=== PATIENT | male | born 1940 | race Caucasian/White ===

== ENCOUNTER → 2019-10-28 22:23 | Outpatient (CLI) | payer MEDICARE, OTHER ==
[2018-03-10 16:06] VITALS: BMI 21.9
[~2019-10-28 22:23] MED LIST: CLEOCIN HCL300 MG PO; LIBRIUM5 MG PO; LISINOPRIL10 MG PO; ZYLOPRIM300 MG PO
[2019-10-28 22:52] LABS: BASOPHILS 0.3 % (0-2); EOSINOPHILS 2.4 % (0-7); HEMOGLOBIN 12.3 g/dL (13.5-17.5); IMMATURE GRANULOCYTES 0.2 % (0-5); LYMPHOCYTES 12.3 % (15-50); MCH 32.7 pg (26.0-34.0); MCHC 32.4 g/dL (31.0-37.0); MCV 101.1 fL (80.0-100.0); MEAN PLATELET VOLUME 9.4 fL (7.4-10.4); MONOCYTES 11.7 % (2-11); NEUTROPHILS 73.1 % (40-80); RBC 3.76 10x6/uL (4.20-6.10); RDW 13.4 % (11.5-14.5); WBC 5.8 10x3/uL (4.8-10.8)
[2019-10-28 22:53] LABS: PLATELET COUNT 320 10x3/uL (130-400)
[2019-10-28 23:18] LABS: CALC OSMOLALITY 271 mosm/kg (275-300); CALCIUM 8.3 mg/dL (8.5-10.1); CARBON DIOXIDE 27.2 mmol/L (21.0-32.0); CHLORIDE - SERUM 103 mmol/L (98-107); GLUCOSE 93 mg/dL (74-106); POTASSIUM - SERUM 3.8 mmol/L (3.5-5.1); SODIUM 136 mmol/L (136-145); UREA NITROGEN 13 mg/dL (7-18); eGFR NON AFRICAN AMERICAN 77 mL/min (90-120)
== END | disposition home or self-care (01) ==
LOC: D.LABREF 22:23
PROVIDERS: ATTEND Family Medicine
DX: I10 Essential (primary) hypertension (principal)

== ENCOUNTER 2020-05-24 10:24 | Inpatient (IN) | payer MEDICARE, OTHER ==
[~2020-05-24] VITALS: Ht 170.2 cm; Wt 59.0 kg
[2020-05-24 11:58] LABS: BASOPHILS 0.1 % (0-2); EOSINOPHILS 0.1 % (0-7); HEMATOCRIT 39.2 % (42.0-54.0); HEMOGLOBIN 13.1 g/dL (13.5-17.5); IMMATURE GRANULOCYTES 0.2 % (0-5); LYMPHOCYTE ABS# 0.55 10x3/uL (1.32-3.57); LYMPHOCYTES 3.7 % (15-50); MCHC 33.4 g/dL (31.0-37.0); MCV 95.8 fL (80.0-100.0); MEAN PLATELET VOLUME 9.1 fL (7.4-10.4); MONOCYTES 4.1 % (2-11); NEUTROPHIL ABS# 13.76 10x3/uL (1.78-5.38); NEUTROPHILS 91.8 % (40-80); RBC 4.09 10x6/uL (4.20-6.10); RDW 13.8 % (11.5-14.5)
[2020-05-24 12:02] LABS: PLATELET COUNT 240 10x3/uL (130-400)
[2020-05-24 12:05] LABS: APTT 28.5 SECONDS (22.8-39.4); INR 1.23 (0.85-1.17); PROTIME 14.4 SECONDS (11.6-15.0)
[2020-05-24 12:06] LABS: CALC OSMOLALITY 271 mosm/kg (275-300); CALCIUM 8.3 mg/dL (8.5-10.1); CARBON DIOXIDE 26.8 mmol/L (21.0-32.0); CHLORIDE - SERUM 104 mmol/L (98-107); CREATININE - SERUM 0.9 mg/dL (0.6-1.3); GLUCOSE 139 mg/dL (74-106); SODIUM 135 mmol/L (136-145); UREA NITROGEN 13 mg/dL (7-18); eGFR NON AFRICAN AMERICAN 87 mL/min (90-120)
[2020-05-24 12:21] LABS: ALBUMIN 3.4 g/dL (3.4-5.0); ALKALINE PHOSPHATASE 76 U/L (30-120); ALT (SGPT) 16 U/L (10-68); BILIRUBIN - TOTAL 0.76 mg/dL (0.2-1.3); CREATINE KINASE 56 UL (21-232); MAGNESIUM - SERUM 1.8 mg/dL (1.8-2.4); PROTEIN - SERUM 6.1 g/dL (6.4-8.2); TROPONIN-I < 0.017 ng/mL (0.000-0.060)
--- NOTE | 2020-05-24 13:18 | NUR ---
URINE COLLECTED AND SENT TO LAB. URINE TYLER AND CLEAR IN COLOR.
[2020-05-24 13:55] LABS: BILIRUBIN NEGATIVE (NEGATIVE); KETONE MODERATE mg/dL (NEGATIVE); NITRITE NEGATIVE (NEGATIVE); UROBILINOGEN NORMAL mg/dL (< 2)
[2020-05-24 13:56] LABS: BACTERIA FEW HPF (NONE SEEN); WHITE CELLS - URINE 2 HPF (0-1)
[2020-05-24 15:28] VITALS: BP 107/74
[2020-05-24 18:33] VITALS: BP 137/85; BMI 20.4
[2020-05-24 18:36] LABS: HEMATOCRIT 38.2 % (42.0-54.0); HEMOGLOBIN 12.5 g/dL (13.5-17.5)
--- NOTE | 2020-05-24 18:48 | NUR ---
IN BED, DENIES NEEDS AT THIS TIME. BED LOW POSITION, CALL LIGHT IN REACH. MAL ALARM ON, IV INFUSING PER MAR. WILL CONTINUE TO MONITOR.
--- NOTE | 2020-05-24 19:24 | NUR ---
PATIENT UNABLE TO VOID AT THIS TIME. PATIENT STATED HE HAS NOT URINATED SINCE THIS MORNING. BLADDER SCAN REVEALED 485 ML.
[2020-05-24] MEDS ORDERED: BAYER CHEWABLE81 MG PO (19:34)
--- NOTE | 2020-05-24 19:37 | NUR ---
EUSEBIO MOSES IN REGARDS TO PATIENT BEING UNABLE TO VOID.
--- NOTE | 2020-05-24 19:37 | NUR ---
SPOKE WITH PATIENT'S AND UPDATED HER ON PATIENT. ALSO GOT UPDATED MED LIST FROM PATIENT'S .
--- NOTE | 2020-05-24 19:42 | NUR ---
SPOKE WITH AURELIA AND MARLYN'D ORDER FOR HAQUE CATH PLACEMENT
[2020-05-24 20:00] VITALS: BP 140/92
--- NOTE | 2020-05-24 21:26 | NUR ---
PLACED 22G TO PATIENT'S RIGHT FA.
--- NOTE | 2020-05-24 22:24 | NUR ---
PAGETari MOSES, COMPUTER GRAPHICS ILLUSTRATOR, IN REGARDS TO PATIENT'S ELEVATED PULSE
[2020-05-24 22:55] LABS: HEMATOCRIT 37.8 % (42.0-54.0); HEMOGLOBIN 12.7 g/dL (13.5-17.5)
[2020-05-25] VITALS (12 sets, daily range): BP systolic 87–147; BP diastolic 50–85
[2020-05-25 05:24] LABS: BASOPHILS 0.2 % (0-2); EOSINOPHILS 0 % (0-7); HEMATOCRIT 36.2 % (42.0-54.0); HEMOGLOBIN 11.9 g/dL (13.5-17.5); IMMATURE GRANULOCYTES 0.2 % (0-5); LYMPHOCYTE ABS# 0.77 10x3/uL (1.32-3.57); LYMPHOCYTES 6.6 % (15-50); MCH 32.1 pg (26.0-34.0); MCHC 32.9 g/dL (31.0-37.0); MCV 97.6 fL (80.0-100.0); MEAN PLATELET VOLUME 9.5 fL (7.4-10.4); MONOCYTES 11.5 % (2-11); NEUTROPHIL ABS# 9.44 10x3/uL (1.78-5.38); NEUTROPHILS 81.5 % (40-80); PLATELET COUNT 236 10x3/uL (130-400); RBC 3.71 10x6/uL (4.20-6.10); RDW 14.1 % (11.5-14.5); WBC 11.6 10x3/uL (4.8-10.8)
[2020-05-25 06:10] LABS: ALBUMIN 2.9 g/dL (3.4-5.0); BILIRUBIN - TOTAL 1.09 mg/dL (0.2-1.3); CALCIUM 8.1 mg/dL (8.5-10.1); CARBON DIOXIDE 23.8 mmol/L (21.0-32.0); CREATININE - SERUM 1.1 mg/dL (0.6-1.3); MAGNESIUM - SERUM 2.4 mg/dL (1.8-2.4); POTASSIUM - SERUM 3.8 mmol/L (3.5-5.1)
--- NOTE | 2020-05-25 08:12 | NUR ---
SPOKE TO DEN ADAIR APN. SPOKE ABOUT PATIENT SAFETY. HE IS PULLING IV OUT, PULLING AT HAQUE CATHETER CAUSING BLEEDING, AND PULLING TELEMETRY PADS OFF. PLACED SOFT WRIST RESTRAINTS ON LEFT AND RIGHT WRISTS.
[2020-05-25 08:35] LABS: INR 1.33 (0.85-1.17); PROTIME 15.3 SECONDS (11.6-15.0)
--- NOTE | 2020-05-25 10:48 | NUR ---
PATIENT LEFT UNIT VIA BED TO SURGERY PROCEDURE AT THIS TIME.
--- NOTE | 2020-05-25 13:11 | NUR ---
PT ARRIVED TO OR IN 2 PT SOFT RESTRAINTS SECONDARY TO CONFUASION RESULTING IN ATTEMPTS TO PULL OUT IV AND HAQUE CATHETER. PT VERY CONFUSED PER POST-OP REPORT. 2 PT SOFT RESTRAINTS CONTINUED BASED UPON ASSESSMENT.
--- NOTE | 2020-05-25 13:35 | NUR ---
RECIEVED TELEPHONE REPORT FROM RECOVERY ROOM NURSE MEHNAZ BRUNO.
--- NOTE | 2020-05-25 14:09 | NUR ---
PT REMAINS IN 2 PT SOFT RESTRAINTS DUE TO CONTINUED ATTEMPTS TO PULL ON HAQUE CATHETER AND IV. REPORT GIVEN TO RECEIVING RN ON MED/SURG
--- NOTE | 2020-05-25 14:54 | NUR ---
PATIENT BACK ON UNIT FROM RECOVERY ROOM VIA BED. SOFT WRIST RESTRAINTS IN PLACE. PATIENT STILL ATTEMPTING TO PULL AT IV LINES, AND TELEMETRY PADS. VITAL SIGNS STABLE. NASAL CANNULA 4 LITERS OXYGEN AT 95%. BED LOW POSITION, CALL LIGHT IN REACH. WILL CONTINUE TO MONITOR.
[2020-05-25 17:09] LABS: HEMATOCRIT 30.4 % (42.0-54.0); HEMOGLOBIN 9.8 g/dL (13.5-17.5)
--- NOTE | 2020-05-25 18:52 | NUR ---
ADMINISTERED 250ML BOLUS PER ORDERS.
--- NOTE | 2020-05-25 21:27 | NUR ---
ADMINISTERED MEDS PER ORDERS. PATIENT MAZIN WELL. DENIES OTHER NEEDS AT THIS TIME.
[2020-05-25 23:09] LABS: HEMATOCRIT 28.7 % (42.0-54.0); HEMOGLOBIN 9.3 g/dL (13.5-17.5)
[2020-05-26 03:59] VITALS: BP 134/57
--- NOTE | 2020-05-26 05:57 | NUR ---
DID NOT REMOVE HAQUE PER ORDER. WILL ASK DAYSHIFT NURSE TO DISCUSS REMOVAL WITH ORDERING PHYSICIAN. HAQUE PLACEMENT RELATED TO URINARY RETENTION.
--- NOTE | 2020-05-26 06:28 | NUR ---
NOTIFIED JADEN SUAREZ OF 200ML OUTPUT IN HAQUE CATH.
[2020-05-26 07:14] LABS: BASOPHILS 0.1 % (0-2); EOSINOPHILS 0.5 % (0-7); HEMATOCRIT 27.1 % (42.0-54.0); HEMOGLOBIN 8.6 g/dL (13.5-17.5); IMMATURE GRANULOCYTES 0.2 % (0-5); LYMPHOCYTE ABS# 0.91 10x3/uL (1.32-3.57); LYMPHOCYTES 9.5 % (15-50); MCH 31.5 pg (26.0-34.0); MCHC 31.7 g/dL (31.0-37.0); MCV 99.3 fL (80.0-100.0); MEAN PLATELET VOLUME 9.4 fL (7.4-10.4); MONOCYTES 10.7 % (2-11); NEUTROPHIL ABS# 7.52 10x3/uL (1.78-5.38); RDW 14.1 % (11.5-14.5); WBC 9.5 10x3/uL (4.8-10.8)
[2020-05-26 07:33] LABS: ALKALINE PHOSPHATASE 40 U/L (30-120); ALT (SGPT) 11 U/L (10-68); BILIRUBIN - TOTAL 0.67 mg/dL (0.2-1.3); CALCIUM 7.4 mg/dL (8.5-10.1); CARBON DIOXIDE 23.2 mmol/L (21.0-32.0); CHLORIDE - SERUM 110 mmol/L (98-107); GLUCOSE 89 mg/dL (74-106); MAGNESIUM - SERUM 2.6 mg/dL (1.8-2.4); POTASSIUM - SERUM 3.6 mmol/L (3.5-5.1); SODIUM 140 mmol/L (136-145); eGFR NON AFRICAN AMERICAN 77 mL/min (90-120)
[2020-05-26 07:35] LABS: CALC OSMOLALITY 281 mosm/kg (275-300); PROTEIN - SERUM 4.4 g/dL (6.4-8.2); UREA NITROGEN 24 mg/dL (7-18)
[2020-05-26 07:38] LABS: RBC 2.73 10x6/uL (4.20-6.10)
[2020-05-26 07:39] LABS: PLATELET COUNT 160 10x3/uL (130-400)
[2020-05-26 09:01] VITALS: BP 96/59
--- NOTE | 2020-05-26 09:25 | NUR ---
PT SITTING UP IN BED. AWAKE ALERT TO PERSON ONLY. DOES NOT PRESENT WITH PAIN. SPEECH IS GARBLED. HE IS RESTLESS ATTEMPTING TO PULL AT TELEMETRY AND F/C TUBING. SOFT WRIST RESTRAINTS IN PLACE BILATERALLY. PULSES PALPABLE EXTREMITIES WARM TO TOUCH. ENCOURAGED PT IN EATING ASSISTING HIM, HOWEVER PT TURNS HEAD AWAY FROM STAFF. CL WITHIN REACH. CONTINUE POC
[2020-05-26 11:15] LABS: HEMATOCRIT 28.4 % (42.0-54.0)
[2020-05-26 14:04] LABS: SARS-CoV-2 ANTIGEN NEGATIVE- SARS-COV-2 (NEGATIVE)
[2020-05-26 14:28] VITALS: BP 108/54
[2020-05-26 18:33] VITALS: BP 120/54
[2020-05-26 20:35] LABS: HEMATOCRIT 26.1 % (42.0-54.0); HEMOGLOBIN 8.6 g/dL (13.5-17.5)
--- NOTE | 2020-05-26 21:00 | NUR ---
Assumed care of pt at 1900. Report rec'd. Pt is in bed and resting with patent IV running per order. Pt has been repositioned to assist with pain and this was effective. Pt does continue to shift bottom half of body over to the Rt side and attempt to masturbate with barkley cath in. Pt repositioned now 3 times to prevent same. Pt does calm with voice and does not appear to be in any distress. Pt does also try to pinch and pull at staff providing cares if soft wrist restraints off. Son Davon called this evening as well.
[2020-05-26 21:18] VITALS: BP 151/63
[2020-05-27 00:51] VITALS: BP 116/57
--- NOTE | 2020-05-27 00:52 | NUR ---
Pt does continue to shift bottom and try pinching staff. This nurse continues to reposition pt. and check/release restraints. Pt remains mumbling incoherent words, addendum from last note. Does calm with voice and reassurance.
[2020-05-27 03:13] LABS: BASOPHILS 0.2 % (0-2); EOSINOPHILS 1.9 % (0-7); HEMATOCRIT 26.1 % (42.0-54.0); HEMOGLOBIN 8.5 g/dL (13.5-17.5); IMMATURE GRANULOCYTES 0.1 % (0-5); LYMPHOCYTE ABS# 0.95 10x3/uL (1.32-3.57); LYMPHOCYTES 10.6 % (15-50); MCH 32.1 pg (26.0-34.0); MCHC 32.6 g/dL (31.0-37.0); MCV 98.5 fL (80.0-100.0); MEAN PLATELET VOLUME 9.2 fL (7.4-10.4); MONOCYTES 9.2 % (2-11); NEUTROPHIL ABS# 6.96 10x3/uL (1.78-5.38); PLATELET COUNT 185 10x3/uL (130-400); RBC 2.65 10x6/uL (4.20-6.10); RDW 13.8 % (11.5-14.5); WBC 8.9 10x3/uL (4.8-10.8)
[2020-05-27 03:21] LABS: INR 1.31 (0.85-1.17); PROTIME 15.1 SECONDS (11.6-15.0)
[2020-05-27 03:27] LABS: ALBUMIN 2.2 g/dL (3.4-5.0); ALKALINE PHOSPHATASE 49 U/L (30-120); BILIRUBIN - TOTAL 0.96 mg/dL (0.2-1.3); CALC OSMOLALITY 285 mosm/kg (275-300); CALCIUM 7.2 mg/dL (8.5-10.1); CARBON DIOXIDE 23.1 mmol/L (21.0-32.0); CHLORIDE - SERUM 110 mmol/L (98-107); GLUCOSE 79 mg/dL (74-106); MAGNESIUM - SERUM 2.2 mg/dL (1.8-2.4); POTASSIUM - SERUM 3.9 mmol/L (3.5-5.1); PROTEIN - SERUM 5.1 g/dL (6.4-8.2); SODIUM 142 mmol/L (136-145); UREA NITROGEN 24 mg/dL (7-18); eGFR NON AFRICAN AMERICAN 77 mL/min (90-120)
[2020-05-27 03:31] LABS: ALT (SGPT) 14 U/L (10-68)
--- NOTE | 2020-05-27 05:44 | NUR ---
Pt is resting in bed at this time. Pt did answer yes to last assessment of pain with PRN MS given and effective results achieved. Pt has slept well since. Pt does wake to painful stimuli and removal or blankets but, otherwise sleeping soundly. Soft wrist restraints remain as pt has removed dressing to Rt distal hip incion, broken O2 cannula and removed secure cath strip t/o the night. No s/sx of pain/discomfort at this time.
[2020-05-27 05:48] VITALS: BP 121/58
[2020-05-27 07:56] VITALS: BP 135/87
--- NOTE | 2020-05-27 09:35 | NUR ---
PT RESTING QUIETLY IN BED AFTER PROVIDING PERSONAL CARE. ATTEMPTED TO ADMINISTER AM MEDICATIONS, PT AROUSES, BUT NOT SUFFICIENTLY TO ADMINISTER ORAL MEDICATIONS HE WILL NOT SAFELY CONSUME ORAL LIQUIDS. ATTEMPTED TO ASSIST PT WITH EATING BREAKFAST, BUT PT WOULD NOT OPEN MOUTH TO EAT. BILAT SOFT WRIST RESTRAINTS REMOVED AT THIS TIME TO PROVIDE ROM, PT THEN BEGINS PULLING AT F/C AND TELEMETRY, SO BILAT SOFT WRIST RESTRAINTS PLACED BACK ON PT. CL WITHIN REACH. HOB UP 30 DEGREES. CONTINUE POC
--- NOTE | 2020-05-27 10:00 | NUR ---
CONTACTED PT SPOUSE FOR UPDATE.
[2020-05-27 10:55] VITALS: Ht 170.2 cm; Wt 59.0 kg
[2020-05-27 12:23] VITALS: BP 154/77
[2020-05-27 13:11] LABS: HEMATOCRIT 26.9 % (42.0-54.0); HEMOGLOBIN 8.5 g/dL (13.5-17.5)
--- NOTE | 2020-05-27 14:00 | NUR ---
PT REPOSITIONED FOR COMFORT. SOFT WRIST RESTRAINTS REMOVED FOR ROM. OFFERED WATER AT THIS TIME. PT WOULD TAKE STRAW IN MOUTH, BUT BLOW ON STRAW. ATTEMPTED TO ASSIST PT WITH DRINKING FROM CUP, BUT PT ONLY JERKED HEAD AWAY FROM CUP. ATTEMPTED TO SPOON FEED WATER TO PT, PT CLAMPED LIPS TOGETHER, PREVENTING STAFF FROM PROVIDING HYDRATION. WILL CONTINUE TO OFFER HYDRATION. BILAT WRIST RESTRAINTS PLACED DUE TO CONTINUED PULLING F/C, REMOVING O2 AND ATTEMPTING TO GRAB STAFF FOR ASSISTING HIM, PT STAFF. CL WITHIN REACH.
--- NOTE | 2020-05-27 17:00 | NUR ---
PT BILAT SOFT WRIST TAKEN OFF FOR ROM AND SKIN ASSESSMENT. PROVIDED AUGUSTO CARE/F/C CARE. DRESSING CHANGE COMPLETED AT THIS TIME. CLEANED 3 INCISIONS TO RIGHT HIP WITH SALINE. ADRIENNE INTACT TO 3 INCISIONS, EDGES WELL APPROXIMATED. SEROSANGUINEOUS DRAINAGE NOTED FROM ANTERIOR INCISION. LINENS CHANGED TO BED. BILAT SOFT WRIST RESTRAINTS PLACED BACK ON PT.
[2020-05-27 17:02] LABS: HEMATOCRIT 27.1 % (42.0-54.0); HEMOGLOBIN 8.7 g/dL (13.5-17.5)
[2020-05-27 17:15] VITALS: BP 160/97
--- NOTE | 2020-05-27 19:45 | NUR ---
Assumed care of pt at shift change. Pt in bed resting and does answer some questions with yes or no but, continues to make incomprehensible sounds. Pt is slightly restless. Did assist with repositioning and restraint assessment. Pt continues to throw blankets, sheet and gown off. Assisted to replace same. Pt did answer yes to pain on assessment. Will administer pain meds per PRN order. IV and barkley both patent.
[2020-05-27 20:31] VITALS: BP 154/100
[2020-05-27 23:41] LABS: HEMATOCRIT 27.2 % (42.0-54.0); HEMOGLOBIN 9.1 g/dL (13.5-17.5)
[2020-05-28 00:25] VITALS: BP 165/98
[2020-05-28 04:01] VITALS: BP 152/86
--- NOTE | 2020-05-28 06:12 | NUR ---
Pt is sleeping in bed at this time. Did continue to remain restless and kicking off blankets, trying to pull on tubing, dressing and even foly cath. Cath secure clamp pulled off by pt twice t/o the night. Pt does settle and sleep after repositioning. Pt asleep this morning and could not wake for med. Pt took meds last night in pudding and a significant amount of coaching, reminders and feeding. Only able to get 15ml of pudding and 40ml of apple juice in pt t/o the night. Will request day shift speak to hospitalist in regards to am PO Protonix possibly being changed to IV.
[2020-05-28 06:58] LABS: INR 1.44 (0.85-1.17); PROTIME 16.3 SECONDS (11.6-15.0)
[2020-05-28 07:07] LABS: ALBUMIN 2.4 g/dL (3.4-5.0); ALKALINE PHOSPHATASE 48 U/L (30-120); ALT (SGPT) 15 U/L (10-68); BILIRUBIN - TOTAL 1.15 mg/dL (0.2-1.3); CALC OSMOLALITY 278 mosm/kg (275-300); CALCIUM 7.7 mg/dL (8.5-10.1); CARBON DIOXIDE 17.3 mmol/L (21.0-32.0); CHLORIDE - SERUM 108 mmol/L (98-107); CREATININE - SERUM 0.7 mg/dL (0.6-1.3); GLUCOSE 69 mg/dL (74-106); MAGNESIUM - SERUM 2.1 mg/dL (1.8-2.4); POTASSIUM - SERUM 3.4 mmol/L (3.5-5.1); PROTEIN - SERUM 5.4 g/dL (6.4-8.2); SODIUM 141 mmol/L (136-145); UREA NITROGEN 13 mg/dL (7-18); eGFR NON AFRICAN AMERICAN > 90 mL/min (90-120)
[2020-05-28 07:35] LABS: BASOPHILS 0.1 % (0-2); EOSINOPHILS 2.1 % (0-7); HEMATOCRIT 26.1 % (42.0-54.0); HEMOGLOBIN 8.4 g/dL (13.5-17.5); IMMATURE GRANULOCYTES 0.2 % (0-5); LYMPHOCYTE ABS# 0.94 10x3/uL (1.32-3.57); LYMPHOCYTES 10.3 % (15-50); MCH 31.8 pg (26.0-34.0); MCHC 32.2 g/dL (31.0-37.0); MCV 98.9 fL (80.0-100.0); MEAN PLATELET VOLUME 9.4 fL (7.4-10.4); MONOCYTES 8.8 % (2-11); NEUTROPHIL ABS# 7.15 10x3/uL (1.78-5.38); NEUTROPHILS 78.5 % (40-80); RBC 2.64 10x6/uL (4.20-6.10); RDW 13.6 % (11.5-14.5); WBC 9.1 10x3/uL (4.8-10.8)
[2020-05-28 07:38] LABS: PLATELET COUNT 265 10x3/uL (130-400)
[2020-05-28 08:13] VITALS: BP 132/78
--- NOTE | 2020-05-28 08:47 | NUR ---
SPOKE WITH DR BARAJAS REGARDING CONSULT. STATES HE WILL BE HERE TO SEE HIM
[2020-05-28 10:53] LABS: HEMATOCRIT 24.9 % (42.0-54.0); HEMOGLOBIN 8.1 g/dL (13.5-17.5)
[2020-05-28 12:30] VITALS: BP 134/71
[2020-05-28 17:24] LABS: HEMATOCRIT 27.6 % (42.0-54.0); HEMOGLOBIN 8.9 g/dL (13.5-17.5)
[2020-05-28 18:35] VITALS: BP 162/94
[2020-05-28 23:56] LABS: HEMATOCRIT 27.9 % (42.0-54.0); HEMOGLOBIN 9.5 g/dL (13.5-17.5)
[2020-05-29 00:55] VITALS: BP 144/88
--- NOTE | 2020-05-29 01:09 | NUR ---
This nurse did scna pt medications with wrist band before admin at HS. Pt was able to eat 1/2 of apple crisp at bedside and did drink 360ml of water. Pt took meds with encouragement and between bites of apple crisp and drinks of water. Pt later became combative and resistive to cares with Staff. Pt was also picking at jenna to Rt hip incision and ripped off dressing. Pt denied pain so ativen given per PRN order. Pt has finally settled after repositioning again with a warm blanket. Pt has been turned with pressure relief to Rt side/buttock and, pt continues to turn self to that side.
[2020-05-29 05:15] VITALS: BP 123/56; BP 155/59
[2020-05-29 07:38] LABS: INR 1.46 (0.85-1.17); PROTIME 16.4 SECONDS (11.6-15.0)
[2020-05-29 07:40] LABS: BASOPHILS 0.2 % (0-2); EOSINOPHILS 4.3 % (0-7); HEMATOCRIT 26.7 % (42.0-54.0); HEMOGLOBIN 8.9 g/dL (13.5-17.5); IMMATURE GRANULOCYTES 0.1 % (0-5); LYMPHOCYTE ABS# 1.02 10x3/uL (1.32-3.57); LYMPHOCYTES 12.6 % (15-50); MCH 32.1 pg (26.0-34.0); MCHC 33.3 g/dL (31.0-37.0); MCV 96.4 fL (80.0-100.0); MEAN PLATELET VOLUME 8.9 fL (7.4-10.4); MONOCYTES 13.1 % (2-11); NEUTROPHIL ABS# 5.62 10x3/uL (1.78-5.38); NEUTROPHILS 69.7 % (40-80); PLATELET COUNT 268 10x3/uL (130-400); RBC 2.77 10x6/uL (4.20-6.10); RDW 13.1 % (11.5-14.5); WBC 8.1 10x3/uL (4.8-10.8)
[2020-05-29 07:55] LABS: ALBUMIN 2.2 g/dL (3.4-5.0); ALKALINE PHOSPHATASE 44 U/L (30-120); ALT (SGPT) 16 U/L (10-68); BILIRUBIN - TOTAL 0.98 mg/dL (0.2-1.3); CALCIUM 8.1 mg/dL (8.5-10.1); CHLORIDE - SERUM 106 mmol/L (98-107); CREATININE - SERUM 0.7 mg/dL (0.6-1.3); MAGNESIUM - SERUM 1.9 mg/dL (1.8-2.4); POTASSIUM - SERUM 3.3 mmol/L (3.5-5.1); PROTEIN - SERUM 5.4 g/dL (6.4-8.2); SODIUM 137 mmol/L (136-145); UREA NITROGEN 11 mg/dL (7-18); eGFR NON AFRICAN AMERICAN > 90 mL/min (90-120)
[2020-05-29 07:59] LABS: CALC OSMOLALITY 273 mosm/kg (275-300); CARBON DIOXIDE 22.7 mmol/L (21.0-32.0); GLUCOSE 111 mg/dL (74-106)
--- NOTE | 2020-05-29 09:39 | NUR ---
ALERT BUT NOT VERBALLY RESPONSIVE TO QUESTIONS. FOLLOWS COMMANDS. ASSESSMENT COMPLETE. BED LOW. CALL MORSE AND PERSONAL ITEMS IN REACH. WILL CONTINUE TO MONITOR.
[2020-05-29 10:26] VITALS: BP 153/87
--- NOTE | 2020-05-29 11:00 | NUR ---
Nutrition follow-up: Pt receiving a regular diet; po intake very poor at meals per nurse Labs reviewed Wt: 130# No BM charted ProcalAmine PPN has started @ 75 ml/hr; providin kcal - 21-30% of estimated kcal needs 54 gm protein - 72-90% estimted protein needs Recommendations: Pt may benefit from an appetite stimulant. RDN follow-up: 06/01/20
[2020-05-29 11:01] LABS: HEMATOCRIT 28.3 % (42.0-54.0); HEMOGLOBIN 9.4 g/dL (13.5-17.5)
--- NOTE | 2020-05-29 11:34 | NUR ---
SIGN PLACED ABOVE DOOR STATING PATIENT IS FEEDER PER NURSING MESSAGE.
--- NOTE | 2020-05-29 12:29 | NUR ---
Nutrition follow-up: Pt discussed during IDT team meeting. Per speech pathologist, diet downgraded to regular puree ProcalAmine PPN infusing @ 75 ml/hr Labs reviewed Wt: 130# Still no BM charted; on colace Recommendations: Continue procalamine PPN @ 75 ml/hr Consider appetite stimulant RDN follow-up: 06/01/20
--- NOTE | 2020-05-29 12:43 | NUR ---
PATIENT REFUSING TO EAT LUNCH AT THIS TIME. WILL ATTEMPT AGAIN LATER.
[2020-05-29 15:12] VITALS: BP 145/94
--- NOTE | 2020-05-29 16:34 | NUR ---
PATIENT KNOCKED TRAY ON FLOOR. BEDDING CHANGED. ADJUSTED IN BED. AGGITATED ABOUT BEING ADJUSTED. STATES "IM GOING TO HIT YOU." SWINGING ARMS AND PULLING AT CATHETER. PLACED BACK IN RESTRAINTS. WILL CONTINUE TO MONITOR.
[2020-05-29 17:20] LABS: HEMATOCRIT 30.1 % (42.0-54.0)
--- NOTE | 2020-05-29 18:04 | NUR ---
PATIENT REQUESTING TO SPEAK WITH OR JADEN. JADEN SUAREZ NOTIFIED AND STATES WILL CALL PATIENT'S . PHONE NUMBER PROVIDED.
[2020-05-29 19:30] VITALS: BP 161/92
--- NOTE | 2020-05-29 19:42 | NUR ---
Assumed care of pt with report. Pt is lying in bed and resting at this time. Pt is alert but remains confused. Continuing to utilizes Numeric pain scale to assess for same. Reporsitioning is effective to assist with relief. IV and barkley remain patent. SOft wrist restraints assessed per protocal and CMS remains intact to all 4 extremities. Tele remains on and functioning appropriately.
[2020-05-29 21:01] VITALS: BP 164/95
[2020-05-29 23:08] LABS: HEMOGLOBIN 9.4 g/dL (13.5-17.5)
--- NOTE | 2020-05-29 23:15 | NUR ---
Pt has been alert this shift and still intermittently answering yes or no questions. Has denied pain and repositioning does assist when numeric scale has indicated pain is present. Pt did accept pills tonight however, did spit out his colace. Did attempt to give several times and pt refused same. In bed resting currently. IV remains patent and continuing with restraint assessments.
[2020-05-30 00:24] VITALS: BP 142/50
[2020-05-30 05:55] VITALS: BP 145/80
--- NOTE | 2020-05-30 06:07 | NUR ---
Pt has been alert and awake most of the night. Repositioned many times t/o night and attempted to just leave one limb in soft wrist restraint with this nurse present. Pt continued to pull at lines, barkley, etc. Unable to educate or redirect without this nurse being grabbed at and pinched. Pt has otherwise been calm and cooperative. Dressing changed to Rt hip as pt removed when one hand was free.
[2020-05-30 06:48] LABS: BASOPHILS 0.3 % (0-2); EOSINOPHILS 2.9 % (0-7); HEMATOCRIT 28.4 % (42.0-54.0); HEMOGLOBIN 9.6 g/dL (13.5-17.5); IMMATURE GRANULOCYTES 0.2 % (0-5); LYMPHOCYTE ABS# 1.18 10x3/uL (1.32-3.57); LYMPHOCYTES 12.3 % (15-50); MCH 32.2 pg (26.0-34.0); MCHC 33.8 g/dL (31.0-37.0); MCV 95.3 fL (80.0-100.0); MEAN PLATELET VOLUME 9.3 fL (7.4-10.4); MONOCYTES 11.7 % (2-11); NEUTROPHIL ABS# 6.96 10x3/uL (1.78-5.38); NEUTROPHILS 72.6 % (40-80); PLATELET COUNT 320 10x3/uL (130-400); RBC 2.98 10x6/uL (4.20-6.10); WBC 9.6 10x3/uL (4.8-10.8)
[2020-05-30 07:06] LABS: INR 1.49 (0.85-1.17); PROTIME 16.7 SECONDS (11.6-15.0)
[2020-05-30 08:36] VITALS: BP 131/63
[2020-05-30 11:12] LABS: HEMATOCRIT 28.2 % (42.0-54.0); HEMOGLOBIN 9.3 g/dL (13.5-17.5)
--- NOTE | 2020-05-30 11:40 | NUR ---
RESTING IN BED, NO DISTRESS NOTED, WRIST RESTRAINTS IN PLACE, IV PROCAL INFUSING, O2 PER NC, HAQUE TO GRAVITY, URINE CONCENTRATED, TELE IN PLACE, CONT TO MONITOR
[2020-05-30 12:08] VITALS: BP 114/66
--- NOTE | 2020-05-30 15:59 | NUR ---
CALLED CONCERNED ABOUT PT TOE NAILS AND POOR INTAKE WITH HIM SLEEPING ALL DAY, WILL HOLD PT SUPPER TRAY TILL LATE AND SEE IF PT WAKES UP AND EATS
[2020-05-30 17:06] VITALS: BP 116/65
[2020-05-30 17:33] LABS: HEMATOCRIT 28.1 % (42.0-54.0); HEMOGLOBIN 9.3 g/dL (13.5-17.5)
--- NOTE | 2020-05-30 19:20 | NUR ---
Assumed care of pt after rounds/report. Pt lying in bed alert and oriented to self. Pt stated, "I fell". This nurse replied, "Yes you did". Pt teaching about surgery and broken hip. Pt did grab right hip and said, "Yeah. I broke this one". Pt also asked about his daughter and why she didn't stay longer. Pt aware daughter had recently been in room. Pt refused all food except 1/3 of slice of pie in room. This nurse also assisted pt to take 180ml of fluid. Pt in bed resting at this time. Landa and IV remain patent.
[2020-05-30 20:37] VITALS: BP 116/73
[2020-05-30 23:40] LABS: HEMATOCRIT 27.7 % (42.0-54.0); HEMOGLOBIN 9.2 g/dL (13.5-17.5)
[2020-05-31 01:02] VITALS: BP 123/55
[2020-05-31 04:44] VITALS: BP 112/74
--- NOTE | 2020-05-31 07:42 | NUR ---
resting in bed, no distress noted, procal infusing, barkley to gravity, wrist restraints remain in place, cont to monitor
[2020-05-31 07:45] LABS: BASOPHILS 0.2 % (0-2); EOSINOPHILS 4.2 % (0-7); HEMATOCRIT 29.7 % (42.0-54.0); HEMOGLOBIN 9.8 g/dL (13.5-17.5); IMMATURE GRANULOCYTES 0.4 % (0-5); LYMPHOCYTE ABS# 1.25 10x3/uL (1.32-3.57); LYMPHOCYTES 13.3 % (15-50); MCH 31.7 pg (26.0-34.0); MCV 96.1 fL (80.0-100.0); MEAN PLATELET VOLUME 9.3 fL (7.4-10.4); NEUTROPHIL ABS# 6.66 10x3/uL (1.78-5.38); NEUTROPHILS 70.9 % (40-80); RBC 3.09 10x6/uL (4.20-6.10); RDW 13.5 % (11.5-14.5); WBC 9.4 10x3/uL (4.8-10.8)
[2020-05-31 07:49] LABS: PLATELET COUNT 397 10x3/uL (130-400)
[2020-05-31 07:58] LABS: INR 1.48 (0.85-1.17); PROTIME 16.7 SECONDS (11.6-15.0)
[2020-05-31 08:13] LABS: ALBUMIN 2.3 g/dL (3.4-5.0); ALKALINE PHOSPHATASE 49 U/L (30-120); ALT (SGPT) 18 U/L (10-68); BILIRUBIN - TOTAL 0.95 mg/dL (0.2-1.3); CALCIUM 8.5 mg/dL (8.5-10.1); CARBON DIOXIDE 27.8 mmol/L (21.0-32.0); CHLORIDE - SERUM 103 mmol/L (98-107); CREATININE - SERUM 0.7 mg/dL (0.6-1.3); GLUCOSE 93 mg/dL (74-106); PROTEIN - SERUM 6.1 g/dL (6.4-8.2); SODIUM 137 mmol/L (136-145); eGFR NON AFRICAN AMERICAN > 90 mL/min (90-120)
[2020-05-31 08:15] LABS: CALC OSMOLALITY 274 mosm/kg (275-300); POTASSIUM - SERUM 3.8 mmol/L (3.5-5.1); UREA NITROGEN 14 mg/dL (7-18)
--- NOTE | 2020-05-31 09:35 | EC ---
PATIENT:RENE ZHANG DATE OF SERVICE: 05/24/20 SEX: M MEDICAL RECORD: [id number] DATE OF : 44 LOCATION:[facility] AGE OF PATIENT: 79 ADMISSION DATE: 05/24/20 REFERRING PHYSICIAN: INTERPRETING PHYSICIAN: JAMES NEAL MD ECHOCARDIOGRAM REPORT ECHO CHARGES 5 ECHO LIMITED Date: 05/28/20 CLINICAL DIAGNOSIS: ARRHYTHMIA, ASSESS EF ECHOCARDIOGRAPHIC MEASUREMENTS (adult normal given) AC root (d.<3.7cm) 5.0 cm LV Septum d (<1.2 cm> 1.4 cm Valve Excursion 2.2 cm LV Septum (systole) 1.6 cm Left Atria (s.<4.0cm> 3.8 cm LVPW d(<1.2cm) 1.4 cm RV (d.<2.3cm) 3.7 cm LVPW (sytole) 1.7 cm LV diastole(<5.6CM) 4.7 cm MV E-F(>70mm/sec) cm LV systole 3.4 cm LVOT Diameter 2.1 cm MV exc.(>10mm) cm Est.ejection fraction (50-75%) % DOPPLER: LVIT cm/sec A cm/sec E cm/sec LA cm/sec RVSP mmHg LVOT cm/sec AOP1/2T m/s Asc. Ao cm/sec RVOT cm/sec RA cm/sec PA cm/sec AV Gradient Peak 6.42 mmHg AV Mean 3.49 mmHg AV Area 2.2 cm MV Gradient Peak mmHg MV Mean mmHg MV Area cm COMMENTS: Lpn Rn: 2 REINALDO MCCOY Technical Photographer: 3 Dr. Murcia TAPE# PACS Pericardial Effusion N DATE OF SERVICE: Adequate 2D, color flow imaging, spectral Doppler, and M-Mode. FINDINGS: Mild LVH. LV internal dimensions are normal. Wall motion is normal. EF is greater than or equal to 55%. Aortic valve is tricuspid. No evidence of stenosis by Doppler interrogation. Left atrium is normal. Mitral valve shows no prolapse. Trace MR. Right side is grossly normal. Trace TR. TRANSINT:[id number] Voice Confirmation ID: [id number] DOCUMENT ID: [id number] ECHOCARDIOGRAM REPORT [id number] RENE ZHANG JAMES NEAL MD at 0935 CC: [id number] DICTATION DATE: 05/29/20 1151 ART MANAGER: 05/29/20 1204 ADM IN [place] [id number] [facility], [facility]
[2020-05-31 10:34] VITALS: BP 122/80
[2020-05-31 11:00] VITALS: BP 154/61
[2020-05-31 12:11] LABS: HEMATOCRIT 28.8 % (42.0-54.0); HEMOGLOBIN 9.5 g/dL (13.5-17.5)
[2020-05-31 16:00] VITALS: BP 138/95
[2020-05-31 17:58] LABS: HEMATOCRIT 29.4 % (42.0-54.0); HEMOGLOBIN 9.8 g/dL (13.5-17.5)
--- NOTE | 2020-05-31 18:16 | NUR ---
MORE ALERT TODAY, PULLING LEGS UP TO HIS CHEST TO REMOVE SCD, REMOVING DRESSING FROM SURGICAL SITE X1 TODAY, WANTING TO CALL , PHONE LINE BUSY
--- NOTE | 2020-05-31 19:31 | NUR ---
Assumed care of pt after report/rounds. Pt in bed and significantly agitated. Has legs raised and pulling off SCD's along with tugging on Landa cath with other hand. Soft wrist restraints readjusted and checked. IV remains patent and running per order. Landa is patent and draining dark isaac urine. Pt on O2 via NC without SOB/dyspnea observed. Pt knows he is in [place] but, otherwise unclear where he is. Pt turned and repositioned in bed and this helped to settle a little.
[2020-05-31 19:58] VITALS: BP 159/99
--- NOTE | 2020-05-31 23:22 | NUR ---
Pt did accept 240ml of ice tea for this nurse along with 1/2 of the portioned mashed potatoes and gravy.
[2020-06-01 00:13] LABS: HEMATOCRIT 28.4 % (42.0-54.0); HEMOGLOBIN 9.6 g/dL (13.5-17.5)
[2020-06-01 04:52] LABS: BASOPHILS 0.2 % (0-2); EOSINOPHILS 3.1 % (0-7); HEMATOCRIT 27.8 % (42.0-54.0); HEMOGLOBIN 9.1 g/dL (13.5-17.5); IMMATURE GRANULOCYTES 0.2 % (0-5); LYMPHOCYTE ABS# 1.25 10x3/uL (1.32-3.57); MCH 31.8 pg (26.0-34.0); MCHC 32.7 g/dL (31.0-37.0); MCV 97.2 fL (80.0-100.0); MONOCYTES 12.7 % (2-11); NEUTROPHIL ABS# 6.82 10x3/uL (1.78-5.38); NEUTROPHILS 70.8 % (40-80); PLATELET COUNT 407 10x3/uL (130-400); RBC 2.86 10x6/uL (4.20-6.10); RDW 13.4 % (11.5-14.5); WBC 9.6 10x3/uL (4.8-10.8)
[2020-06-01 05:06] LABS: ALBUMIN 2.1 g/dL (3.4-5.0); ALKALINE PHOSPHATASE 52 U/L (30-120); ALT (SGPT) 16 U/L (10-68); BILIRUBIN - TOTAL 0.85 mg/dL (0.2-1.3); CALC OSMOLALITY 270 mosm/kg (275-300); CALCIUM 8.1 mg/dL (8.5-10.1); CARBON DIOXIDE 27.3 mmol/L (21.0-32.0); CHLORIDE - SERUM 102 mmol/L (98-107); CREATININE - SERUM 0.8 mg/dL (0.6-1.3); GLUCOSE 102 mg/dL (74-106); PROTEIN - SERUM 5.6 g/dL (6.4-8.2); SODIUM 135 mmol/L (136-145); UREA NITROGEN 15 mg/dL (7-18); eGFR NON AFRICAN AMERICAN > 90 mL/min (90-120)
[2020-06-01 06:24] VITALS: BP 103/64
--- NOTE | 2020-06-01 08:23 | NUR ---
RESTING QUIETLY WITH EYES CLOSED. NO NEEDS NOTED. SKIN IS INTACT WITHOUT REDNESS EXCEPT 3 SMALL INSERTION SITES TO RIGHT HIP WHICH ARE CLEAN AND DRY. LARGE HEMATOMA NOTED TO RIGHT HIP. THIS IS NOT NEW. IV TO RIGHT AC AREA PATENT WITHOUT REDNESS AT INSERTION SITE. HAQUE PATENT WITH CLEAR YELLOW URINE.
[2020-06-01 09:13] VITALS: BP 97/52
--- NOTE | 2020-06-01 10:00 | NUR ---
REFUSED ANY BREAKFAST. REFUSED OFFERS OF ALTERNATIVE MEALS. TOOK AM MEDS WITHOUT DIFFICULTY. DENIES NEEDS. HAQUE PATENT WITH CLEAR YELLOW URINE.
--- NOTE | 2020-06-01 10:31 | NUR ---
Rehab Prescreening Consult recieved and the chart has been reviewed. Per notes he has acute delerium possibly DT's combative, orritable and in wrist restraints. He is not mappropriate for the ARU at this time. Karolina Kirkland RN Clinical Liaison, Rehab
--- NOTE | 2020-06-01 10:37 | MORECARE ---
CASE MANAGEMENT DISCHARGE SUMMARY PATIENT: RENE ZHANG UNIT: [id number] ADM DATE: 05/24/20 AGE: 79 : 42 SEX: M ROOM/BED: D.2202 AUTHOR: BRITTNI AMATO PHYSICIAN: REFERRING PHYSICIAN: JULIAN REIS MD DATE OF SERVICE: 06/01/20 Discharge Plan Patient Name: RENE ZHANG Facility: [facility]:[place] : 1940 Planned Disposition: Inpatient Rehab Anticipated Discharge Date: Discharge Date: Expected LOS: Initial Reviewer: [email or web address] Initial Review Date: 05/24/2020 Generated: 06/01/20 11:36 am DCPIA - Discharge Planning Initial Assessment Updated by [email or web address]: Jena Pacheco on 06/01/20 10:35 am * Is the patient Alert and Oriented? Yes * How many steps to enter\exit or inside your home? * PCP NONE * Pharmacy [facility] * Preadmission Environment Home with Family * ADLs Independent * Equipment None * List name and contact numbers for known caregivers / representatives who currently or will assist patient after discharge: RIANA ( ) [phone] * Verbal permission to speak to the caregivers and representatives has been obtained from the patient. N/A * Community resources currently utilized None * Additional services required to return to the preadmission environment? Yes * Can the patient safely return to the preadmission environment? No * Has this patient been hospitalized within the prior 30 days at any hospital? No Patient Name: RENE ZHANG Page [id number] at 1037 All edits/amendments must be made on the electronic document DICTATION DATE: 06/01/20 1036 BOTTLE WASHER MACHINE: FLOR 06/01/20 1036 RPT#: [id number] DC DATE: STATUS: ADM IN [facility] [address] [place] [address] END OF REPORT
--- NOTE | 2020-06-01 10:53 | MORECARE ---
CASE MANAGEMENT DISCHARGE SUMMARY PATIENT: RENE ZHANG UNIT: [id number] ADM DATE: 05/24/20 AGE: 79 : 42 SEX: M ROOM/BED: D.2202 AUTHOR: BRITTNI AMATO PHYSICIAN: REFERRING PHYSICIAN: JULIAN REIS MD DATE OF SERVICE: 06/01/20 Discharge Plan Patient Name: RENE ZHANG Facility: [facility]:[place] : 1940 Planned Disposition: Inpatient Rehab Anticipated Discharge Date: Discharge Date: Expected LOS: Initial Reviewer: [email or web address] Initial Review Date: 05/24/2020 Generated: 06/01/20 11:53 am Comments DCP- Discharge Planning Updated by [email or web address]: Jena Pacheco on 06/01/20 9:[address] Patient Name: RENE ZHANG Admission Status: ER Accout number: [id number] Admission Date: 05-24-2020 : 1940 Admission Diagnosis:FRACTURE OF UNSP PART OF NECK OF RIGHT FEMUR, INIT Attending: JULIAN REIS Current LOS: 8 Anticipated DC Date: Planned Disposition: Inpatient Rehab Primary Insurance: MEDICARE A & B Discharge Planning Comments: CM met with patient 's over the phone to complete initial dc planning assessment. CM educated patient on the CM role and verbal consent given by patient to complete assessment. Patient lives at home with his spouse where he was independent with his care. His stated that he has not left his home in the past 7 months. 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 He had not needed any dme at home. She stated he has an ETOH problem and has since she has been to him. He sleeps on the couch at night. She would like for him to go to [facility] inpatient rehab when he is able to. He does not have a PCP, because he does not believe in MD's. She did make the comment that the patient has mentioned the that he has wanted to just . The reports he has been saying that for the past 3 years. I have not spoken with the patient, per NN he is confused and restrained. CM will continue to follow and will assist as needed with dc plans/needs. Traveling Engineer: Jena Pacheco DCPIA - Discharge Planning Initial Assessment Updated by [email or web address]: Jena Pacheco on 06/01/20 10:35 am * Is the patient Alert and Oriented? Yes * How many steps to enter\exit or inside your home? * PCP NONE * Pharmacy [facility] * Preadmission Environment Home with Family * ADLs Independent * Equipment None * List name and contact numbers for known caregivers / representatives who currently or will assist patient after discharge: RIAAN ( ) [phone] * Verbal permission to speak to the caregivers and representatives has been obtained from the patient. N/A * Community resources currently utilized None * Additional services required to return to the preadmission environment? Yes * Can the patient safely return to the preadmission environment? No * Has this patient been hospitalized within the prior 30 days at any hospital? No Last DP export: 06/01/20 9:37 a Patient Name: RENE ZHANG Page [phone] at 1053 All edits/amendments must be made on the electronic document DICTATION DATE: 06/01/20 105 FREEZER UNLOADER: FLOR 06/01/20 1053 RPT#: [id number] DC DATE: STATUS: ADM IN [facility] [address] [place] [address] END OF REPORT
[2020-06-01 12:01] VITALS: BP 108/78
[2020-06-01 12:03] LABS: HEMATOCRIT 28.1 % (42.0-54.0); HEMOGLOBIN 9.1 g/dL (13.5-17.5)
--- NOTE | 2020-06-01 12:30 | NUR ---
ATTEMPTED TO FEED PER STAFF. REFUSED ALL BUT 4 BITES. REFUSED OFFER OF ALTERNATIVE MEAL AND OR AN ENSURE. WILL MONITOR. VERY CONFUSED AT TIMES.
--- NOTE | 2020-06-01 12:37 | NUR ---
Nutrition reassessment/follow-up: Pt receiving a regular diet with 0 po recorded for the last 6 meals Pt is confused and in restraints; 1:1 feeding is required Labs reviewed Procalamine PPN infusing @ 75 ml/hr Wt: 129# 24 hour calorie count Estimated nutrition needs remain the same as original assessment 05/27/20 Pt is now assessed with severe malnutrion of acute illness R/T hip fracture AEB the following criteria: - BMI: 20.3 - < 50% intake of estimated energy needs for > 1 week Recommendations: Pt may benefit from an appetite stimulant 24 hour calorie count ordered Follow-up: 06/02/20
--- NOTE | 2020-06-01 13:30 | NUR ---
FOUND WITH O2 OFF. SAT AT 90% O2 REPLACE AND H2O BOTTLE ADDED. UP TO 96%. CONTINUES CONFUSED TO SITUATION.
--- NOTE | 2020-06-01 15:00 | NUR ---
FOUND WITH O2 OFF AGAIN. SATS AT 90%. O2 REPLACED AND SATSUP TO 95%. WILL MONITOR.
--- NOTE | 2020-06-01 17:39 | NUR ---
OT NOTE: PT DOING BETTER TODAY. PT MORE ALERT AND VERBALLY RESPONSIVE. ABLE TO FOLLOW 75% 1 STEP COMMANDS. PT IS VERY WEAK AND DECONDITIONED. PERFORMED GROOMING TASKS WITH MIN ASSIST TODAY. MAX ASSIST WITH BED MOB AND SUPINE TO SIT. PT WAS ORIENTED X PERSON AND PLACE (HE KNEW THAT HE WAS IN THE HOSPITAL, BUT DID NOT KNOW THE NAME).. JOVITA NASH, OTR/L
--- NOTE | 2020-06-01 17:46 | NUR ---
FOUND WITH CATHETER TORN IN HALF AND OUT. LOTS OF BLOODY DRAINAGE NOTED. LINENS CHANGED AND SKIN CARE PER STAFF. HAQUE REPLACED AFTER ONE STERILE ATTEMPT WITH 18F. WILL MONITOR.
[2020-06-01 18:15] VITALS: BP 158/71
--- NOTE | 2020-06-01 18:25 | NUR ---
ATE ONLY A FEW BITES OF SUPPER. REFUSED MORE AND OFFERS OF ALTERNATIVE. NO NEEDS NOTED. NO CHANGES NOTED.
[2020-06-01 21:36] VITALS: BP 155/74
--- NOTE | 2020-06-01 22:30 | NUR ---
Assumed care of pt after report/rounds. Pt remains confused but, oriented to self and did tell staff how to pronounce last name marifer in room. Pt's barkley remains patent but, there is blood in both the barkley and around the head of the penis from prior self inflicted trauma. IV remains patent and running per order. Pt lying in bed and continues to figet with blanket and gown. Pt safe and restraints assessment completed.
[2020-06-02] VITALS: BP 94/56
--- NOTE | 2020-06-02 04:43 | NUR ---
Pt has remained in bed resting. Pt has not grabbed and pulled on cath anymore. Pt has been sleeping, aside from cares and repositioning, since 99. IV remains running per order and pt remains confused when awake, except to self.
[2020-06-02 05:39] VITALS: BP 102/45
[2020-06-02 07:17] LABS: BASOPHILS 0.4 % (0-2); EOSINOPHILS 3.8 % (0-7); HEMOGLOBIN 8.8 g/dL (13.5-17.5); IMMATURE GRANULOCYTES 0.2 % (0-5); LYMPHOCYTE ABS# 1.01 10x3/uL (1.32-3.57); LYMPHOCYTES 12.1 % (15-50); MCH 30.8 pg (26.0-34.0); MCHC 31.4 g/dL (31.0-37.0); MCV 97.9 fL (80.0-100.0); MEAN PLATELET VOLUME 8.8 fL (7.4-10.4); MONOCYTES 9.8 % (2-11); NEUTROPHIL ABS# 6.13 10x3/uL (1.78-5.38); NEUTROPHILS 73.7 % (40-80); PLATELET COUNT 482 10x3/uL (130-400); RBC 2.86 10x6/uL (4.20-6.10); RDW 13.7 % (11.5-14.5); WBC 8.3 10x3/uL (4.8-10.8)
[2020-06-02 07:32] LABS: ALBUMIN 2.2 g/dL (3.4-5.0); ALKALINE PHOSPHATASE 62 U/L (30-120); ALT (SGPT) 16 U/L (10-68); BILIRUBIN - TOTAL 0.95 mg/dL (0.2-1.3); CALC OSMOLALITY 274 mosm/kg (275-300); CALCIUM 8.6 mg/dL (8.5-10.1); CARBON DIOXIDE 26.6 mmol/L (21.0-32.0); CHLORIDE - SERUM 103 mmol/L (98-107); CREATININE - SERUM 0.9 mg/dL (0.6-1.3); GLUCOSE 97 mg/dL (74-106); POTASSIUM - SERUM 4.2 mmol/L (3.5-5.1); PROTEIN - SERUM 5.8 g/dL (6.4-8.2); SODIUM 136 mmol/L (136-145); eGFR NON AFRICAN AMERICAN 87 mL/min (90-120)
[2020-06-02 07:33] LABS: UREA NITROGEN 21 mg/dL (7-18)
[2020-06-02 08:32] VITALS: BP 102/60
--- NOTE | 2020-06-02 10:03 | NUR ---
ASSISTED PATIENT WITH BREAKFAST AND ADMINISTERING SCHEDULED MEDS. PATIENT WOULD YELL OUT " I DON'T WANT IT" THEN SPIT AT ME. GOT MOST OF MEDICATIONS DOWN PATIENT EXCEPT FOR FLORAJEN AND COLACE. HAQUE IN PLACE, SOFT WRIST RESTRAINTS ON. CONTINUE WITH PLAN OF CARE
--- NOTE | 2020-06-02 12:40 | NUR ---
Nutrition follow-up: Pt visited during breakfast. Pt did not eat anything and was spitting food out at nurse who was assiting pt meal. Pt remains confused per nursing. Labs reviewed ProcalAmine PPN continues @ 75 ml/hr Wt: 130# No BM charted; Colace ordered Cannot complete calorie count due to pt is not eating anything to record. Recommend possible PEG tube placement and TF started due to pts malnutrition with continued poor po intake. RDN follow-up: 06/04/20
[2020-06-02 13:02] VITALS: BP 124/78
--- NOTE | 2020-06-02 13:31 | NUR ---
PATIENT IV IN RT FA IS LEAKING, WHILE REMOVING IV PATIENT BECAME AGITATED AND STARTED TO KICK ME SINCE ARMS ARE RESTRAINED. WHILE RESITING IV IN RT WRIST PATIENT CONTINUED TO YANK ARM MAKING IT DIFFICULT TO RESITE. HAD TO HAVE ANOTHER NURSE ASSIST. IV IN LEFT WRIST/ FA AREA. CONTIUE WITH PLAN OF CARE
--- NOTE | 2020-06-02 14:58 | NUR ---
OT NOTE: PT ALERT BUT MORE CONFUSED AND AGITATED TODAY. REFUSED TO ATTEMPT OR ASSIST WITH ANY ADLS. PT PUSHING THERAPIST HAND AWAY DURING ATTEMPTS TO BRUSH HAIR AND WASH FACE. ATTEMPTED BED MOB BUT REQUIRED MAX ASSIST X 2 SECONDARY TO PT PUSHING BACKWARDS AND RESISTING. PT HAS BEEN DOING MUCH BETTER TODAY WAS NOT GOOD. WILL CONT TO ADDRESS BED MOB AND ADLS. CONT TO RECOMMEND IP REHAB WHEN MEDICALLY STABLE. JOVITA NASH, OTR/L [phone]
--- NOTE | 2020-06-02 15:45 | NUR ---
ASSISTED CONTRACT ANALYST WITH TOTAL BED BATH AND LINEN CHANGE, PATIENT TOLERATED WELL TURNING FROM SIDE TO SIDE. PATIENT DID ATTEMPT TO PULL AT STITCHES ON RIGHT HIP. LARGE BRUISE ON RT SIDE AND BUTOCK AREA THAT IS RAISED. PATIENT SCRATCHED AT IT AND CONTINUED TO DO SO UNTIL WE RESTRAINED HIS HAND AGAIN. PATIENT CONTINUES TO PULL AT LINES AND CATHETER. CONTINUE WITH PLAN OF CARE
[2020-06-02 18:57] VITALS: BP 118/68
--- NOTE | 2020-06-02 19:00 | NUR ---
received report on patient he was confused, in restraints, all needs met.
[2020-06-02 20:00] VITALS: BP 146/85
--- NOTE | 2020-06-02 21:00 | NUR ---
Patient complained of hip pain, prescribed pain medication given, patient did not have anymore complaints of pain.
--- NOTE | 2020-06-03 | NUR ---
Patient was anxious and combative, gave the prescribed Ativan and it appeared to calm him down.
[2020-06-03 04:00] VITALS: BP 117/64
--- NOTE | 2020-06-03 05:30 | NUR ---
Patient was again anxious and combative he was given Ativan and he seemed to calm down. He is currently resting in bed with his eyes closed.
[2020-06-03 06:58] LABS: BASOPHILS 0.3 % (0-2); EOSINOPHILS 6.7 % (0-7); HEMATOCRIT 28.3 % (42.0-54.0); IMMATURE GRANULOCYTES 0.3 % (0-5); LYMPHOCYTES 19.5 % (15-50); MCH 31.1 pg (26.0-34.0); MCHC 31.8 g/dL (31.0-37.0); MCV 97.9 fL (80.0-100.0); MEAN PLATELET VOLUME 8.7 fL (7.4-10.4); MONOCYTES 9.3 % (2-11); NEUTROPHILS 63.9 % (40-80); PLATELET COUNT 512 10x3/uL (130-400); RBC 2.89 10x6/uL (4.20-6.10); RDW 13.7 % (11.5-14.5); WBC 7.2 10x3/uL (4.8-10.8)
[2020-06-03 07:20] LABS: ALBUMIN 2.3 g/dL (3.4-5.0); ALKALINE PHOSPHATASE 67 U/L (30-120); ALT (SGPT) 17 U/L (10-68); BILIRUBIN - TOTAL 0.91 mg/dL (0.2-1.3); CALC OSMOLALITY 273 mosm/kg (275-300); CALCIUM 8.6 mg/dL (8.5-10.1); CARBON DIOXIDE 28.1 mmol/L (21.0-32.0); CHLORIDE - SERUM 104 mmol/L (98-107); CREATININE - SERUM 0.8 mg/dL (0.6-1.3); GLUCOSE 86 mg/dL (74-106); PROTEIN - SERUM 5.2 g/dL (6.4-8.2); SODIUM 136 mmol/L (136-145); UREA NITROGEN 22 mg/dL (7-18); eGFR NON AFRICAN AMERICAN > 90 mL/min (90-120)
[2020-06-03 07:21] LABS: POTASSIUM - SERUM 4.9 mmol/L (3.5-5.1)
[2020-06-03 08:44] VITALS: BP 120/87
--- NOTE | 2020-06-03 08:58 | NUR ---
ADMINISTERED SCHEDULED MEDICATIONS, EASIER TO CRUSH AND MIX WITH APPLESAUCE. PT IV PLACED IN LEFT WRIST YESTERDAY INFILTRATED DUE TO PT RESTLESSNESS IN RESTRAINTS. WILL RESITE. CONTINUE WITH PLAN OF CARE
--- NOTE | 2020-06-03 11:22 | NUR ---
CHANGED PATIENT INTO SCRUB SET SON THOUGHT IT WOUD ASSIST HIM IN NOT PULLING AT CATHETER. RESITE IV TO RT FA, PATIENT TOLERATED WELL, HAD KETTLE CHIPPER IN ROOM HOLDING PATIENT HAND TO ASSIST IN CALMING HIM. CONTINUE WITH PLAN OF CARE
[2020-06-03 12:30] VITALS: BP 95/54
--- NOTE | 2020-06-03 12:56 | NUR ---
ASSISTED PATIENT WTH LUNCH PATIENT ATE 1 SPOONFUL OF MASHED POTATOS A BITE OF ROAST BUT DID NOT WANT ANY MORE AFTERWARDS. CONTINUE WITH PLAN OF CARE
--- NOTE | 2020-06-03 13:58 | NUR ---
Nutrition follow-up: Diet order: regular puree with 1:1 feeding assistance Nurse reports pt only eats a few bites of meals and then refuses to eat any more labs reviewed Wt: 129# ProcalAmine PPN continues @ 75 ml/hr Recommendations: Pt may benefit from an appetite stimulant for short-term to see if appetite improves. If po intake continues to be poor, will need to consider PEG tube placement and nutrition support of TF started. Follow-up: 06/08/20
[2020-06-03 14:30] LABS: BILIRUBIN NEGATIVE (NEGATIVE); KETONE NEGATIVE (NEGATIVE); NITRITE NEGATIVE (NEGATIVE); UROBILINOGEN NORMAL mg/dL (< 2)
--- NOTE | 2020-06-03 15:57 | NUR ---
OT NOTE: PT REMAINS VERY CONFUSED. PT UNABLE TO PERFORM GROOMING, FEEDING, OR DRESSING WITHOUT MAX ASSIST; SUPINE TO SIT WITH MAX ASSIST; EOB SITTING WITH SBA; ATTEMPTED TO STAND 4 TIMES WITH USE OF WALKER AND MAX ASSIST X 2.. PT UNABLE TO STRAIGHTEN KNEES UPON STANDING..UNABLE TO TAKE SIDE STEPS.. DIFFICULTY FOLLOWING ALL COMMANDS. DECREASED ATTN TO TASK JOVITA NASH, OTR/L [phone]
--- NOTE | 2020-06-03 16:19 | NUR ---
OT NOTE: PT REQUIRED MAX A X2 WITH BED MOB TASKS SECONDARY TO CONFUSION. PT COMPLETED SIDE ROLLING, SUPINE TO SIT, AND SIT TO STANDS WITH MOD VERBAL CUES. PT IS CONFUSED AND EXHIBITED DECREASED SAFETY AWARENESS. PT IS NON-COMPLIANT WITH NASAL CANULA. NURSING AWARE. PT REQUIRED EXTRA TIME TO DECREASE ANXIOUSNESS. [phone] OLU BARLOW COTA
--- NOTE | 2020-06-03 16:52 | NUR ---
ATTEMPTED TO FEED PATIENT SOME APPLESAUCE HE TOOK ONE BITE AND THE STARTED TO KICK AT ME. TOLD MR RODRIGUES THAT IS NOT NICE AND HE DID NOT NEED TO KICK. HE THEN ATE TO MORE BITES AND SAID NO MORE. CONTINUE WITH PLAN OF CARE
--- NOTE | 2020-06-03 17:23 | NUR ---
PATIENT IS PULLING AT CATHETER TUBING IN HIS PANTS AND CONTINUES TO TUG. ASKED PATIENT TO STOP PULLING AT TUBING PATIENT STATED " YOU ARE A BITCH" ADMINISTERED PRN GEODON FOR AGITATION. CONTINUE WITH PLAN OF CARE
[2020-06-03 17:24] VITALS: BP 127/73
--- NOTE | 2020-06-03 17:42 | NUR ---
PATIENT TOOK 2 BITES OF TURKEY AND DRESSING 1 SIP OF ENSURE STATED I DON'T WANT THAT. CONTINUE WITH PLAN OF CARE
--- NOTE | 2020-06-03 18:58 | NUR ---
I have reviewed this patient and I concur with the Shift Assessment completed by the Licensed Practical Nurse today this shift.
[2020-06-03 20:00] VITALS: BP 140/88
[2020-06-04] VITALS: BP 117/75
[2020-06-04 04:00] VITALS: BP 118/72
--- NOTE | 2020-06-04 06:39 | NUR ---
at bedside at the beginning of the shift, the wire temperer came and trimmed his toenails. Patient pulled out his IV, multiple nurses attempted to place a new one but did not get it.
[2020-06-04 07:07] LABS: BASOPHILS 0.6 % (0-2); EOSINOPHILS 3.4 % (0-7); HEMATOCRIT 29.7 % (42.0-54.0); HEMOGLOBIN 9.6 g/dL (13.5-17.5); IMMATURE GRANULOCYTES 0.3 % (0-5); LYMPHOCYTE ABS# 0.87 10x3/uL (1.32-3.57); LYMPHOCYTES 9.8 % (15-50); MCH 31.8 pg (26.0-34.0); MCHC 32.3 g/dL (31.0-37.0); MCV 98.3 fL (80.0-100.0); MEAN PLATELET VOLUME 8.7 fL (7.4-10.4); MONOCYTES 8.2 % (2-11); NEUTROPHILS 77.7 % (40-80); PLATELET COUNT 562 10x3/uL (130-400); RBC 3.02 10x6/uL (4.20-6.10); RDW 13.9 % (11.5-14.5); WBC 8.9 10x3/uL (4.8-10.8)
[2020-06-04 07:32] LABS: ALBUMIN 2.5 g/dL (3.4-5.0); ALKALINE PHOSPHATASE 85 U/L (30-120); ALT (SGPT) 17 U/L (10-68); BILIRUBIN - TOTAL 0.91 mg/dL (0.2-1.3); CALC OSMOLALITY 279 mosm/kg (275-300); CALCIUM 8.6 mg/dL (8.5-10.1); CARBON DIOXIDE 24.7 mmol/L (21.0-32.0); CHLORIDE - SERUM 105 mmol/L (98-107); CREATININE - SERUM 0.8 mg/dL (0.6-1.3); GLUCOSE 92 mg/dL (74-106); POTASSIUM - SERUM 4.2 mmol/L (3.5-5.1); PROTEIN - SERUM 6.2 g/dL (6.4-8.2); SODIUM 140 mmol/L (136-145); UREA NITROGEN 16 mg/dL (7-18); eGFR NON AFRICAN AMERICAN > 90 mL/min (90-120)
[2020-06-04 08:31] VITALS: BP 149/86
--- NOTE | 2020-06-04 08:54 | CN ---
PATIENT NAME:RENE ZHANG MEDICAL RECORD: [id number] : 44 LOCATION:D.[facility] [id number] ADMIT DATE: 05/24/20 ACCOUNT: [id number] CONSULTING PHYSICIAN: MARIA FERNANDA BLANKENSHIP MD REFERRING PHYSICIAN: JULIAN REIS MD DATE OF CONSULTATION: 06/03/2020 IDENTIFYING DATA: The patient is 79 years old and he is admitted to the hospital secondary to hip fracture. CHIEF COMPLAINT: Confusion. HISTORY OF PRESENT ILLNESS: The patient is very disorganized and agitated. He is only oriented to person. ASSESSMENT: Delirium. PLAN: The patient will be treated with both scheduled and p.r.n. medications to assist with his agitation. The issues with his agitation may require a transfer to the behavioral unit once he is medically and surgically stabilized. TRANSINT:[id number] Voice Confirmation ID: [id number] DOCUMENT ID: [id number] MARIA FERNANDA BLANKENSHIP MD at 0854 CC: [id number] DICTATION DATE: 06/03/20 1625 RESEARCH AND DEVELOPMENT RESEARCHER: 06/04/20 0041 ADM IN [facility] [address] [id number]
--- NOTE | 2020-06-04 10:34 | NUR ---
ASSISTED PATIENT WITH BREAKFAST. UNTIED LEFT WRIST RESTRAINT FOR 30 MINUTES. PATIENT ATE 2 BITES OF SAUSAGE WITH GRAVY, EGGS AND BISCUITS, 3 BITES ( SMALL) OF APPLESAUCE WITH MEDICATIONS AND ONE SIP OF ENSURE. DRESSINGS CHANGED AND REINFORCED BY ORTHO NURSE OLIMPIA BRUNO. CONTINUE WITH PLAN OF CARE
--- NOTE | 2020-06-04 12:40 | NUR ---
OT NOTE: PT VERY LETHARGIC.. BED MOB WITH MAX ASSIST X 2; EOB SITTING IWTH MAX ASSIST; ATTEMPTED TO STAND WITH MAX ASSIST X 2, HOWEVER, PT UNABLE TO STAND BUT DISCUSSED WITH NURSING WHO REPORTS THAT HE WAS GIVEN GEODON AND THIS IS WHY HES SO LETHARGIC.. NUMEROUS ATTEMPTS TO FEED PT WITHOUT SUCCESS. D/W NURSING.. WILL ATTEMPT IN PM JOVITA NASH, OTR/L [phone]
[2020-06-04] MEDS ORDERED: ELIQUIS2.5 MG PO (13:53)
[2020-06-04] MEDS ORDERED: TESSALON PERLE100 MG PO (13:53)
[2020-06-04] MEDS ORDERED: MUCINEX600 MG PO (13:54)
--- NOTE | 2020-06-04 14:26 | NUR ---
UNABLE TO GET PATIENT TO EAT LUNCH PATIENT CONTIUED TO SAY NO AND SHAKE HIS HEAD AND STATED " I DON'T WANT IT." PATIENT WOULD NOT DRINK EITHER. REPORT GIVEN TO CHAYO IN [facility], PENDING COVID FOR TRANSFER TO THAT UNIT. CONTINUE WITH PLAN OF CARE
--- NOTE | 2020-06-04 14:41 | NUR ---
SPOKE TO CHAYO AND WAS TOLD TO KEEP PATIENT CATHETER WELL IV IN WHEN TAKING PATIENT TO RESIDENTIAL. PATIENT RIANA MORALES
--- NOTE | 2020-06-04 15:06 | NUR ---
CM RECEIVED CALL FROM PATIENT SPOUSE WHO STATED HE WILL NOT GO TO CORRECTION BUT WILL STAY UP HERE UNTIL HE GETS BETTER. CONTINUE WITH PLAN OF CARE
[2020-06-04 16:05] VITALS: BP 102/64
--- NOTE | 2020-06-04 16:38 | NUR ---
OT NOTE: PT VERY CONFUSED AND EXHIBITEDSELF LIMITING BEHAVIORS . PT REQUIRED MAX A FOR FACE HYGIENE. PT REQUIRED MAX A FOR HAND/NAIL HYGIENE. PT WOULD NOT EAT BUT DID TAKE A FEW SIPS OF ENSURE. PT STATED HE DOES NOT WANT TO EAT. [phone] THANK YOU,ALLYSON POTTER
--- NOTE | 2020-06-04 17:02 | MORECARE ---
CASE MANAGEMENT DISCHARGE SUMMARY PATIENT: RENE ZHANG UNIT: [id number] ADM DATE: 05/24/20 AGE: 79 : 42 SEX: M ROOM/BED: D.2202 AUTHOR: LMDOC PHYSICIAN: REFERRING PHYSICIAN: JULIAN REIS MD DATE OF SERVICE: 06/04/20 Discharge Plan Patient Name: RENE ZHANG Facility: [facility]:[place] : 1940 Planned Disposition: Inpatient Rehab Anticipated Discharge Date: Discharge Date: Expected LOS: Initial Reviewer: [email or web address] Initial Review Date: 05/24/2020 Generated: 06/04/20 6:02 pm Comments DCP- Discharge Planning Updated by [email or web address]: Jena Pacheco on 06/04/20 4:[address] PATIENTS CALLED AND STATED THAT HE WILL NOT GO TO THE PSYCH UNIT DCP- Discharge Planning Updated by [email or web address]: Jena Pacheco on 06/01/20 9:[address] Patient Name: RENE ZHANG Admission Status: ER Accout number: [id number] Admission Date: 05-24-2020 : 1940 Admission Diagnosis:FRACTURE OF UNSP PART OF NECK OF RIGHT FEMUR, INIT Attending: JULIAN REIS Current LOS: 8 Anticipated DC Date: Planned Disposition: Inpatient Rehab Primary Insurance: MEDICARE A & B Discharge Planning Comments: CM met with patient 's over the phone to complete initial dc planning assessment. CM educated patient on the CM role and verbal consent given by patient to complete assessment. Patient lives at home with his spouse where he was independent with his care. His stated that he has not left his home in the past 7 months. 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 He had not needed any dme at home. She stated he has an ETOH problem and has since she has been to him. He sleeps on the couch at night. She would like for him to go to [facility] inpatient rehab when he is able to. He does not have a PCP, because he does not believe in MD's. She did make the comment that the patient has mentioned the that he has wanted to just . The reports he has been saying that for the past 3 years. I have not spoken with the patient, per NN he is confused and restrained. CM will continue to follow and will assist as needed with dc plans/needs. Fern Gatherer: Jena Pacheco DCPIA - Discharge Planning Initial Assessment Updated by [email or web address]: Jena Pacheco on 06/01/20 10:35 am * Is the patient Alert and Oriented? Yes * How many steps to enter\exit or inside your home? * PCP NONE * Pharmacy [facility] * Preadmission Environment Home with Family * ADLs Independent * Equipment None * List name and contact numbers for known caregivers / representatives who currently or will assist patient after discharge: RIANA ( ) [phone] * Verbal permission to speak to the caregivers and representatives has been obtained from the patient. N/A * Community resources currently utilized None * Additional services required to return to the preadmission environment? Yes * Can the patient safely return to the preadmission environment? No * Has this patient been hospitalized within the prior 30 days at any hospital? No Coverage Notice Reviewer: [email or web address] - Jena Pacheco Notice Issued Date-Time: 06/01/2020 10:30 Notice Type: Patient Choice Letter Notice Delivered To: Family Member Relationship to Patient: Spouse Carpenter/Labor Name: riana Delivery Method: PHONE - Phone Days: Prior Verbal Notification: Yes Recipient Understood Notice: Recipient Signature: Ricardo Rec Note Co-signed by Attending: Coverage Notice Comment: rey for inpatient rehab at [facility] per at [facility] Last DP export: 06/01/20 9:53 a Patient Name: RENE ZHANG Page [phone] at 1702 All edits/amendments must be made on the electronic document DICTATION DATE: 06/04/201701 SENIOR PRODUCTION MANAGER: FLOR 06/04/201701 RPT#: [id number] DC DATE: STATUS: ADM IN [facility] [address] [place] [address] END OF REPORT
--- NOTE | 2020-06-04 18:07 | NUR ---
PATIENT DAUGHTER AT BEDSIE, PATIENT IS MORE AWAKE THIS EVENING AND RECOGNIZES DAUGHTER AND TALKING WITH HER. PATIENT ATE 3 SPOONFULS OF ROAST AND MASHED POTATOES AND DRANK 2 SIPS OF STRAWBERRY ENSURE. NO NEEDS AT THIS TIME FROM PATIENT. CNTINUE WITH PLAN OF CARE
--- NOTE | 2020-06-04 19:10 | NUR ---
LYING IN BED AWAKE, ALERT, CONFUSED. SOFT WRIST RESTRAINTS IN PLACE. UNABLE TO REORIENT THIS PT. RESP EVEN AND UNLABORED / @4L/NC IN PROGRESS. NO DISTRESS NOTED.
[2020-06-04 20:00] VITALS: BP 125/78
[2020-06-05 04:00] VITALS: BP 179/111
--- NOTE | 2020-06-05 05:14 | NUR ---
LYING IN BED HOLLERING OUT--SOFT WRIST RESTRAINTS IN PLACE--GEODON ADIMINISTERED/ORDER, APRESOLINE GIVEN FOR B/P 179/111. PT TOLERATED ALL WELL. MONITORING CONTINUES.
--- NOTE | 2020-06-05 07:27 | NUR ---
PATIENT RECEIVING FULL BED BATH THIS MORNING AND SCRUBS CHANGED. RESPONDED WHEN I SPOKE TO HIM. TOLD PATIENT I WILL BE BACK TO FEED HIM PATIENT STATED "OK". CONTINUE WITH PLAN OF CARE
--- NOTE | 2020-06-05 08:08 | OP ---
PATIENT NAME: RENE ZHANG MEDICAL RECORD: [id number] :44 LOCATION:D[id number] ADMISSION DATE:05/24/20 SURGEON: JIE RENEE MD DATE OF OPERATION: 05/25/2020 PREOPERATIVE DIAGNOSIS: Right intertrochanteric hip fracture. POSTOPERATIVE DIAGNOSIS: Right intertrochanteric hip fracture. PROCEDURE PERFORMED: Cephalomedullary nailing, right hip. INDICATION FOR THE PROCEDURE: Mr. Zhang is a 79-year-old male who fell this past weekend and injured his right hip. He was seen in the Emergency Department and found to have an intertrochanteric hip fracture. The patient was admitted. Preoperative workup was completed. Arrangements made for him to come to the operating room today for operative repair. Risks, benefits and alternatives of surgery were discussed with the patient and his family and consent was obtained. DESCRIPTION OF THE PROCEDURE: The patient was met in the holding area where his identity and confirmation of procedure was performed. The right lower extremity was marked. He was taken to the operating room where he was placed supine on the operating table and anesthesia was administered. He was then positioned on the [place] table. Extremities were positioned and padded appropriately. The right lower extremity was prepped and draped in a sterile fashion. The patient received preoperative antibiotics and a timeout was performed prior to initiating the case. On initiation of the case, provisional reduction of the hip was performed. We then made an incision in the proximal hip and inserted our guide pin to the starting point at the tip of the greater trochanter. We confirmed its position in both AP and lateral. We then advanced the guide pin. This was overdrilled with our opening reamer. A short gamma nail was then placed and advanced to the appropriate level of the femoral neck. We then made a separate incision for our cephalomedullary screw guide, inserted the guide and advanced our pin center-center in the femoral head. This was measured to a size 95. The guide pin was overdrilled and then our cephalomedullary screw was placed. The proximal locking screw was then placed and backed off a quarter turn. We then placed a distal locking screw through the outrigger device and this completed our fixation. Final images were obtained that showed good alignment and fixation of the intertrochanteric hip fracture. Wounds were irrigated thoroughly with saline. The deep tissues were closed with Vicryl and the skin was closed with jenna. Sterile dressing was placed. The patient was turned back over to anesthesia where he was awakened, extubated, and taken to recovery room in stable condition. POSTOPERATIVE PLAN: The patient is going to be admitted for routine postoperative care. He received 24 hours postoperative antibiotics, be started on DVT prophylaxis tomorrow. Physical therapy will be consulted to assist with mobility. Weightbearing as tolerated, right lower extremity. We will also place rehab placement upon discharge. COMPLICATIONS: None. ESTIMATED BLOOD LOSS: 150 mL. ANESTHESIA: General. OPERATIVE REPORT [id number] RENE ZHANG TRANSINT:[id number] Voice Confirmation ID: [id number] DOCUMENT ID: [id number] JIE RENEE MD at 0808 CC: [id number] DICTATION DATE: 05/25/[address] CREW MEMBER: 05/25/20 [address] [facility] [address] [place] [address]
[2020-06-05 08:33] VITALS: BP 101/61
--- NOTE | 2020-06-05 09:11 | NUR ---
PATIENT MORE AWAKE TODAY, ATE 3 BIG BITES OF SAUSAGE AND GRAZY WELL ONE BITE OF BISCUIT. HE DRANK 2 SIPS OF MILK AND THEN A SIP OF ORANGE JUICE. PATIENT THEN STATED HE WAS DONE. PATIENT ALSO TOOK MEDICATIONS WITH APPLESAUCE. CONTINUE WITH PLAN OF CARE
--- NOTE | 2020-06-05 09:59 | NUR ---
PATIENT SPOUSE CALLED, UPDATED HER ON PATIENT IMPROVEMENT WITH EATING AND RESPONDING TO COMMANDS. SPOUSE WOULD LIKE NURSE PRACTITIONER OR DOCTOR TO CALL. LEFT NUMBER AT DOCTORS DESK
--- NOTE | 2020-06-05 13:11 | NUR ---
Nutrition follow-up: Pt receiving a regular puree diet; requires 1:1 feeding assistance PO intake improved a little today labs reviewed Wt: 129# Will continue to provide food choices and honor food peferences within diet modification restrictions. RDN will order Magic cup with meals Follow-up: 06/09/20
[2020-06-05 14:00] VITALS: BP 92/49
--- NOTE | 2020-06-05 14:20 | NUR ---
OT NOTE: IN AM, PT MORE ALERT TODAY. NURSING FEEDING PT AND ACUTALLY GOT HIM TO EAT SOME BREAKFAST. PT REMAINS CONFUSED BUT NOT AGITATED IN AM. ABLE TO WASH FACE WITH MIN ASSIST; MOD ASSIST TO BRUSH HAIR; ORIENTATION EDUCATION. IN PM, PT PERFORMED MUCH BETTER. BED MOB WITH MAX ASSIST, HOWEVER, ONCE PT WAS POSIITONED AT EOB, HE WAS ABLE TO MAINTAIN STATIC SITTING WITH ONLY OCCASSIONAL ASSIST; SIT TO STAND WITH MAX ASSIST X 2 WITH USE OF WALKER;;PT TOLERATED STANDING X APPROX 1 MIN EACH TIME.. ABLE TO TAKE A FEW SMALL SIDE STEPS WITH MAX X 2 AND MAX ASSIST WITH WALKER MGMT. PT ALSO ABLE TO PERFORM SIT TO SUPINE WITH ONLY MIN ASSIST TODAY. MUCH BETTER PROGRESS TODAY. WAS ABLE TO GET PT TO TAKE APPROX 4 BITES AND SEVERAL SIPS OF WATER WITH EXTENSIVE ENCOURAGEMENT. JOVITA NASH, OTR/L [phone]; [phone]
--- NOTE | 2020-06-05 15:43 | NUR ---
Rehab Note- Continue to follow at this time as he remains in restraints at this time. Thank you for this referral! Karina Decker RN Clinical Liaison, [facility] Rehab
[2020-06-05 17:07] VITALS: BP 105/66
--- NOTE | 2020-06-05 17:49 | NUR ---
PT PULLED PUT RIGHT AC PIV WITH CATHETER TIP INTACT. IV SITE WITHOUT BLEEDING AT THIS TIME. PT REFUSES PIV RESITE AND REFUSES TO ALLOW NURSE TO REMOVE PIV ADHEVSIVE TAPES. PT IS PLEASANT AND STATES HE "JUST DOESN'T WANT THAT RIGHT NOW". FALL PRECUATIONS IN PLACE. BED IS IN THE LOWEST POSITION. CALL LIGHT AND BEDSIDE TABLE ARE WITHIN REACH. SIDE RAILS X 2. WILL CONT TO MONITOR.
--- NOTE | 2020-06-05 20:15 | NUR ---
PATIENT CONFUSED PULLING CATH AND TELEMENTRY. IV WAS PULLED OUT ON PREVIOUS SHIFT.INCONTINENT OF BOWEL. AUGUSTO CARE AND LINEN CHANGE GIVEN. PATIENT FIGHTING AGAINST STAFF WHEN ATTEMPTING TO CLEAN AND REPLACE TELEMENTRY. GEODON 10MG GIVEN IM TO LLG. STAT LOCK REPLACED.HAQUE PATENT AND DRAINING.FALL PRECAUTIONS IN PLACE.
[2020-06-05 20:21] VITALS: BP 143/71
--- NOTE | 2020-06-05 21:00 | NUR ---
PATIENT LYING QUEITLY WITH EYES CLOSED. RESP EVEN AND UNLABORED. NO DISTRESS NOTED. CL IN REACH
[2020-06-06 00:22] VITALS: BP 118/70
--- NOTE | 2020-06-06 03:00 | NUR ---
I have reviewed this patient and I concur with the Shift Assessment completed by the Licensed Practical Nurse today this shift.
--- NOTE | 2020-06-06 03:04 | NUR ---
IV RESTITED TO RIGHT WRIST PER ANDERSON ABEBE. TOLERATED WELL.
[2020-06-06 05:26] VITALS: BP 102/60
[2020-06-06 05:53] LABS: BASOPHILS 0.5 % (0-2); EOSINOPHILS 4.2 % (0-7); HEMOGLOBIN 9.5 g/dL (13.5-17.5); IMMATURE GRANULOCYTES 0.3 % (0-5); LYMPHOCYTE ABS# 1.16 10x3/uL (1.32-3.57); LYMPHOCYTES 12.1 % (15-50); MCHC 31.7 g/dL (31.0-37.0); MONOCYTES 8.7 % (2-11); NEUTROPHIL ABS# 7.13 10x3/uL (1.78-5.38); NEUTROPHILS 74.2 % (40-80); PLATELET COUNT 593 10x3/uL (130-400); RBC 3.06 10x6/uL (4.20-6.10); RDW 14.1 % (11.5-14.5); WBC 9.6 10x3/uL (4.8-10.8)
[2020-06-06 06:45] LABS: ALBUMIN 2.5 g/dL (3.4-5.0); ALKALINE PHOSPHATASE 109 U/L (30-120); BILIRUBIN - TOTAL 0.85 mg/dL (0.2-1.3); CALC OSMOLALITY 277 mosm/kg (275-300); CALCIUM 8.8 mg/dL (8.5-10.1); CARBON DIOXIDE 23.2 mmol/L (21.0-32.0); CHLORIDE - SERUM 106 mmol/L (98-107); CREATININE - SERUM 0.8 mg/dL (0.6-1.3); GLUCOSE 96 mg/dL (74-106); POTASSIUM - SERUM 4.3 mmol/L (3.5-5.1); PROTEIN - SERUM 6.1 g/dL (6.4-8.2); SODIUM 138 mmol/L (136-145); UREA NITROGEN 17 mg/dL (7-18); eGFR NON AFRICAN AMERICAN > 90 mL/min (90-120)
[2020-06-06 06:48] LABS: ALT (SGPT) 28 U/L (10-68)
[2020-06-06 08:10] VITALS: BP 105/64
--- NOTE | 2020-06-06 09:47 | NUR ---
PT ALERT AND CONFUSED, ATE 5% OF BREAKFAST WITH NO INTEREST IN CONTINUEING TO EAT. WAS ABLE TO TAKE TWO BITES OF APPLESAUCE WITH PILLS BEFORE REFUSING. PICKED WHOLE PILLS OUT OF MOUTH AND AND PUT THEM IN THE BED. WOULD RECCOMEND CRUSHING FROM THIS POINT ON. CHANGED LINNENS AND CLEANED SMALL BM. CL IN REACH, SRX2, BED ALARM ON AND ACTIVE, IV AND HAQUE CATHETER INTACT AT THIS TIME.
--- NOTE | 2020-06-06 10:39 | NUR ---
PT AWAKE AND CONFUSED, PULLED OT RIGHT WRIST I/V. CLEANED, TIP INTACT.
[2020-06-06 11:59] VITALS: BP 128/56
--- NOTE | 2020-06-06 12:09 | NUR ---
PT PULLED HAQUE CATHETER PARTIALLY OUT. REMOVED HAQUE PER STERILE NURSING PROTOCOL. PER DR. VIVAR PT DOES NOT NEED ANOTHER I/V PLACEMENT AT THIS TIME D/T REPEATEDLY PULLING THE I/VS OUT. CL IN REACH, SRX2.
--- NOTE | 2020-06-06 13:54 | NUR ---
I have reviewed this patient and I concur with the Shift Assessment completed by the Licensed Practical Nurse today this shift.
[2020-06-06 17:21] VITALS: BP 139/75
--- NOTE | 2020-06-06 17:25 | NUR ---
PT HAS HAD TWO EPISODES OF HAVING A B.M AND THEN PROCEDING TO PLAY IN IT.
--- NOTE | 2020-06-06 18:00 | NUR ---
SON AT BEDSIDE.
--- NOTE | 2020-06-06 20:00 | NUR ---
AWAKE,ALERT.REMAINS CONFUSED. RESP UNLABORED. NO DISTRESS NOTED. INCONTINENT OF BM. AUGUSTO CARE GIVEN AND BED PADS CHANGED. FALL PRECAUTIONS IN PLACE. CL IN REACH
[2020-06-06 21:51] VITALS: BP 145/68
[2020-06-07 01:18] VITALS: BP 123/86
--- NOTE | 2020-06-07 04:10 | NUR ---
I have reviewed this patient and I concur with the Shift Assessment completed by the Licensed Practical Nurse today this shift.
[2020-06-07 04:27] LABS: BASOPHILS 0.2 % (0-2); EOSINOPHILS 1.3 % (0-7); HEMATOCRIT 33.4 % (42.0-54.0); IMMATURE GRANULOCYTES 0.2 % (0-5); LYMPHOCYTES 7.9 % (15-50); MCH 31.7 pg (26.0-34.0); MCHC 32.9 g/dL (31.0-37.0); MCV 96.3 fL (80.0-100.0); MEAN PLATELET VOLUME 8.7 fL (7.4-10.4); MONOCYTES 9.5 % (2-11); NEUTROPHIL ABS# 10.28 10x3/uL (1.78-5.38); NEUTROPHILS 80.9 % (40-80); PLATELET COUNT 688 10x3/uL (130-400); RBC 3.47 10x6/uL (4.20-6.10); RDW 13.8 % (11.5-14.5)
[2020-06-07 04:36] LABS: WBC 12.7 10x3/uL (4.8-10.8)
[2020-06-07 04:50] LABS: ALKALINE PHOSPHATASE 128 U/L (30-120); ALT (SGPT) 31 U/L (10-68); BILIRUBIN - TOTAL 1.22 mg/dL (0.2-1.3); CALC OSMOLALITY 273 mosm/kg (275-300); CALCIUM 9.1 mg/dL (8.5-10.1); CARBON DIOXIDE 22.4 mmol/L (21.0-32.0); CHLORIDE - SERUM 103 mmol/L (98-107); CREATININE - SERUM 0.9 mg/dL (0.6-1.3); GLUCOSE 98 mg/dL (74-106); POTASSIUM - SERUM 4.2 mmol/L (3.5-5.1); PROTEIN - SERUM 6.8 g/dL (6.4-8.2); SODIUM 136 mmol/L (136-145); UREA NITROGEN 19 mg/dL (7-18); eGFR NON AFRICAN AMERICAN 87 mL/min (90-120)
[2020-06-07 05:56] VITALS: BP 148/87
--- NOTE | 2020-06-07 07:21 | NUR ---
RESTING IN BED WITH EYES OPEN, EYES OPEN, CLOTHES OFF ROLLING AROUND. ALERT, BUT CONFUSED. NO IV ACCESS. DENIES NEEDS AT THIS TIME, WILL CONT TO MONITOR.
--- NOTE | 2020-06-07 08:00 | NUR ---
TOOK 3 BITES OF HIS BREAKFAST AND REFUSED TO EAT ANYMORE.
[2020-06-07 08:39] VITALS: BP 105/74
--- NOTE | 2020-06-07 12:33 | NUR ---
TOOK ONE BITE OF HIS LUNCH AND REFUSES ANYTHING ELSE.
[2020-06-07 13:31] VITALS: BP 118/61
--- NOTE | 2020-06-07 16:00 | NUR ---
EKG DONE, SCANNED AND PUT IN THE CHART. TELEMETRY ON. WILL CONT TO MONITOR.
[2020-06-07 17:06] VITALS: BP 130/76
--- NOTE | 2020-06-07 20:00 | NUR ---
LYING QUEITLY WITH NO DISTRESS NOTED. CONTINUES TO HAVE CONFUSION NOTED.TURNED AND POSITIONED FOR COMFORT. CL IN REACH
[2020-06-07 20:51] VITALS: BP 101/60
--- NOTE | 2020-06-08 05:49 | NUR ---
I have reviewed this patient and I concur with the Shift Assessment completed by the Licensed Practical Nurse today this shift.
[2020-06-08 06:33] LABS: BASOPHILS 0.7 % (0-2); EOSINOPHILS 3.7 % (0-7); HEMATOCRIT 34.3 % (42.0-54.0); HEMOGLOBIN 11.1 g/dL (13.5-17.5); IMMATURE GRANULOCYTES 0.4 % (0-5); LYMPHOCYTE ABS# 0.91 10x3/uL (1.32-3.57); LYMPHOCYTES 10.9 % (15-50); MCH 31.9 pg (26.0-34.0); MCHC 32.4 g/dL (31.0-37.0); NEUTROPHIL ABS# 6.03 10x3/uL (1.78-5.38); NEUTROPHILS 72.3 % (40-80); PLATELET COUNT 647 10x3/uL (130-400); RBC 3.48 10x6/uL (4.20-6.10); RDW 14.1 % (11.5-14.5)
[2020-06-08 06:36] VITALS: BP 109/70
[2020-06-08 06:40] LABS: MCV 98.6 fL (80.0-100.0); WBC 8.3 10x3/uL (4.8-10.8)
[2020-06-08 06:50] LABS: ALBUMIN 2.9 g/dL (3.4-5.0); ALKALINE PHOSPHATASE 124 U/L (30-120); ALT (SGPT) 29 U/L (10-68); BILIRUBIN - TOTAL 1.12 mg/dL (0.2-1.3); CALC OSMOLALITY 279 mosm/kg (275-300); CARBON DIOXIDE 23.1 mmol/L (21.0-32.0); CHLORIDE - SERUM 105 mmol/L (98-107); GLUCOSE 94 mg/dL (74-106); POTASSIUM - SERUM 4.1 mmol/L (3.5-5.1); PROTEIN - SERUM 6.7 g/dL (6.4-8.2); SODIUM 138 mmol/L (136-145); eGFR NON AFRICAN AMERICAN 77 mL/min (90-120)
[2020-06-08 06:52] LABS: UREA NITROGEN 24 mg/dL (7-18)
--- NOTE | 2020-06-08 07:49 | NUR ---
PT LAYING ON RIGHT SIDE. GARBLED SPEECH. TELE AT [address] CL IN REACH. BED ALARM ON. [facility]
[2020-06-08 08:34] VITALS: BP 107/64
[2020-06-08 11:49] VITALS: BP 95/54
--- NOTE | 2020-06-08 15:08 | NUR ---
Nutrition follow-up: Diet order: Regular puree with 1:1 feeding assistance required PO intake continues to be poor with pt refusing meals and/or etaing just one or two small bites and then refusing more. Labs reviewed Wt: 129# +BM RDN still recommends PEG tube placement for nutrition support. RDN follow-up: 06/12/20
--- NOTE | 2020-06-08 15:20 | NUR ---
OT NOTE: PT COMPLETED ELECTRIC SHAVE WITH MAX A. PT COMPLETED ORAL HYGIENE WITH MAX A. PT COMPLETED UB/LB BATHING TASKS WITH MAX A. PT REQUIRED MAX A FOR BED MOBILITY AND POSITIONING. [phone] THANK YOU,ALLYSON POTTER
[2020-06-08 15:55] VITALS: BP 107/82
[2020-06-08 19:22] VITALS: BP 102/60
[2020-06-09 04:00] VITALS: BP 116/75
[2020-06-09 06:38] LABS: ANION GAP 12.5 mmol/L (8-16); BILIRUBIN - TOTAL 0.95 mg/dL (0.2-1.3); CALCIUM 8.9 mg/dL (8.5-10.1); CARBON DIOXIDE 24.6 mmol/L (21.0-32.0); POTASSIUM - SERUM 4.1 mmol/L (3.5-5.1); PROTEIN - SERUM 6.8 g/dL (6.4-8.2)
[2020-06-09 06:42] LABS: CREATININE - SERUM 1.3 mg/dL (0.6-1.3)
[2020-06-09 06:45] LABS: BASOPHILS 0.4 % (0-2); EOSINOPHILS 1.4 % (0-7); HEMATOCRIT 34.4 % (42.0-54.0); IMMATURE GRANULOCYTES 0.3 % (0-5); LYMPHOCYTE ABS# 1.04 10x3/uL (1.32-3.57); LYMPHOCYTES 9.9 % (15-50); MCH 31.7 pg (26.0-34.0); MCV 99.1 fL (80.0-100.0); MEAN PLATELET VOLUME 8.9 fL (7.4-10.4); MONOCYTES 8.9 % (2-11); NEUTROPHIL ABS# 8.34 10x3/uL (1.78-5.38); NEUTROPHILS 79.1 % (40-80); PLATELET COUNT 650 10x3/uL (130-400); RBC 3.47 10x6/uL (4.20-6.10); RDW 14.1 % (11.5-14.5)
[2020-06-09 06:48] LABS: WBC 10.5 10x3/uL (4.8-10.8)
--- NOTE | 2020-06-09 07:07 | NUR ---
PT SLEEPING AT THSI TIME. BED ALARM ON. PM SHIFT REPORTED PT HAD A BM. CL IN REACH. BED ALARM ON. WCTM
[2020-06-09 08:01] LABS: BACTERIA FEW HPF (NONE SEEN); BILIRUBIN NEGATIVE (NEGATIVE); KETONE SMALL mg/dL (NEGATIVE); NITRITE NEGATIVE (NEGATIVE); SQUAMOUS EPITHELIAL RARE HPF (0-4); WHITE CELLS - URINE OCC HPF (0-1)
[2020-06-09 10:39] VITALS: BP 100/64
[2020-06-09 14:14] VITALS: BP 99/62
--- NOTE | 2020-06-09 15:24 | NUR ---
OT NOTE (AM): PT PERFORMED VERY WELL THIS AM. ABLE TO PERFORM BED MOB INCLUDING SUPINE TO SIT WITH MIN/MOD ASSIST; SIT TO STAND WITH WALKER AND MIN/MOD ASSIST X 2; ABLE TO TAKE SEVERAL STEPS WITH USE OF WALKER; PT WITH INCREASED VERBALIZATION TODAY. LESS CONFUSION; IMPROVED COOPERATION..PT ABLE TO DRINK ENTIRE CONTAINER OF ENSURE WITH ONLY VERBAL CUES; ABLE TO FEED SELF 3 BITES OF FOOD. ABLE TO WASH FACE, HANDS, AND CHEST WITH VERBAL CUES AND MIN ASSIST. PT WAS ABLE TO CLEAN AND PUT IN DENTURES TODAY ASLO...[phone] (PM): PT SEEN IN PM; PT INFORMED NURSING THAT HE HAD TO HAVE A BM.. LOCATED BS COMMODE; PT DID NOT DO WELL IN PM. REQUIRED MAX ASSIST X 2 FOR STANDING AND TRANSFER TO BS COMMODE; PT WAS UNABLE TO HAVE A BM OR URINATE; MAX ASSIST FOR PERINEAL CARE AND CLEANING HANDS; MAX ASSIST TO TRANSFER BACK TO BED AND REPOSITION IN BED. JOVITA NASH, OTR/L
--- NOTE | 2020-06-09 16:46 | NUR ---
OT NOTE: PT REQUIRED MOD A FOR BED TO [facility] TSF. PT COMPLETED TOILETING TASKS WITH SBA. PT REQUIRED MAX A FOR HYGIENE. PT IS CONFUSED AND REQUIRED EXTENSIVE CUES. [phone] THANK YOU,ALLYSON POTTER
[2020-06-09 18:28] VITALS: BP 111/53
[2020-06-09 20:00] VITALS: BP 115/62
--- NOTE | 2020-06-09 20:51 | NUR ---
REC'D IN BED BED ARMED SON AT BEDSIDE PATIENT REMAINS CONFUSED AND DISORIENTED TO PLACE TIME SITUATION.PULLED MONITOR OFF AGAIN NEW ELECTRODES APPLIED AND CARBON PAPER COATING MACHINE SETTER CALLED FOR PT, CURRENT HEART READING AND RATE.
[2020-06-10] VITALS: BP 126/79
[2020-06-10 04:00] VITALS: BP 122/73
--- NOTE | 2020-06-10 05:51 | NUR ---
I have reviewed this patient and I concur with the Shift Assessment completed by the Licensed Practical Nurse today this shift.
[2020-06-10 06:19] LABS: BASOPHILS 0.5 % (0-2); EOSINOPHILS 2.3 % (0-7); HEMATOCRIT 34.6 % (42.0-54.0); HEMOGLOBIN 11.5 g/dL (13.5-17.5); IMMATURE GRANULOCYTES 0.1 % (0-5); LYMPHOCYTE ABS# 1.15 10x3/uL (1.32-3.57); LYMPHOCYTES 15.4 % (15-50); MCH 32.2 pg (26.0-34.0); MCHC 33.2 g/dL (31.0-37.0); MEAN PLATELET VOLUME 9.1 fL (7.4-10.4); MONOCYTES 11.1 % (2-11); NEUTROPHIL ABS# 5.28 10x3/uL (1.78-5.38); NEUTROPHILS 70.6 % (40-80); PLATELET COUNT 627 10x3/uL (130-400); RBC 3.57 10x6/uL (4.20-6.10); RDW 13.9 % (11.5-14.5)
[2020-06-10 06:21] LABS: MCV 96.9 fL (80.0-100.0); WBC 7.5 10x3/uL (4.8-10.8)
[2020-06-10 06:31] LABS: ALBUMIN 3.2 g/dL (3.4-5.0); ALKALINE PHOSPHATASE 127 U/L (30-120); ALT (SGPT) 27 U/L (10-68); BILIRUBIN - TOTAL 1.01 mg/dL (0.2-1.3); CALC OSMOLALITY 288 mosm/kg (275-300); CALCIUM 8.8 mg/dL (8.5-10.1); CARBON DIOXIDE 24.3 mmol/L (21.0-32.0); CHLORIDE - SERUM 107 mmol/L (98-107); POTASSIUM - SERUM 4.2 mmol/L (3.5-5.1); PROTEIN - SERUM 6.4 g/dL (6.4-8.2); SODIUM 142 mmol/L (136-145); UREA NITROGEN 32 mg/dL (7-18); eGFR NON AFRICAN AMERICAN 77 mL/min (90-120)
[2020-06-10 06:35] LABS: GLUCOSE 87 mg/dL (74-106)
[2020-06-10 09:28] VITALS: BP 117/71
[2020-06-10 12:31] VITALS: BP 100/63
--- NOTE | 2020-06-10 15:32 | NUR ---
OT NOTE: PT REQUIRED TOTAL A FOR NAIL HYGIENE. PT REQUIRED TOTAL A FOR SELF FEEDING TASKS FOR INCREASED SAFETY. PT COMPLETED UB HYGIENE WITH MAX A. PT COMPLETED BED MOB TASKS WITH MAX A. PT REQUIRED EXTENSIVE VERBAL CUES. PT IS EASILY FUSTRATED. PT EXHIBITED POOR SAFETY AWARENESS. [phone] OLU BARLOW COTA
[2020-06-10 16:56] VITALS: BP 107/64
[2020-06-10 20:00] VITALS: BP 133/74
[2020-06-11] VITALS: BP 114/74
[2020-06-11 04:00] VITALS: BP 128/79
[2020-06-11 06:20] LABS: BASOPHILS 0.6 % (0-2); EOSINOPHILS 1.8 % (0-7); HEMATOCRIT 38.4 % (42.0-54.0); IMMATURE GRANULOCYTES 0.4 % (0-5); LYMPHOCYTE ABS# 1.19 10x3/uL (1.32-3.57); LYMPHOCYTES 14.9 % (15-50); MCHC 31.3 g/dL (31.0-37.0); MEAN PLATELET VOLUME 9.9 fL (7.4-10.4); MONOCYTES 8.5 % (2-11); NEUTROPHIL ABS# 5.87 10x3/uL (1.78-5.38); NEUTROPHILS 73.8 % (40-80); RBC 3.75 10x6/uL (4.20-6.10); RDW 14.4 % (11.5-14.5)
[2020-06-11 06:25] LABS: MCV 102.4 fL (80.0-100.0); PLATELET COUNT 492 10x3/uL (130-400)
[2020-06-11 07:51] VITALS: BP 154/72
[2020-06-11 08:25] LABS: ALBUMIN 3.2 g/dL (3.4-5.0); ALKALINE PHOSPHATASE 127 U/L (30-120); ALT (SGPT) 31 U/L (10-68); BILIRUBIN - TOTAL 0.94 mg/dL (0.2-1.3); CALC OSMOLALITY 289 mosm/kg (275-300); CALCIUM 9.1 mg/dL (8.5-10.1); CARBON DIOXIDE 26.2 mmol/L (21.0-32.0); CHLORIDE - SERUM 108 mmol/L (98-107); GLUCOSE 104 mg/dL (74-106); PROTEIN - SERUM 6.3 g/dL (6.4-8.2); SODIUM 142 mmol/L (136-145); UREA NITROGEN 31 mg/dL (7-18); eGFR NON AFRICAN AMERICAN 77 mL/min (90-120)
--- NOTE | 2020-06-11 09:00 | NUR ---
ALERT WITH CONFUSION NOTED.TELEMETRY INTACT WITH FALL PRECAUTIONS IN PLACE. INCONT OF BLADDER AT TIMES. PERICARE DONE WITH EACH INCONT. EPISODE. ENCOURAGED TO USE CALL LIGHT FOR ASSSIT.
[2020-06-11 11:05] VITALS: BP 100/69
--- NOTE | 2020-06-11 13:03 | MORECARE ---
CASE MANAGEMENT DISCHARGE SUMMARY PATIENT: RENE ZHANG UNIT: [id number] ADM DATE: 05/24/20 AGE: 79 : 42 SEX: M ROOM/BED: D.2202 AUTHOR: BRITTNI AMATO PHYSICIAN: REFERRING PHYSICIAN: JULIAN REIS MD DATE OF SERVICE: 06/11/20 Discharge Plan Patient Name: RENE ZHANG Facility: [facility]:[place] : 1940 Planned Disposition: Inpatient Rehab Anticipated Discharge Date: Discharge Date: Expected LOS: Initial Reviewer: [email or web address] Initial Review Date: 05/24/2020 Generated: 06/11/20 2:02 pm Comments DCP- Discharge Planning Updated by [email or web address]: Jena Pacheco on 06/11/20 12:[address] attempted to call patient's about her [facility] to see if this would be ok to send the referral [facility] is not going to accept him at this time. CM will tray again later at this time. DCP- Discharge Planning Updated by [email or web address]: Jena Pacheco on 06/04/20 4:[address] PATIENTS CALLED AND STATED THAT HE WILL NOT GO TO THE PSYCH UNIT DCP- Discharge Planning Updated by [email or web address]: Jena Pacheco on 06/01/20 9:[address] Patient Name: RENE ZHANG Admission Status: ER Accout number: [id number] Admission Date: 05-24-2020 : 1940 Admission Diagnosis:FRACTURE OF UNSP PART OF NECK OF RIGHT FEMUR, INIT Attending: JULIAN REIS Current LOS: 8 Anticipated DC Date: Planned Disposition: Inpatient Rehab Primary Insurance: MEDICARE A & B Discharge Planning Comments: CM met with patient 's over the phone to complete initial dc planning assessment. CM educated patient on the CM role and verbal consent given by patient to complete assessment. Patient lives at home with his spouse where he was independent with his care. His stated that he has not left his home in the past 7 months. 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 He had not needed any dme at home. She stated he has an ETOH problem and has since she has been to him. He sleeps on the couch at night. She would like for him to go to [facility] inpatient rehab when he is able to. He does not have a PCP, because he does not believe in MD's. She did make the comment that the patient has mentioned the that he has wanted to just . The reports he has been saying that for the past 3 years. I have not spoken with the patient, per NN he is confused and restrained. CM will continue to follow and will assist as needed with dc plans/needs. Bankruptcy Law Specialist: Jena Pacheco DCPIA - Discharge Planning Initial Assessment Updated by [email or web address]: Jena Pacheco on 06/01/20 10:35 am * Is the patient Alert and Oriented? Yes * How many steps to enter\exit or inside your home? * PCP NONE * Pharmacy [facility] * Preadmission Environment Home with Family * ADLs Independent * Equipment None * List name and contact numbers for known caregivers / representatives who currently or will assist patient after discharge: RIANA ( ) [phone] * Verbal permission to speak to the caregivers and representatives has been obtained from the patient. N/A * Community resources currently utilized None * Additional services required to return to the preadmission environment? Yes * Can the patient safely return to the preadmission environment? No * Has this patient been hospitalized within the prior 30 days at any hospital? No Coverage Notice Reviewer: [email or web address] - Jena Pacheco Notice Issued Date-Time: 06/01/2020 10:30 Notice Type: Patient Choice Letter Notice Delivered To: Family Member Relationship to Patient: Spouse Elementary Principal Name: riana Delivery Method: PHONE - Phone Days: Prior Verbal Notification: Yes Recipient Understood Notice: Recipient Signature: Med Rec Note Co-signed by Attending: Coverage Notice Comment: rey for inpatient rehab at [facility] per at [facility] Last DP export: 06/04/20 4:02 p Patient Name: RENE ZHANG Page 28534 at 1303 All edits/amendments must be made on the electronic document DICTATION DATE: 06/11/20 1302 ETHNIC ORIGINS TEACHER: FLOR 06/11/20 1302 RPT#: [id number] DC DATE: STATUS: ADM IN [facility] [address] [facility] [place] [address] END OF REPORT
--- NOTE | 2020-06-11 15:55 | NUR ---
OT NOTE: PT REQUIRED EXTENSIVE VERBAL CUES SECONDARY TO CONFUSION. PT IS EASILY ANGERED WITH SIMPLE TASKS. PT REQUIRED MOD A FOR ORAL HYGIENE WITH TOOTHETTE. PT REQUIRED MIN A FOR FACE HYGIENE. PT REQUIRED EXTRA TIME WITH ALL TASKS. PT REQUIRED MAX A FOR POSITIONING AND BED MOB. [phone] THANK YOU,ALLYSON POTTER
[2020-06-11 16:48] VITALS: BP 95/51
[2020-06-11 20:00] VITALS: BP 101/59
[2020-06-12] VITALS: BP 91/47
--- NOTE | 2020-06-12 01:10 | NUR ---
ASSESSED AT THE BEGINNING OF THE SHIFT. PT IS ALERT AND SOME WHAT CONFUSED. HE IS ABLE TO REQUEST HIS NEEDS BUT IS NOTED A FEEDER. HE WAS ASSITED UP TO BEDSIDE COMMODE TO HAVE A BM AND VOID. HE HAD VERY LITTLE LOOSE BM AND VOIDED. THERE ARE STERI STRIPS IN PLACE TO HIS INCISION AND NO DRAINAGE NOTED. TELEMETRY SHOWED SR 90"S. FAMILY HAD BROUGHT HIM CANDY AND IT WAS OPENED UP WHERE HE COULD SEE WHAT HE HAD. HE DID NOT WANT ANY OF IT SO IT WAS LEFT SEALED IN THE INDIVIDUAL WRAPPERS. WATER WAS OFFERED WHEN IN ROOM.
[2020-06-12 07:42] LABS: ALBUMIN 3.2 g/dL (3.4-5.0); ALKALINE PHOSPHATASE 122 U/L (30-120); ALT (SGPT) 28 U/L (10-68); BILIRUBIN - TOTAL 0.84 mg/dL (0.2-1.3); CALC OSMOLALITY 289 mosm/kg (275-300); CALCIUM 9.3 mg/dL (8.5-10.1); CARBON DIOXIDE 24.7 mmol/L (21.0-32.0); CHLORIDE - SERUM 107 mmol/L (98-107); CREATININE - SERUM 0.9 mg/dL (0.6-1.3); GLUCOSE 101 mg/dL (74-106); POTASSIUM - SERUM 4.4 mmol/L (3.5-5.1); PROTEIN - SERUM 6.4 g/dL (6.4-8.2); SODIUM 141 mmol/L (136-145); eGFR NON AFRICAN AMERICAN 87 mL/min (90-120)
[2020-06-12 07:43] LABS: UREA NITROGEN 39 mg/dL (7-18)
[2020-06-12 07:44] VITALS: BP 93/55
[2020-06-12 07:49] LABS: BASOPHILS 0.4 % (0-2); EOSINOPHILS 3.5 % (0-7); HEMATOCRIT 35.3 % (42.0-54.0); HEMOGLOBIN 11.3 g/dL (13.5-17.5); IMMATURE GRANULOCYTES 0.1 % (0-5); LYMPHOCYTE ABS# 1.33 10x3/uL (1.32-3.57); LYMPHOCYTES 19.6 % (15-50); MCH 31.7 pg (26.0-34.0); MEAN PLATELET VOLUME 9.2 fL (7.4-10.4); MONOCYTES 9.5 % (2-11); NEUTROPHIL ABS# 4.52 10x3/uL (1.78-5.38); NEUTROPHILS 66.9 % (40-80); RBC 3.57 10x6/uL (4.20-6.10); RDW 14.1 % (11.5-14.5); WBC 6.8 10x3/uL (4.8-10.8)
[2020-06-12 07:50] LABS: MCV 98.9 fL (80.0-100.0); PLATELET COUNT 637 10x3/uL (130-400)
[2020-06-12 11:29] VITALS: BP 83/44; BP 92/60
--- NOTE | 2020-06-12 12:18 | MORECARE ---
CASE MANAGEMENT DISCHARGE SUMMARY PATIENT: RENE ZHANG UNIT: [id number] ADM DATE: 05/24/20 AGE: 79 : 42 SEX: M ROOM/BED: D.2202 AUTHOR: LMDOC PHYSICIAN: REFERRING PHYSICIAN: JULIAN REIS MD DATE OF SERVICE: 06/12/20 Discharge Plan Patient Name: RENE ZHANG Facility: [facility]:[place] : 1940 Planned Disposition: Inpatient Rehab Anticipated Discharge Date: Discharge Date: Expected LOS: Initial Reviewer: [email or web address] Initial Review Date: 05/24/2020 Generated: 06/12/20 1:17 pm Comments DCP- Discharge Planning Updated by [email or web address]: Jena Pacheco on 06/12/20 11:[address] SPOKE TO PATIENTS ABOUT [facility]FERR[facility] AND SHE IS AGREEABLE TO THAT, I ALSO EXPLAINED TO HER THAT IF THEY DID NOT ACCPET HIM THAT SHE WOULD NEED TO GET WITH HER KIDS AND PICK A SKILLED FACILITY FOR A REFERRAL TO BE SENT TO . CM WILL SEND A REFERRAL TO [facility] IN[facility]IENT [facility] DCP- Discharge Planning Updated by [email or web address]: Jena Pacheco on 06/11/20 12:[address] attempted to call patient's about her [facility] to see if this would be ok to send the referral [facility] is not going to accept him at this time. CM will tray again later at this time. DCP- Discharge Planning Updated by [email or web address]: Jena Pacheco on 06/04/20 4:[address] PATIENTS CALLED AND STATED THAT HE WILL NOT GO TO THE PSYCH UNIT DCP- Discharge Planning Updated by [email or web address]: Jena Pacheco on 06/01/20 9:[address] Patient Name: RENE ZHANG Admission Status: ER Accout number: [id number] Admission Date: 05-24-2020 : 1940 Admission Diagnosis:FRACTURE OF UNSP PART OF NECK OF RIGHT FEMUR, INIT Attending: JULIAN REIS Current LOS: 8 Anticipated DC Date: Planned Disposition: Inpatient Rehab Primary Insurance: MEDICARE A & B Discharge Planning Comments: CM met with patient 's over the phone to complete initial dc planning assessment. CM educated patient on the CM role and verbal consent given by patient to complete assessment. Patient lives at home with his spouse where he was independent with his care. His stated that he has not left his home in the past 7 months. 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 He had not needed any dme at home. She stated he has an ETOH problem and has since she has been to him. He sleeps on the couch at night. She would like for him to go to [facility] inpatient rehab when he is able to. He does not have a PCP, because he does not believe in MD's. She did make the comment that the patient has mentioned the that he has wanted to just . The reports he has been saying that for the past 3 years. I have not spoken with the patient, per NN he is confused and restrained. CM will continue to follow and will assist as needed with dc plans/needs. Makeup Sales Advisor: Jena Pacheco DCPIA - Discharge Planning Initial Assessment Updated by [email or web address]: Jena Pacheco on 06/01/20 10:35 am * Is the patient Alert and Oriented? Yes * How many steps to enter\exit or inside your home? * PCP NONE * Pharmacy [facility] * Preadmission Environment Home with Family * ADLs Independent * Equipment None * List name and contact numbers for known caregivers / representatives who currently or will assist patient after discharge: RIANA ( ) [phone] * Verbal permission to speak to the caregivers and representatives has been obtained from the patient. N/A * Community resources currently utilized None * Additional services required to return to the preadmission environment? Yes * Can the patient safely return to the preadmission environment? No * Has this patient been hospitalized within the prior 30 days at any hospital? No Coverage Notice Reviewer: [id number] - Jena Pacheco Notice Issued Date-Time: 06/01/2020 10:30 Notice Type: Patient Choice Letter Notice Delivered To: Family Member Relationship to Patient: Spouse Clinical Pharmacy Technician Name: riana Delivery Method: PHONE - Phone Days: Prior Verbal Notification: Yes Recipient Understood Notice: Recipient Signature: Med Rec Note Co-signed by Attending: Coverage Notice Comment: rey for inpatient rehab at [facility] per at [facility] Last DP export: 06/11/20 12:03 pm Patient Name: RENE ZHANG Page 09591 at 1218 All edits/amendments must be made on the electronic document DICTATION DATE: 06/12/201217 RN CASE MANAGER HOSPICE: FLOR 06/12/201217 RPT#: [id number] DC DATE: STATUS: ADM IN [facility] [address] [place] [address] END OF REPORT
--- NOTE | 2020-06-12 12:32 | MORECARE ---
CASE MANAGEMENT DISCHARGE SUMMARY PATIENT: RENE ZHANG UNIT: [id number] ADM DATE: 05/24/20 AGE: 79 : 42 SEX: M ROOM/BED: D.2202 AUTHOR: BRITTNI AMATO PHYSICIAN: REFERRING PHYSICIAN: JULIAN REIS MD DATE OF SERVICE: 06/12/20 Discharge Plan Patient Name: RENE ZHANG Facility: [facility]:[place] : 1940 Planned Disposition: Inpatient Rehab Anticipated Discharge Date: Discharge Date: Expected LOS: Initial Reviewer: [email or web address] Initial Review Date: 05/24/2020 Generated: 06/12/20 1:32 pm Comments DCP- Discharge Planning Updated by [email or web address]: Jena Pacheco on 06/12/20 11:[address] SPOKE TO PATIENTS ABOUT REFERRAL TO [facility] AND SHE IS AGREEABLE TO THAT, I ALSO EXPLAINED TO HER THAT IF THEY DID NOT ACCPET HIM THAT SHE WOULD NEED TO GET WITH HER KIDS AND PICK A SKILLED FACILITY FOR A REFERRAL TO BE SENT TO . CM WILL SEND A REFERRAL TO [facility] IN[facility]IENT [facility] DCP- Discharge Planning Updated by [email or web address]: Jena Pacheco on 06/11/20 12:[address] attempted to call patient's about her [facility] to see if this would be ok to send the referral [facility] is not going to accept him at this time. CM will tray again later at this time. DCP- Discharge Planning Updated by [email or web address]: Jena Pacheco on 06/04/20 4:[address] PATIENTS CALLED AND STATED THAT HE WILL NOT GO TO THE PSYCH UNIT DCP- Discharge Planning Updated by [email or web address]: Jena Pacheco on 06/01/20 9:[address] Patient Name: RENE ZHANG Admission Status: ER Accout number: [id number] Admission Date: 05-24-2020 : 1940 Admission Diagnosis:FRACTURE OF UNSP PART OF NECK OF RIGHT FEMUR, INIT Attending: JULIAN REIS Current LOS: 8 Anticipated DC Date: Planned Disposition: Inpatient Rehab Primary Insurance: MEDICARE A & B Discharge Planning Comments: CM met with patient 's over the phone to complete initial dc planning assessment. CM educated patient on the CM role and verbal consent given by patient to complete assessment. Patient lives at home with his spouse where he was independent with his care. His stated that he has not left his home in the past 7 months. 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 He had not needed any dme at home. She stated he has an ETOH problem and has since she has been to him. He sleeps on the couch at night. She would like for him to go to [facility] inpatient rehab when he is able to. He does not have a PCP, because he does not believe in MD's. She did make the comment that the patient has mentioned the that he has wanted to just . The reports he has been saying that for the past 3 years. I have not spoken with the patient, per NN he is confused and restrained. CM will continue to follow and will assist as needed with dc plans/needs. Town Clerk: Jena Pacheco DCPIA - Discharge Planning Initial Assessment Updated by [email or web address]: Jena Pacheco on 06/01/20 10:35 am * Is the patient Alert and Oriented? Yes * How many steps to enter\exit or inside your home? * PCP NONE * Pharmacy [facility] * Preadmission Environment Home with Family * ADLs Independent * Equipment None * List name and contact numbers for known caregivers / representatives who currently or will assist patient after discharge: RIANA ( ) [phone] * Verbal permission to speak to the caregivers and representatives has been obtained from the patient. N/A * Community resources currently utilized None * Additional services required to return to the preadmission environment? Yes * Can the patient safely return to the preadmission environment? No * Has this patient been hospitalized within the prior 30 days at any hospital? No External Providers External Provider: [facility] Next Contact Date: Service Request Date: Service Type: Resolution: Reviewer: Comments: Coverage Notice Reviewer: [id number] - Jena Pacheco Notice Issued Date-Time: 06/01/2020 10:30 Notice Type: Patient Choice Letter Notice Delivered To: Family Member Relationship to Patient: Spouse Dairy Helper Name: riana Delivery Method: PHONE - Phone Days: Prior Verbal Notification: Yes Recipient Understood Notice: Recipient Signature: Med Rec Note Co-signed by Attending: Coverage Notice Comment: rey for inpatient rehab at [facility] per at [facility] Last DP export: 06/12/20 11:18 am Patient Name: RENE ZHANG Page 63086 at 1232 All edits/amendments must be made on the electronic document DICTATION DATE: 06/12/20 1232 FINAL INSPECTOR PAPER: FLOR 06/12/20 1232 RPT#: [id number] DC DATE: STATUS: ADM IN [facility] [address] [place] [address] END OF REPORT
--- NOTE | 2020-06-12 13:12 | NUR ---
Nutrition Re-Assessment Diet: Regular Puree with 1:1 feeding assistance + Ensure TID PO intake: ~15% average x last 4 meals recorded. Patient was asleep at time of RD visit. Lunch tray had not been touched. PPN: ProcalAmine @ 75mL/hr = 441kcal, 52gms protein Last BM: 06/11/20 Wt: 130# (05/27/20), no new weight Meds reviewed Labs noted: BUN 39(H), alb 3.2(L) Estimated nutrition needs and nutrition diagnosis remain unchanged at this time. Not progressing towards nutrition goals at this time. Recommendations/Interventions: -Needs new weight. -Recommend continue current diet (or per TWITCHELL OPERATOR recommendations). -Continue 1:1 feedings as needed, encourage PO intake at meal times. -Continue oral nutrition supplement TID. -Recommend MD to consider adding appetite stimulant as medically feasible. -MD may consider PEG placement to help meet nutrition needs longer-term. -RD will follow-up 06/15/20.
--- NOTE | 2020-06-12 15:25 | NUR ---
OT NOTE: PT EXHIBITED INCREASED COOPERATION AND ACTIVELY PARTICIPATED WITH THERAPY. PT REQUIRED LESS CUES FOR ACTIVE PARTICIPATION. PT REQUIRED LESS PHYSICAL A WITH SUPINE TO SIT AND BASIC BED MOBILITY. PT COMPLETED FACE AND HAND HYGIENE WITH MIN A. PT DID WELL. [id number] THANK YOU,ALLYSON POTTER
[2020-06-12 16:10] VITALS: BP 104/61
--- NOTE | 2020-06-12 19:59 | NUR ---
Assumed care of pt after rounds/report. Pt lying in bed with spouse at bedside. Remains Alert and oriented to self only. Denies pain/discomfort and Faces pain scale correlates with same. Pt does take fluids well and offered same. Rt hip incision is well approximated with steri-strips.
[2020-06-12 21:08] VITALS: BP 104/60
[2020-06-13 01:26] VITALS: BP 112/61
[2020-06-13 05:38] LABS: BASOPHILS 0.4 % (0-2); EOSINOPHILS 3.7 % (0-7); HEMATOCRIT 34.1 % (42.0-54.0); HEMOGLOBIN 10.8 g/dL (13.5-17.5); IMMATURE GRANULOCYTES 0.3 % (0-5); LYMPHOCYTES 20.8 % (15-50); MCH 31.1 pg (26.0-34.0); MCHC 31.7 g/dL (31.0-37.0); MCV 98.3 fL (80.0-100.0); MEAN PLATELET VOLUME 9.2 fL (7.4-10.4); MONOCYTES 7.2 % (2-11); NEUTROPHIL ABS# 4.88 10x3/uL (1.78-5.38); NEUTROPHILS 67.6 % (40-80); PLATELET COUNT 605 10x3/uL (130-400); RBC 3.47 10x6/uL (4.20-6.10); WBC 7.2 10x3/uL (4.8-10.8)
[2020-06-13 06:13] LABS: ALKALINE PHOSPHATASE 114 U/L (30-120); ALT (SGPT) 25 U/L (10-68); BILIRUBIN - TOTAL 0.85 mg/dL (0.2-1.3); CALC OSMOLALITY 281 mosm/kg (275-300); CALCIUM 8.7 mg/dL (8.5-10.1); CARBON DIOXIDE 26.4 mmol/L (21.0-32.0); CHLORIDE - SERUM 104 mmol/L (98-107); GLUCOSE 89 mg/dL (74-106); PROTEIN - SERUM 6.4 g/dL (6.4-8.2); SODIUM 138 mmol/L (136-145); UREA NITROGEN 33 mg/dL (7-18); eGFR NON AFRICAN AMERICAN 77 mL/min (90-120)
[2020-06-13 06:14] LABS: POTASSIUM - SERUM 3.7 mmol/L (3.5-5.1)
[2020-06-13 06:26] VITALS: BP 113/74
[2020-06-13 08:25] VITALS: BP 124/65
--- NOTE | 2020-06-13 09:00 | NUR ---
ALERT AND ORIENTED TO SELF ONLY. REFUSES MEALS BUT WITLL DRINK ENSURE 100%. TELEMETRY INTACT. STERISTRIPS INTACT TO RT. HIP WITH FALL PRECAUTIONS IN PLACE. PERICARE DONE WITH EACH INCONT. EPISODE AND REPOSITIONED
--- NOTE | 2020-06-13 11:23 | MORECARE ---
CASE MANAGEMENT DISCHARGE SUMMARY PATIENT: RENE DUARTE UNIT: [id number] ADM DATE: 05/24/20 AGE: 79 : 42 SEX: M ROOM/BED: D.2202 AUTHOR: BRITTNI AMATO PHYSICIAN: REFERRING PHYSICIAN: JULIAN REIS MD DATE OF SERVICE: 06/13/20 Discharge Plan Patient Name: RENE DUARTE Facility: [facility]:[place] : 1940 Planned Disposition: Inpatient Rehab Anticipated Discharge Date: Discharge Date: Expected LOS: Initial Reviewer: [email or web address] Initial Review Date: 05/24/2020 Generated: 06/13/20 12:22 pm Comments DCP- Discharge Planning Updated by [email or web address]: Enrique Hennessy on 06/13/20 10:[address] Received phone call from spouse of patient, Katina Duarte ([phone]) on 13 June 2020 at 0950. Mrs. Duarte stated that she is worried about bringing her home and would like for him to go to inpatient rehab before coming home. Mrs. Duarte stated that she takes care of grandchildren and cannot at 74 years old lift her . Mrs. Duarte expressed concern about her 's inappropriate behavior at times with undressing and "playing" with feces. Mrs. Duarte stated that he cannot be around the grandchildren if he continues that type of behavior. Mrs. Duarte further expressed concern about her 's lack of eating and the "bland" food at [facility]. CM informed Mrs. Duarte that a psych eval may be needed as well as placement in a SNF. Mrs. Duarte stated that she would like for her to go to Inpatient rehab "downstairs" and if he could not go there, then "...[facility]". REY telephonically signed and placed in chart. Mrs. Duarte stated that she would like to speak to the physician or DIE INSPECTOR regarding her . CM informed Mrs. Duarte that her concerns will be discussed at IDT and the need to discuss SNF placement. Mrs. Duarte is not opposed to psych evaluation for her . DC IMM telephonically explained, signed, and placed on chart per current Isolation protocols. DC IMM will be delivered via certified mail. CM will continue to follow and will assist as needed with dc plans/needs. DCP- Discharge Planning Updated by [email or web address]: Jena Pacheco on 06/12/20 11:[address] SPOKE TO PATIENTS ABOUT REFERRAL TO [facility] AND SHE IS AGREEABLE TO THAT, I ALSO EXPLAINED TO HER THAT IF THEY DID NOT ACCPET HIM THAT SHE WOULD NEED TO GET WITH HER KIDS AND PICK A SKILLED FACILITY FOR A REFERRAL TO BE SENT TO . CM WILL SEND A REFERRAL TO [facility] INPATIENT [facility] DCP- Discharge Planning Updated by [email or web address]: Jena Pacheco on 06/11/20 12:[address] attempted to call patient's about her [facility] to see if this would be ok to send the referral [facility] is not going to accept him at this time. CM will tray again later at this time. DCP- Discharge Planning Updated by [email or web address]: Jena Pacheco on 06/04/20 4:[address] PATIENTS CALLED AND STATED THAT HE WILL NOT GO TO THE PSYCH UNIT DCP- Discharge Planning Updated by [email or web address]: Jena Pacheco on 06/01/20 9:[address] Patient Name: RENE DUARTE Admission Status: ER Accout number: [id number] Admission Date: 05-24-2020 : 1940 Admission Diagnosis:FRACTURE OF UNSP PART OF NECK OF RIGHT FEMUR, INIT Attending: JULIAN REIS Current LOS: 8 Anticipated DC Date: Planned Disposition: Inpatient Rehab Primary Insurance: MEDICARE A & B Discharge Planning Comments: CM met with patient 's over the phone to complete initial dc planning assessment. CM educated patient on the CM role and verbal consent given by patient to complete assessment. Patient lives at home with his spouse where he was independent with his care. His stated that he has not left his home in the past 7 months. 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 He had not needed any dme at home. She stated he has an ETOH problem and has since she has been to him. He sleeps on the couch at night. She would like for him to go to [facility] inpatient rehab when he is able to. He does not have a PCP, because he does not believe in MD's. She did make the comment that the patient has mentioned the that he has wanted to just . The reports he has been saying that for the past 3 years. I have not spoken with the patient, per NN he is confused and restrained. CM will continue to follow and will assist as needed with dc plans/needs. Liquor Rectifier: Jena Pacheco DCPIA - Discharge Planning Initial Assessment Updated by [email or web address]: Jena Pacheco on 06/01/20 10:35 am * Is the patient Alert and Oriented? Yes * How many steps to enter\\exit or inside your home? * PCP NONE * Pharmacy [facility] * Preadmission Environment Home with Family * ADLs Independent * Equipment None * List name and contact numbers for known caregivers / representatives who currently or will assist patient after discharge: KATINA ( ) [phone] * Verbal permission to speak to the caregivers and representatives has been obtained from the patient. N/A * Community resources currently utilized None * Additional services required to return to the preadmission environment? Yes * Can the patient safely return to the preadmission environment? No * Has this patient been hospitalized within the prior 30 days at any hospital? No Coverage Notice Reviewer: [id number] - Jnea Pacheco Notice Issued Date-Time: 06/01/2020 10:30 Notice Type: Patient Choice Letter Notice Delivered To: Family Member Relationship to Patient: Spouse Publisher Assistant Name: katina Delivery Method: PHONE - Phone Days: Prior Verbal Notification: Yes Recipient Understood Notice: Recipient Signature: Med Rec Note Co-signed by Attending: Coverage Notice Comment: rey for inpatient rehab at [facility] per at [facility] Reviewer: [id number] - Enrique Hennessy Notice Issued Date-Time: 06/13/2020 9:50 Notice Type: Patient Choice Letter Notice Delivered To: Family Member Relationship to Patient: Spouse Publisher Assistant Name: KATINA Delivery Method: PHONE - Phone Days: Prior Verbal Notification: Recipient Understood Notice: Yes Recipient Signature: Yes Med Rec Note Co-signed by Attending: Coverage Notice Comment: [facility] Last DP export: 06/12/20 11:32 am Patient Name: RENE DUARTE Page 88145 at 1123 All edits/amendments must be made on the electronic document DICTATION DATE: 06/13/201122 TANK FARM GAUGER: FLOR 06/13/201122 RPT#: [id number] DC DATE: STATUS: ADM IN [facility] [address] [place] [address] END OF REPORT
[2020-06-13 13:25] VITALS: BP 102/68
[2020-06-13 17:11] VITALS: BP 117/64
--- NOTE | 2020-06-13 17:34 | NUR ---
PATINET OFFERED WATER OFTEN THSI SHIFT AND REFUSES BUT DRINK ENSURE 100%. FALL PRECAUTIONS REMAIN IN PLACE.
[2020-06-13 19:59] VITALS: BP 123/79
--- NOTE | 2020-06-13 19:59 | NUR ---
Assumed care of pt after rounds/report. Pt lying in bed fidgeting with gown and blankets. Alert and oriented to self only. No s/sx of pain and pt denies when asked. Did offer fluids and pt refused. Assisted with repositioning and covering then pt settled.
[2020-06-14] VITALS (7 sets, daily range): BP systolic 90–109; BP diastolic 50–69
[2020-06-14 06:52] LABS: ALBUMIN 3.1 g/dL (3.4-5.0); ALKALINE PHOSPHATASE 123 U/L (30-120); ALT (SGPT) 27 U/L (10-68); CALC OSMOLALITY 275 mosm/kg (275-300); CALCIUM 9.1 mg/dL (8.5-10.1); CARBON DIOXIDE 24.9 mmol/L (21.0-32.0); CHLORIDE - SERUM 102 mmol/L (98-107); GLUCOSE 86 mg/dL (74-106); POTASSIUM - SERUM 3.8 mmol/L (3.5-5.1); PROTEIN - SERUM 6.7 g/dL (6.4-8.2); SODIUM 136 mmol/L (136-145); UREA NITROGEN 27 mg/dL (7-18); eGFR NON AFRICAN AMERICAN 77 mL/min (90-120)
[2020-06-14 06:56] LABS: BASOPHILS 0.4 % (0-2); EOSINOPHILS 2.2 % (0-7); HEMATOCRIT 35.9 % (42.0-54.0); HEMOGLOBIN 11.5 g/dL (13.5-17.5); IMMATURE GRANULOCYTES 0.1 % (0-5); LYMPHOCYTE ABS# 1.09 10x3/uL (1.32-3.57); LYMPHOCYTES 15.2 % (15-50); MCH 31.6 pg (26.0-34.0); MCV 98.6 fL (80.0-100.0); MEAN PLATELET VOLUME 9.3 fL (7.4-10.4); NEUTROPHILS 74.1 % (40-80); PLATELET COUNT 611 10x3/uL (130-400); RBC 3.64 10x6/uL (4.20-6.10); RDW 13.9 % (11.5-14.5); WBC 7.2 10x3/uL (4.8-10.8)
--- NOTE | 2020-06-14 09:00 | NUR ---
ALERT AND ORIENTED TO SELF ONLY. PERICARE DONE WITH BATHING AND EACH INCONT. EPISODE. STERISTRIPS INTACT TO RIGHT HIP WITH PEDAL PULSES NOTED. PATINET FREQUENTLY OFFERED FLUIDS BUT REFUSES. CONSUMES 50-100 % SUPPLEMENTS AT MEALTIME ONLY. FALL PRECAUTIONS IN PLACE. ENCOURAGED TO USE CALL LIGHT FOR ASSIST
--- NOTE | 2020-06-14 16:47 | MORECARE ---
CASE MANAGEMENT DISCHARGE SUMMARY PATIENT: RENE DUARTE UNIT: [id number] ADM DATE: 05/24/20 AGE: 79 : 42 SEX: M ROOM/BED: D.2202 AUTHOR: BRITTNI AMATO PHYSICIAN: REFERRING PHYSICIAN: JULIAN REIS MD DATE OF SERVICE: 06/14/20 Discharge Plan Patient Name: RENE DUARTE Facility: [facility]:[place] : 1940 Planned Disposition: Inpatient Rehab Anticipated Discharge Date: Discharge Date: Expected LOS: Initial Reviewer: [id number] Initial Review Date: 05/24/2020 Generated: 06/14/20 5:47 pm Comments DCP- Discharge Planning Updated by [email or web address]: Enrique Hennessy on 06/13/20 10:[address] Received phone call from spouse of patient, Katina Duarte ([phone]) on 13 June 2020 at 0950. Mrs. Duarte stated that she is worried about bringing her home and would like for him to go to inpatient rehab before coming home. Mrs. Duarte stated that she takes care of grandchildren and cannot at 74 years old lift her . Mrs. Duarte expressed concern about her 's inappropriate behavior at times with undressing and "playing" with feces. Mrs. Duarte stated that he cannot be around the grandchildren if he continues that type of behavior. Mrs. Duarte further expressed concern about her 's lack of eating and the "bland" food at [facility]. CM informed Mrs. Duarte that a psych eval may be needed as well as placement in a SNF. Mrs. Duarte stated that she would like for her to go to Inpatient rehab "downstairs" and if he could not go there, then "...across [facility] on [facility]". REY telephonically signed and placed in chart. Mrs. Duarte stated that she would like to speak to the physician or STATIONARY BOILER FIREMAN regarding her . CM informed Mrs. Duarte that her concerns will be discussed at IDT and the need to discuss SNF placement. Mrs. Duarte is not opposed to psych evaluation for her . DC IMM telephonically explained, signed, and placed on chart per current Isolation protocols. DC IMM will be delivered via certified mail. CM will continue to follow and will assist as needed with dc plans/needs. DCP- Discharge Planning Updated by [email or web address]: Jena Pacheco on 06/12/20 11:[address] SPOKE TO PATIENTS ABOUT REFERRAL TO [facility] RE[facility] AND SHE IS AGREEABLE TO THAT, I ALSO EXPLAINED TO HER THAT IF THEY DID NOT ACCPET HIM THAT SHE WOULD NEED TO GET WITH HER KIDS AND PICK A SKILLED FACILITY FOR A REFERRAL TO BE SENT TO . CM WILL SEND A REFERRAL TO [facility] DCP- Discharge Planning Updated by [id number]: Jena Pacheco on 06/11/20 12:[address] attempted to call patient's about her [facility] to see if this would be ok to send the referral [facility] is not going to accept him at this time. CM will tray again later at this time. DCP- Discharge Planning Updated by [email or web address]: Jena Pacheco on 06/04/20 4:[address] PATIENTS CALLED AND STATED THAT HE WILL NOT GO TO THE PSYCH UNIT DCP- Discharge Planning Updated by [email or web address]: Jena Pacheco on 06/01/20 9:[address] Patient Name: RENE DUARTE Admission Status: ER Accout number: [id number] Admission Date: 05-24-2020 : 1940 Admission Diagnosis:FRACTURE OF UNSP PART OF NECK OF RIGHT FEMUR, INIT Attending: JULIAN REIS Current LOS: 8 Anticipated DC Date: Planned Disposition: Inpatient Rehab Primary Insurance: MEDICARE A & B Discharge Planning Comments: CM met with patient 's over the phone to complete initial dc planning assessment. CM educated patient on the CM role and verbal consent given by patient to complete assessment. Patient lives at home with his spouse where he was independent with his care. His stated that he has not left his home in the past 7 months. 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 He had not needed any dme at home. She stated he has an ETOH problem and has since she has been to him. He sleeps on the couch at night. She would like for him to go to [facility] inpatient rehab when he is able to. He does not have a PCP, because he does not believe in MD's. She did make the comment that the patient has mentioned the that he has wanted to just . The reports he has been saying that for the past 3 years. I have not spoken with the patient, per NN he is confused and restrained. CM will continue to follow and will assist as needed with dc plans/needs. Unit Secy: Jena Pacheco DCPIA - Discharge Planning Initial Assessment Updated by [email or web address]: Jena Pacheco on 06/01/20 10:35 am * Is the patient Alert and Oriented? Yes * How many steps to enter\\exit or inside your home? * PCP NONE * Pharmacy [facility] * Preadmission Environment Home with Family * ADLs Independent * Equipment None * List name and contact numbers for known caregivers / representatives who currently or will assist patient after discharge: KATINA ( ) [phone] * Verbal permission to speak to the caregivers and representatives has been obtained from the patient. N/A * Community resources currently utilized None * Additional services required to return to the preadmission environment? Yes * Can the patient safely return to the preadmission environment? No * Has this patient been hospitalized within the prior 30 days at any hospital? No External Providers External Provider: [facility] and [facility] Next Contact Date: Service Request Date: Service Type: Resolution: Reviewer: Comments: Coverage Notice Reviewer: [id number] - Jena Pacheco Notice Issued Date-Time: 06/01/2020 10:30 Notice Type: Patient Choice Letter Notice Delivered To: Family Member Relationship to Patient: Spouse Board Certified Music Therapist Name: katina Delivery Method: PHONE - Phone Days: Prior Verbal Notification: Yes Recipient Understood Notice: Recipient Signature: Med Rec Note Co-signed by Attending: Coverage Notice Comment: rey for inpatient rehab at [facility] per at [facility] Reviewer: [id number] - Enrique Hennessy Notice Issued Date-Time: 06/13/2020 9:50 Notice Type: Patient Choice Letter Notice Delivered To: Family Member Relationship to Patient: Spouse Board Certified Music Therapist Name: KATINA Delivery Method: PHONE - Phone Days: Prior Verbal Notification: Recipient Understood Notice: Yes Recipient Signature: Yes Med Rec Note Co-signed by Attending: Coverage Notice Comment: [facility] Reviewer: [id number] Wyatt Hennessy Notice Issued Date-Time: 06/13/2020 9:50 Notice Type: IM Discharge Notice Notice Delivered To: Family Member Relationship to Patient: Spouse Board Certified Music Therapist Name: KATINA Delivery Method: PHONE - Phone Days: Prior Verbal Notification: Recipient Understood Notice: Yes Recipient Signature: Yes Med Rec Note Co-signed by Attending: Coverage Notice Comment: DC IMM telephonically explained, signed, and placed on chart per current Isolation protocols. Last DP export: 06/13/20 10:23 am Patient Name: RENE DUARTE Page 12684 at 1647 All edits/amendments must be made on the electronic document DICTATION DATE: 06/14/201646 CORN GRINDER: FLOR 06/14/201646 RPT#: [id number] DC DATE: STATUS: ADM IN [facility] [address] [place] [address] END OF REPORT
--- NOTE | 2020-06-14 17:01 | MORECARE ---
CASE MANAGEMENT DISCHARGE SUMMARY PATIENT: RENE DUARTE UNIT: [id number] ADM DATE: 05/24/20 AGE: 79 : 42 SEX: M ROOM/BED: D.2202 AUTHOR: LM,DOC PHYSICIAN: REFERRING PHYSICIAN: JULIAN REIS MD DATE OF SERVICE: 06/14/20 Discharge Plan Patient Name: RENE DUARTE Facility: [facility]:[place] : 1940 Planned Disposition: Inpatient Rehab Anticipated Discharge Date: Discharge Date: Expected LOS: Initial Reviewer: [id number] Initial Review Date: 05/24/2020 Generated: 06/14/20 6:01 pm Comments DCP- Discharge Planning Updated by [email or web address]: Enrique Hennessy on 06/14/20 4:[address] CM team notified by [facility] that patient is not appropriate for admit. CM notified Katina Duarte ( of patient) that patient will not be able to admit to [facility]. CM discussed SNF for rehabilitation. Mrs. Duarte consents to [facility] for rehabilitation. REY telephonically signed and placed in chart. Clinicals faxed to [facility]. CM will continue to follow and will assist as needed with dc plans/needs. DCP- Discharge Planning Updated by [id number]: Enrique Hennessy on 06/13/20 10:[address] Received phone call from spouse of patient, Katina Duarte ([phone]) on 13 June 2020 at 0950. Mrs. Duarte stated that she is worried about bringing her home and would like for him to go to inpatient rehab before coming home. Mrs. Duarte stated that she takes care of grandchildren and cannot at 74 years old lift her . Mrs. Duarte expressed concern about her 's inappropriate behavior at times with undressing and "playing" with feces. Mrs. Duarte stated that he cannot be around the grandchildren if he continues that type of behavior. Mrs. Duarte further expressed concern about her 's lack of eating and the "bland" food at [facility]. CM informed Mrs. Duarte that a psych eval may be needed as well as placement in a SNF. Mrs. Duarte stated that she would like for her to go to Inpatient rehab "downstairs" and if he could not go there, then "...across [facility] on [facility] REY telephonically signed and placed in chart. Mrs. Duarte stated that she would like to speak to the physician or CHEMICALS FERMENTATION OPERATOR regarding her . CM informed Mrs. Duarte that her concerns will be discussed at IDT and the need to discuss SNF placement. Mrs. Duarte is not opposed to psych evaluation for her . DC IMM telephonically explained, signed, and placed on chart per current Isolation protocols. DC IMM will be delivered via certified mail. CM will continue to follow and will assist as needed with dc plans/needs. DCP- Discharge Planning Updated by [id number]: Jena Pacheco on 06/12/20 11:[address] SPOKE TO PATIENTS ABOUT REFERRAL TO [facility] REH[facility] AND SHE IS AGREEABLE TO THAT, I ALSO EXPLAINED TO HER THAT IF THEY DID NOT ACCPET HIM THAT SHE WOULD NEED TO GET WITH HER KIDS AND PICK A SKILLED FACILITY FOR A REFERRAL TO BE SENT TO . CM WILL SEND A REFERRAL TO [facility] INPATIENT REHAB DCP- Discharge Planning Updated by [email or web address]: Jena Pacheco on 06/11/20 12:[address] attempted to call patient's about her [facility] to see if this would be ok to send the referral [facility] is not going to accept him at this time. CM will tray again later at this time. DCP- Discharge Planning Updated by [id number]: Jena Pacheco on 06/04/20 4:[address] PATIENTS CALLED AND STATED THAT HE WILL NOT GO TO THE PSYCH UNIT DCP- Discharge Planning Updated by [id number]: Jena Pacheco on 06/01/20 9:[address] Patient Name: RENE DUARTE Admission Status: ER Accout number: [id number] Admission Date: 05-24-2020 : 1940 Admission Diagnosis:FRACTURE OF UNSP PART OF NECK OF RIGHT FEMUR, INIT Attending: JULIAN REIS Current LOS: 8 Anticipated DC Date: Planned Disposition: Inpatient Rehab Primary Insurance: MEDICARE A & B Discharge Planning Comments: CM met with patient 's over the phone to complete initial dc planning assessment. CM educated patient on the CM role and verbal consent given by patient to complete assessment. Patient lives at home with his spouse where he was independent with his care. His stated that he has not left his home in the past 7 months. 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 He had not needed any dme at home. She stated he has an ETOH problem and has since she has been to him. He sleeps on the couch at night. She would like for him to go to [facility] inpatient rehab when he is able to. He does not have a PCP, because he does not believe in MD's. She did make the comment that the patient has mentioned the that he has wanted to just . The reports he has been saying that for the past 3 years. I have not spoken with the patient, per NN he is confused and restrained. CM will continue to follow and will assist as needed with dc plans/needs. Oliver Filter Operator: Jena Pacheco DCPIA - Discharge Planning Initial Assessment Updated by [id number]: Jena Pacheco on 06/01/20 10:35 am * Is the patient Alert and Oriented? Yes * How many steps to enter\\exit or inside your home? * PCP NONE * Pharmacy [facility] * Preadmission Environment Home with Family * ADLs Independent * Equipment None * List name and contact numbers for known caregivers / representatives who currently or will assist patient after discharge: KATINA ( ) [phone] * Verbal permission to speak to the caregivers and representatives has been obtained from the patient. N/A * Community resources currently utilized None * Additional services required to return to the preadmission environment? Yes * Can the patient safely return to the preadmission environment? No * Has this patient been hospitalized within the prior 30 days at any hospital? No Coverage Notice Reviewer: [id number] - Jena Pacheco Notice Issued Date-Time: 06/01/2020 10:30 Notice Type: Patient Choice Letter Notice Delivered To: Family Member Relationship to Patient: Spouse Machinist Name: katina Delivery Method: PHONE - Phone Days: Prior Verbal Notification: Yes Recipient Understood Notice: Recipient Signature: Med Rec Note Co-signed by Attending: Coverage Notice Comment: rey for inpatient rehab at [facility] per at [facility] Reviewer: [id number] Wyatt Hennessy Notice Issued Date-Time: 06/13/2020 9:50 Notice Type: Patient Choice Letter Notice Delivered To: Family Member Relationship to Patient: Spouse Machinist Name: KATINA Delivery Method: PHONE - Phone Days: Prior Verbal Notification: Recipient Understood Notice: Yes Recipient Signature: Yes Med Rec Note Co-signed by Attending: Coverage Notice Comment: [facility] Reviewer: [id number] Wyatt Hennessy Notice Issued Date-Time: 06/13/2020 9:50 Notice Type: IM Discharge Notice Notice Delivered To: Family Member Relationship to Patient: Spouse Machinist Name: KATINA Delivery Method: PHONE - Phone Days: Prior Verbal Notification: Recipient Understood Notice: Yes Recipient Signature: Yes Med Rec Note Co-signed by Attending: Coverage Notice Comment: DC IMM telephonically explained, signed, and placed on chart per current Isolation protocols. Last DP export: 06/14/20 3:48 pm Patient Name: RENE DUARTE Page 42697 at 1701 All edits/amendments must be made on the electronic document DICTATION DATE: 06/14/20 170 FINANCIAL AID: FLOR 06/14/201700 RPT#: [id number] DC DATE: STATUS: ADM IN [facility] [address] [place] [address] END OF REPORT
--- NOTE | 2020-06-14 20:17 | NUR ---
Assumed care of pt after report/rounds. Pt is lying in bed resting and remains oriented to self only. Did review some safety measures and ADL info with pt but, further reiteration will need to be done. No s/sx of pain/discomfort. Pleasant and cooperative with cares and assessment. Spouse was in to visit this evening.
[2020-06-15 06:48] LABS: ALBUMIN 3.3 g/dL (3.4-5.0); BILIRUBIN - TOTAL 1.08 mg/dL (0.2-1.3); CALCIUM 9.3 mg/dL (8.5-10.1); CARBON DIOXIDE 25.8 mmol/L (21.0-32.0); CREATININE - SERUM 1.1 mg/dL (0.6-1.3); PROTEIN - SERUM 6.3 g/dL (6.4-8.2)
[2020-06-15 06:49] LABS: POTASSIUM - SERUM 4.8 mmol/L (3.5-5.1)
[2020-06-15 07:15] LABS: BASOPHILS 0.8 % (0-2); EOSINOPHILS 3.5 % (0-7); HEMATOCRIT 36.7 % (42.0-54.0); HEMOGLOBIN 11.7 g/dL (13.5-17.5); IMMATURE GRANULOCYTES 0.2 % (0-5); LYMPHOCYTE ABS# 0.96 10x3/uL (1.32-3.57); LYMPHOCYTES 15.3 % (15-50); MCH 31.6 pg (26.0-34.0); MCHC 31.9 g/dL (31.0-37.0); MCV 99.2 fL (80.0-100.0); MEAN PLATELET VOLUME 9.5 fL (7.4-10.4); MONOCYTES 10.2 % (2-11); NEUTROPHIL ABS# 4.41 10x3/uL (1.78-5.38); PLATELET COUNT 549 10x3/uL (130-400); RDW 14.1 % (11.5-14.5); WBC 6.3 10x3/uL (4.8-10.8)
--- NOTE | 2020-06-15 07:31 | NUR ---
RECIEVED BEDSIDE REPORT. PATIENT IN BED, RESTING. AROUSES TO VOICE. FREE FROM SIGNS OF DISTRESS. BED LOW POSITION, CALL LIGHT IN REACH. WILL CONTINUE TO MONITOR.
[2020-06-15 09:04] VITALS: BP 129/63
--- NOTE | 2020-06-15 11:51 | MORECARE ---
CASE MANAGEMENT DISCHARGE SUMMARY PATIENT: RENE DUARTE UNIT: [id number] ADM DATE: 05/24/20 AGE: 79 : 42 SEX: M ROOM/BED: D.2202 AUTHOR: LM,DOC PHYSICIAN: REFERRING PHYSICIAN: JULIAN REIS MD DATE OF SERVICE: 06/15/20 Discharge Plan Patient Name: RENE DUARTE Facility: [facility]:[place] : 1940 Planned Disposition: Inpatient Rehab Anticipated Discharge Date: Discharge Date: Expected LOS: Initial Reviewer: [id number] Initial Review Date: 05/24/2020 Generated: 06/15/20 12:51 pm Comments DCP- Discharge Planning Updated by [id number]: Jena Pacheco on 06/15/20 10:[address] Spoke with Nicole at [facility], she will speak to about exterminator helper termite goals and then will come see the patient to assess id they can accept him. CM to follow and assist as needed DCP- Discharge Planning Updated by [id number]: Enrique Hennessy on 06/14/20 4:[address] CM team notified by [facility] that patient is not appropriate for admit. CM notified Katina Duarte ( of patient) that patient will not be able to admit to [facility]. CM discussed SNF for rehabilitation. Mrs. Duarte consents to [facility] for rehabilitation. REY telephonically signed and placed in chart. Clinicals faxed to [facility]. CM will continue to follow and will assist as needed with dc plans/needs. DCP- Discharge Planning Updated by [id number]: Enrique Hennessy on 06/13/20 10:[address] Received phone call from spouse of patient, Katina Duarte ([phone]) on 13 June 2020 at 0950. Mrs. Duarte stated that she is worried about bringing her home and would like for him to go to inpatient rehab before coming home. Mrs. Duarte stated that she takes care of grandchildren and cannot at 74 years old lift her . Mrs. Duarte expressed concern about her 's inappropriate behavior at times with undressing and "playing" with feces. Mrs. Duarte stated that he cannot be around the grandchildren if he continues that type of behavior. Mrs. Duarte further expressed concern about her 's lack of eating and the "bland" food at [facility]. CM informed Mrs. Duarte that a psych eval may be needed as well as placement in a SNF. Mrs. Duarte stated that she would like for her to go to Inpatient rehab "downstairs" and if he could not go there, then "...across [facility] on [facility]". REY telephonically signed and placed in chart. Mrs. Duarte stated that she would like to speak to the physician or PHONOGRAPH MECHANIC regarding her . CM informed Mrs. Duarte that her concerns will be discussed at IDT and the need to discuss SNF placement. Mrs. Duarte is not opposed to psych evaluation for her . DC IMM telephonically explained, signed, and placed on chart per current Isolation protocols. DC IMM will be delivered via certified mail. CM will continue to follow and will assist as needed with dc plans/needs. DCP- Discharge Planning Updated by [id number]: Jena Pacheco on 06/12/20 11:[address] SPOKE TO PATIENTS ABOUT REFERRAL TO [facility] REH[facility] AND SHE IS AGREEABLE TO THAT, I ALSO EXPLAINED TO HER THAT IF THEY DID NOT ACCPET HIM THAT SHE WOULD NEED TO GET WITH HER KIDS AND PICK A SKILLED FACILITY FOR A REFERRAL TO BE SENT TO . CM WILL SEND A REFERRAL TO [facility] INPATIENT REHAB DCP- Discharge Planning Updated by [id number]: Jena Pacheco on 06/11/20 12:[address] attempted to call patient's about her [facility] to see if this would be ok to send the referral [facility] is not going to accept him at this time. CM will tray again later at this time. DCP- Discharge Planning Updated by [id number]: Jena Pacheco on 06/04/20 4:[address] PATIENTS CALLED AND STATED THAT HE WILL NOT GO TO THE PSYCH UNIT DCP- Discharge Planning Updated by [id number]: Jena Pacheco on 06/01/20 9:[address] Patient Name: RENE DUARTE Admission Status: ER Accout number: [id number] Admission Date: 05-24-2020 : 1940 Admission Diagnosis:FRACTURE OF UNSP PART OF NECK OF RIGHT FEMUR, INIT Attending: JULIAN REIS Current LOS: 8 Anticipated DC Date: Planned Disposition: Inpatient Rehab Primary Insurance: MEDICARE A & B Discharge Planning Comments: CM met with patient 's over the phone to complete initial dc planning assessment. CM educated patient on the CM role and verbal consent given by patient to complete assessment. Patient lives at home with his spouse where he was independent with his care. His stated that he has not left his home in the past 7 months. 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 He had not needed any dme at home. She stated he has an ETOH problem and has since she has been to him. He sleeps on the couch at night. She would like for him to go to [facility] inpatient rehab when he is able to. He does not have a PCP, because he does not believe in MD's. She did make the comment that the patient has mentioned the that he has wanted to just . The reports he has been saying that for the past 3 years. I have not spoken with the patient, per NN he is confused and restrained. CM will continue to follow and will assist as needed with dc plans/needs. Sales Project Manager: Jena Pacheco DCPIA - Discharge Planning Initial Assessment Updated by [id number]: Jena Pacheco on 06/01/20 10:35 am * Is the patient Alert and Oriented? Yes * How many steps to enter\\exit or inside your home? * PCP NONE * Pharmacy [facility] * Preadmission Environment Home with Family * ADLs Independent * Equipment None * List name and contact numbers for known caregivers / representatives who currently or will assist patient after discharge: KATINA ( ) [phone] * Verbal permission to speak to the caregivers and representatives has been obtained from the patient. N/A * Community resources currently utilized None * Additional services required to return to the preadmission environment? Yes * Can the patient safely return to the preadmission environment? No * Has this patient been hospitalized within the prior 30 days at any hospital? No Coverage Notice Reviewer: [id number] - Jena Pacheco Notice Issued Date-Time: 06/01/2020 10:30 Notice Type: Patient Choice Letter Notice Delivered To: Family Member Relationship to Patient: Spouse Radiology Orderly Name: katina Delivery Method: PHONE - Phone Days: Prior Verbal Notification: Yes Recipient Understood Notice: Recipient Signature: Med Rec Note Co-signed by Attending: Coverage Notice Comment: rey for inpatient rehab at [facility] per at [facility] Reviewer: [id number] Hennessy Notice Issued Date-Time: 06/13/2020 9:50 Notice Type: Patient Choice Letter Notice Delivered To: Family Member Relationship to Patient: Spouse Radiology Orderly Name: KATINA Delivery Method: PHONE - Phone Days: Prior Verbal Notification: Recipient Understood Notice: Yes Recipient Signature: Yes Med Rec Note Co-signed by Attending: Coverage Notice Comment: [facility] Reviewer: [id number] Hennessy Notice Issued Date-Time: 06/13/2020 9:50 Notice Type: IM Discharge Notice Notice Delivered To: Family Member Relationship to Patient: Spouse Radiology Orderly Name: KATINA Delivery Method: PHONE - Phone Days: Prior Verbal Notification: Recipient Understood Notice: Yes Recipient Signature: Yes Med Rec Note Co-signed by Attending: Coverage Notice Comment: DC IMM telephonically explained, signed, and placed on chart per current Isolation protocols. Last DP export: 06/14/20 4:01 pm Patient Name: RENE DURATE Page 94793 at 1151 All edits/amendments must be made on the electronic document DICTATION DATE: 06/15/20 1151 DIRECTOR RADIO: FLOR 06/15/20 1151 RPT#: [id number] DC DATE: STATUS: ADM IN [facility] [address] [place] [address] END OF REPORT
[2020-06-15 12:21] VITALS: BP 114/55
--- NOTE | 2020-06-15 13:00 | NUR ---
PATIENT REFUSING TO EAT LUNCH. DRANK PART OF AN ENSURE, BUT REFUSING FOOD. TRIED X3 TIMES.
--- NOTE | 2020-06-15 13:38 | NUR ---
IN BED AWAKE AND CONFUSED. DENIES NEEDS. BED LOW POSITION, CALL LIGHT IN REACH. WILL CONTINUE TO MONITOR.
--- NOTE | 2020-06-15 15:24 | NUR ---
OT NOTE: PT LIEING IN BED WITH KNEES PULLED UP TO CHEST. ASKED PT IF HE WOULD LIKE TO GET UP TO GO TO BATHROOM AND HE STATED YES. RETURNED TO ROOM WITH SOCKS, AND PT WAS ABLE TO NIKKI L SOCK WHILE SUPINE IN BED. REQUIRED ASSIST WITH R SOCK. BED MOB WITH MOD/MAX ASSIST. ATTEMPTED TO STAND BUT PT YELLED OUT WITH PAIN TO R LE. REQUESTED ASSIST FROM TECH.. MAX ASSIST X 2 FOR SIT TO STAND AND TRANSFER TO COMMODE. PT HAD SMALL BM; TOTAL ASSIST WITH HYGIENE; MAX X 2 TO RETURN TO BED. MOD ASSIST WITH SIT TO SUPINE. JOVITA NASH, OTR/L [phone]
[2020-06-15 16:13] VITALS: BP 85/52
[2020-06-15 19:51] VITALS: BP 86/49
[2020-06-16 04:44] VITALS: BP 94/56
[2020-06-16 05:15] LABS: BASOPHILS 0.4 % (0-2); EOSINOPHILS 3.8 % (0-7); HEMATOCRIT 35.2 % (42.0-54.0); HEMOGLOBIN 11.3 g/dL (13.5-17.5); IMMATURE GRANULOCYTES 0.1 % (0-5); LYMPHOCYTE ABS# 1.25 10x3/uL (1.32-3.57); LYMPHOCYTES 15.7 % (15-50); MCH 31.5 pg (26.0-34.0); MCHC 32.1 g/dL (31.0-37.0); MCV 98.1 fL (80.0-100.0); MEAN PLATELET VOLUME 9.6 fL (7.4-10.4); MONOCYTES 11.2 % (2-11); NEUTROPHIL ABS# 5.46 10x3/uL (1.78-5.38); NEUTROPHILS 68.8 % (40-80); PLATELET COUNT 527 10x3/uL (130-400); RBC 3.59 10x6/uL (4.20-6.10); RDW 13.7 % (11.5-14.5)
[2020-06-16 05:18] LABS: ANION GAP 14.6 mmol/L (8-16); CALCIUM 9.3 mg/dL (8.5-10.1); CARBON DIOXIDE 24.8 mmol/L (21.0-32.0); CREATININE - SERUM 1.2 mg/dL (0.6-1.3); POTASSIUM - SERUM 4.4 mmol/L (3.5-5.1)
[2020-06-16 05:23] LABS: WBC 7.9 10x3/uL (4.8-10.8)
--- NOTE | 2020-06-16 06:32 | NUR ---
pT HAD SON IN WITH HIM AT AND CHATTING. rEMAINS ALERT AND ORIENTED TO SELF AND PLEASANT AND COOPERATIVE WITH CARES. Has continued to deny pain/discomfort for the shift. No s/sx of same displayed. Pt continues to refuse use of SCD's but, does remain on Eliquis. Pt also refuses IS and tries but, can't follow directions well enough for same.
--- NOTE | 2020-06-16 07:27 | NUR ---
RECIEVED BEDSIDE REPORT. PATIENT IN BED RESTING. CONFUSED TO PLACE, TIME, AND SITUATION. BED LOW POSITION, CALL LIGHT IN REACH. WILL CONTINUE TO MONITOR.
--- NOTE | 2020-06-16 07:45 | MORECARE ---
CASE MANAGEMENT DISCHARGE SUMMARY PATIENT: RENE DUARTE UNIT: [id number] ADM DATE: 05/24/20 AGE: 79 : 42 SEX: M ROOM/BED: D.2202 AUTHOR: LM,DOC PHYSICIAN: REFERRING PHYSICIAN: JULIAN REIS MD DATE OF SERVICE: 06/16/20 Discharge Plan Patient Name: RENE DUARTE Facility: [facility]:[place] : 1940 Planned Disposition: Inpatient Rehab Anticipated Discharge Date: Discharge Date: Expected LOS: Initial Reviewer: [email or web address] Initial Review Date: 05/24/2020 Generated: 06/16/20 8:44 am Comments DCP- Discharge Planning Updated by [email or web address]: Jena Pacheco on 06/16/20 6:[address] Received a message from my partner Ema stating that the family called and they now want the patient to go to either [facility] or [facility] I will reach out to the today to see what her 1st choice is now DCP- Discharge Planning Updated by [email or web address]: Jena Pacheco on 06/15/20 10:[address] Spoke with Nicole at [facility], she will speak to about ferry terminal supervisor goals and then will come see the patient to assess id they can accept him. CM to follow and assist as needed DCP- Discharge Planning Updated by [id number]: Enrique Hennessy on 06/14/20 4:[address] CM team notified by [facility] that patient is not appropriate for admit. CM notified Katina Duarte ( of patient) that patient will not be able to admit to [facility]. CM discussed SNF for rehabilitation. Mrs. Duarte consents to [facility] for rehabilitation. REY telephonically signed and placed in chart. Clinicals faxed to [facility]. CM will continue to follow and will assist as needed with dc plans/needs. DCP- Discharge Planning Updated by [id number]: Enrique Hennessy on 06/13/20 10:[address] Received phone call from spouse of patient, Katina Duarte ([phone]) on 13 June 2020 at 0950. Mrs. Duarte stated that she is worried about bringing her home and would like for him to go to inpatient rehab before coming home. Mrs. Duarte stated that she takes care of grandchildren and cannot at 74 years old lift her . Mrs. Duarte expressed concern about her 's inappropriate behavior at times with undressing and "playing" with feces. Mrs. Duarte stated that he cannot be around the grandchildren if he continues that type of behavior. Mrs. Duarte further expressed concern about her 's lack of eating and the "bland" food at [facility]. CM informed Mrs. Duarte that a psych eval may be needed as well as placement in a SNF. Mrs. Duarte stated that she would like for her to go to Inpatient rehab "downstairs" and if he could not go there, then "...[facility]". REY telephonically signed and placed in chart. Mrs. Duarte stated that she would like to speak to the physician or FUR TINTER regarding her . CM informed Mrs. Duarte that her concerns will be discussed at IDT and the need to discuss SNF placement. Mrs. Duarte is not opposed to psych evaluation for her . DC IMM telephonically explained, signed, and placed on chart per current Isolation protocols. DC IMM will be delivered via certified mail. CM will continue to follow and will assist as needed with dc plans/needs. DCP- Discharge Planning Updated by [id number]: Jena Pacheco on 06/12/20 11:[address] SPOKE TO PATIENTS ABOUT REFERRAL TO [facility] AND SHE IS AGREEABLE TO THAT, I ALSO EXPLAINED TO HER THAT IF THEY DID NOT ACCPET HIM THAT SHE WOULD NEED TO GET WITH HER KIDS AND PICK A SKILLED FACILITY FOR A REFERRAL TO BE SENT TO . CM WILL SEND A REFERRAL TO [facility] DCP- Discharge Planning Updated by [id number]: Jena Pacheco on 06/11/20 12:[address] attempted to call patient's about her [facility] to see if this would be ok to send the referral [facility] is not going to accept him at this time. CM will tray again later at this time. DCP- Discharge Planning Updated by [id number]: Jena Pacheco on 06/04/20 4:[address] PATIENTS CALLED AND STATED THAT HE WILL NOT GO TO THE PSYCH UNIT DCP- Discharge Planning Updated by [id number]: Jena Pacheco on 06/01/20 9:[address] Patient Name: RENE DUARTE Admission Status: ER Accout number: [id number] Admission Date: 05-24-2020 : 1940 Admission Diagnosis:FRACTURE OF UNSP PART OF NECK OF RIGHT FEMUR, INIT Attending: JULIAN REIS Current LOS: 8 Anticipated DC Date: Planned Disposition: Inpatient Rehab Primary Insurance: MEDICARE A & B Discharge Planning Comments: CM met with patient 's over the phone to complete initial dc planning assessment. CM educated patient on the CM role and verbal consent given by patient to complete assessment. Patient lives at home with his spouse where he was independent with his care. His stated that he has not left his home in the past 7 months. 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 He had not needed any dme at home. She stated he has an ETOH problem and has since she has been to him. He sleeps on the couch at night. She would like for him to go to [facility] inpatient rehab when he is able to. He does not have a PCP, because he does not believe in MD's. She did make the comment that the patient has mentioned the that he has wanted to just . The reports he has been saying that for the past 3 years. I have not spoken with the patient, per NN he is confused and restrained. CM will continue to follow and will assist as needed with dc plans/needs. Tool And Die Supervisor: Jena Pacheco DCPIA - Discharge Planning Initial Assessment Updated by [email or web address]: Jena Pacheco on 06/01/20 10:35 am * Is the patient Alert and Oriented? Yes * How many steps to enter\\exit or inside your home? * PCP NONE * Pharmacy [facility] * Preadmission Environment Home with Family * ADLs Independent * Equipment None * List name and contact numbers for known caregivers / representatives who currently or will assist patient after discharge: KATINA ( ) [phone] * Verbal permission to speak to the caregivers and representatives has been obtained from the patient. N/A * Community resources currently utilized None * Additional services required to return to the preadmission environment? Yes * Can the patient safely return to the preadmission environment? No * Has this patient been hospitalized within the prior 30 days at any hospital? No Coverage Notice Reviewer: [id number] Wyatt Pacheco Notice Issued Date-Time: 06/01/2020 10:30 Notice Type: Patient Choice Letter Notice Delivered To: Family Member Relationship to Patient: Spouse Warehouse Shipping Clerk Name: katina Delivery Method: PHONE - Phone Days: Prior Verbal Notification: Yes Recipient Understood Notice: Recipient Signature: Med Rec Note Co-signed by Attending: Coverage Notice Comment: rey for inpatient rehab at [facility] per at [facility] Reviewer: [id number] Wyatt Hennessy Notice Issued Date-Time: 06/13/2020 9:50 Notice Type: Patient Choice Letter Notice Delivered To: Family Member Relationship to Patient: Spouse Warehouse Shipping Clerk Name: KATINA Delivery Method: PHONE - Phone Days: Prior Verbal Notification: Recipient Understood Notice: Yes Recipient Signature: Yes Med Rec Note Co-signed by Attending: Coverage Notice Comment: [facility] Reviewer: [id number] Wyatt Hennessy Notice Issued Date-Time: 06/13/2020 9:50 Notice Type: IM Discharge Notice Notice Delivered To: Family Member Relationship to Patient: Spouse Warehouse Shipping Clerk Name: KATINA Delivery Method: PHONE - Phone Days: Prior Verbal Notification: Recipient Understood Notice: Yes Recipient Signature: Yes Med Rec Note Co-signed by Attending: Coverage Notice Comment: DC IMM telephonically explained, signed, and placed on chart per current Isolation protocols. Last DP export: 06/15/20 10:51 am Patient Name: RENE DUARTE Page 37350 at 0745 All edits/amendments must be made on the electronic document DICTATION DATE: 06/16/20744 HORTICULTURE PROFESSOR: FLOR 06/16/20744 RPT#: [id number] DC DATE: STATUS: ADM IN [facility] [address] [place] [address] END OF REPORT
[2020-06-16 09:07] VITALS: BP 115/50
[2020-06-16 12:59] VITALS: BP 105/67
--- NOTE | 2020-06-16 15:12 | NUR ---
OT NOTE: SPOKE WITH PTS ON SEVERAL OCCASSIONS THIS AM. SHE HAS MANY QUESTIONS REGARDING PT STATUS; TESTS PERFORMED, AND DC PLANS. WANTS TO SPEAK WITH PHYSICIAN. ASKED AROUND AND HAS NOT MADE ROUNDS YET. INSTRUCTED PT TO REMAIN IN ROOM PHYSICIAN HAS NOT ROUNDED YET. PT SEEN IN PM; MAX ASSIST FOR SUPINE TO SIT; MAX ASSIST TO STAND; ABLE TO NIKKI L SOCK WITH SET UP; MOD ASSIST WITH R SOCK; MOD ASSIST WITH GOWN; SET UP FOR GROOMING AND COMBING HAIR. ATTEMPTED TO STAND AND AMBULATE WITH WALKER, HOWEVER, PT CRIES OUT WITH PAIN AND IMMEDIATELY SITS BACK DOWN. ATTEMPTS TO EXPLAIN SITUATION ARE UNSUCCESSFUL SECONDARY TO PTS DECREASED STM. JOVITA NASH, OTR/L [phone]
[2020-06-16 17:18] VITALS: BP 119/58
[2020-06-16 20:06] VITALS: BP 88/52
[2020-06-17 00:27] VITALS: BP 90/52
[2020-06-17 06:15] LABS: BASOPHILS 0.4 % (0-2); EOSINOPHILS 2.9 % (0-7); HEMATOCRIT 37.5 % (42.0-54.0); HEMOGLOBIN 12.2 g/dL (13.5-17.5); IMMATURE GRANULOCYTES 0.1 % (0-5); LYMPHOCYTE ABS# 1.57 10x3/uL (1.32-3.57); LYMPHOCYTES 23.1 % (15-50); MCH 31.7 pg (26.0-34.0); MCHC 32.5 g/dL (31.0-37.0); MCV 97.4 fL (80.0-100.0); MEAN PLATELET VOLUME 9.6 fL (7.4-10.4); MONOCYTES 8.7 % (2-11); NEUTROPHIL ABS# 4.39 10x3/uL (1.78-5.38); NEUTROPHILS 64.8 % (40-80); PLATELET COUNT 514 10x3/uL (130-400); RBC 3.85 10x6/uL (4.20-6.10); RDW 13.9 % (11.5-14.5); WBC 6.8 10x3/uL (4.8-10.8)
[2020-06-17 06:24] LABS: ANION GAP 12.6 mmol/L (8-16); CALCIUM 9.6 mg/dL (8.5-10.1); CARBON DIOXIDE 25.9 mmol/L (21.0-32.0); CREATININE - SERUM 1.1 mg/dL (0.6-1.3); POTASSIUM - SERUM 4.5 mmol/L (3.5-5.1)
--- NOTE | 2020-06-17 08:08 | NUR ---
REFERRAL SENT TO [facility]
[2020-06-17 08:12] VITALS: BP 90/53
--- NOTE | 2020-06-17 09:15 | MORECARE ---
CASE MANAGEMENT DISCHARGE SUMMARY PATIENT: RENE DUARTE UNIT: [id number] ADM DATE: 05/24/20 AGE: 79 : 42 SEX: M ROOM/BED: D.2202 AUTHOR: LM,DOC PHYSICIAN: REFERRING PHYSICIAN: JULIAN REIS MD DATE OF SERVICE: 06/17/20 Discharge Plan Patient Name: RENE DUARTE Facility: [facility]:[place] : 1940 Planned Disposition: Inpatient Rehab Anticipated Discharge Date: Discharge Date: Expected LOS: Initial Reviewer: [id number] Initial Review Date: 05/24/2020 Generated: 06/17/20 10:14 am Comments DCP- Discharge Planning Updated by [id number]: Jena Pacheco on 06/17/20 7:[address] REFERRAL SENT TO [facility] DCP- Discharge Planning Updated by [id number]: Jena Pacheco on 06/16/20 6:[address] Received a message from my partner Ema stating that the family called and they now want the patient to go to either [place] or [place], not [facility] I will reach out to the today to see what her 1st choice is now DCP- Discharge Planning Updated by [id number]: Jena Pacheco on 06/15/20 10:[address] Spoke with Nicole at [facility], she will speak to about rn long term care goals and then will come see the patient to assess id they can accept him. CM to follow and assist as needed DCP- Discharge Planning Updated by [id number]: Enrique Hennessy on 06/14/20 4:[address] CM team notified by [facility] that patient is not appropriate for admit. CM notified Katina Duarte ( of patient) that patient will not be able to admit to [facility]. CM discussed SNF for rehabilitation. Mrs. Duarte consents to [facility] for rehabilitation. REY telephonically signed and placed in chart. Clinicals faxed to [facility]. CM will continue to follow and will assist as needed with dc plans/needs. DCP- Discharge Planning Updated by [id number]: Enrique Hennessy on 06/13/20 10:[address] Received phone call from spouse of patient, Katina Duarte ([phone]) on 13 June 2020 at 0950. Mrs. Duarte stated that she is worried about bringing her home and would like for him to go to inpatient rehab before coming home. Mrs. Duarte stated that she takes care of grandchildren and cannot at 74 years old lift her . Mrs. Duarte expressed concern about her 's inappropriate behavior at times with undressing and "playing" with feces. Mrs. Duarte stated that he cannot be around the grandchildren if he continues that type of behavior. Mrs. Duarte further expressed concern about her 's lack of eating and the "bland" food at [facility]. CM informed Mrs. Duarte that a psych eval may be needed as well as placement in a SNF. Mrs. Duarte stated that she would like for her to go to Inpatient rehab "downstairs" and if he could not go there, then "...[facility] [address] [facility]". REY telephonically signed and placed in chart. Mrs. Duarte stated that she would like to speak to the physician or PRICE ECONOMIST regarding her . CM informed Mrs. Duarte that her concerns will be discussed at IDT and the need to discuss SNF placement. Mrs. Duarte is not opposed to psych evaluation for her . DC IMM telephonically explained, signed, and placed on chart per current Isolation protocols. DC IMM will be delivered via certified mail. CM will continue to follow and will assist as needed with dc plans/needs. DCP- Discharge Planning Updated by [id number]: Jena Pacheco on 06/12/20 11:[address] SPOKE TO PATIENTS ABOUT REFERRAL TO [facility] AND SHE IS AGREEABLE TO THAT, I ALSO EXPLAINED TO HER THAT IF THEY DID NOT ACCPET HIM THAT SHE WOULD NEED TO GET WITH HER KIDS AND PICK A SKILLED FACILITY FOR A REFERRAL TO BE SENT TO . CM WILL SEND A REFERRAL TO [facility] DCP- Discharge Planning Updated by [id number]: Jena Pacheco on 06/11/20 12:[address] attempted to call patient's about her [facility] to see if this would be ok to send the referral [facility] is not going to accept him at this time. CM will tray again later at this time. DCP- Discharge Planning Updated by [id number]: Jena Pacheco on 06/04/20 4:[address] PATIENTS CALLED AND STATED THAT HE WILL NOT GO TO THE PSYCH UNIT DCP- Discharge Planning Updated by [email or web address]: Jena Pacheco on 06/01/20 9:[address] Patient Name: RENE DUARTE Admission Status: ER Accout number: [id number] Admission Date: 05-24-2020 : 1940 Admission Diagnosis:FRACTURE OF UNSP PART OF NECK OF RIGHT FEMUR, INIT Attending: JULIAN REIS Current LOS: 8 Anticipated DC Date: Planned Disposition: Inpatient Rehab Primary Insurance: MEDICARE A & B Discharge Planning Comments: CM met with patient 's over the phone to complete initial dc planning assessment. CM educated patient on the CM role and verbal consent given by patient to complete assessment. Patient lives at home with his spouse where he was independent with his care. His stated that he has not left his home in the past 7 months. 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 He had not needed any dme at home. She stated he has an ETOH problem and has since she has been to him. He sleeps on the couch at night. She would like for him to go to [facility] inpatient rehab when he is able to. He does not have a PCP, because he does not believe in MD's. She did make the comment that the patient has mentioned the that he has wanted to just . The reports he has been saying that for the past 3 years. I have not spoken with the patient, per NN he is confused and restrained. CM will continue to follow and will assist as needed with dc plans/needs. Wood Block Artist: Jena Pacheco DCPIA - Discharge Planning Initial Assessment Updated by [id number]: Jena Pacheco on 06/01/20 10:35 am * Is the patient Alert and Oriented? Yes * How many steps to enter\\exit or inside your home? * PCP NONE * Pharmacy [facility] * Preadmission Environment Home with Family * ADLs Independent * Equipment None * List name and contact numbers for known caregivers / representatives who currently or will assist patient after discharge: KATINA ( ) [phone] * Verbal permission to speak to the caregivers and representatives has been obtained from the patient. N/A * Community resources currently utilized None * Additional services required to return to the preadmission environment? Yes * Can the patient safely return to the preadmission environment? No * Has this patient been hospitalized within the prior 30 days at any hospital? No External Providers External Provider: [facility] Next Contact Date: Service Request Date: Service Type: Resolution: Reviewer: Comments: Coverage Notice Reviewer: [id number] Wyatt Pacheco Notice Issued Date-Time: 06/01/2020 10:30 Notice Type: Patient Choice Letter Notice Delivered To: Family Member Relationship to Patient: Spouse Computer Systems Administrator Name: katina Delivery Method: PHONE - Phone Days: Prior Verbal Notification: Yes Recipient Understood Notice: Recipient Signature: Med Rec Note Co-signed by Attending: Coverage Notice Comment: rey for inpatient rehab at [facility] per at [facility] Reviewer: [id number] Wyatt Hennessy Notice Issued Date-Time: 06/13/2020 9:50 Notice Type: Patient Choice Letter Notice Delivered To: Family Member Relationship to Patient: Spouse Computer Systems Administrator Name: KATINA Delivery Method: PHONE - Phone Days: Prior Verbal Notification: Recipient Understood Notice: Yes Recipient Signature: Yes Med Rec Note Co-signed by Attending: Coverage Notice Comment: [facility] Reviewer: [id number] Wyatt Hennessy Notice Issued Date-Time: 06/13/2020 9:50 Notice Type: IM Discharge Notice Notice Delivered To: Family Member Relationship to Patient: Spouse Computer Systems Administrator Name: KATINA Delivery Method: PHONE - Phone Days: Prior Verbal Notification: Recipient Understood Notice: Yes Recipient Signature: Yes Med Rec Note Co-signed by Attending: Coverage Notice Comment: DC IMM telephonically explained, signed, and placed on chart per current Isolation protocols. Last DP export: 06/16/20 6:45 am Patient Name: RENE DUARTE Page 98525 at 0915 All edits/amendments must be made on the electronic document DICTATION DATE: 06/17/20913 CHANNEL BUSINESS MANAGER: FLOR 06/17/20913 RPT#: [id number] DC DATE: STATUS: ADM IN [facility] [address] [place] [address] END OF REPORT
--- NOTE | 2020-06-17 09:37 | NUR ---
REACHED OUT TO KHADIJAH AND LEFT MESSAGE FOR ARMINDA ABOUT THE REFERRAL
--- NOTE | 2020-06-17 09:43 | MORECARE ---
CASE MANAGEMENT DISCHARGE SUMMARY PATIENT: RENE DUARTE UNIT: [id number] ADM DATE: 05/24/20 AGE: 79 : 44 SEX: M ROOM/BED: D.2202 AUTHOR: LM,DOC PHYSICIAN: REFERRING PHYSICIAN: JULIAN REIS MD DATE OF SERVICE: 06/17/20 Discharge Plan Patient Name: RENE DUARTE Facility: [facility]:[place] : 1940 Planned Disposition: Inpatient Rehab Anticipated Discharge Date: Discharge Date: Expected LOS: Initial Reviewer: [email or web address] Initial Review Date: 05/24/2020 Generated: 06/17/20 10:42 am Comments DCP- Discharge Planning Updated by [id number]: Jena Pacheco on 06/17/20 8:[address] REACHED OUT TO [facility] AND LEFT MESSAGE FOR ARMINDA ABOUT THE REFERRAL DCP- Discharge Planning Updated by [id number]: Jena Pacheco on 06/17/20 7:[address] REFERRAL SENT TO [facility] DCP- Discharge Planning Updated by [id number]: Jena Pacheco on 06/16/20 6:[address] Received a message from my partner Ema stating that the family called and they now want the patient to go to either [place] or [place], not [facility] I will reach out to the today to see what her 1st choice is now DCP- Discharge Planning Updated by [id number]: Jena Pacheco on 06/15/20 10:[address] Spoke with Nicole at [facility], she will speak to about chcf goals and then will come see the patient to assess id they can accept him. CM to follow and assist as needed DCP- Discharge Planning Updated by [id number]: Enrique Hennessy on 06/14/20 4:[address] CM team notified by Joy that patient is not appropriate for admit. CM notified Katina Duarte ( of patient) that patient will not be able to admit to [facility]. CM discussed SNF for rehabilitation. Mrs. Duarte consents to [facility] for rehabilitation. JOSE RAUL telephonically signed and placed in chart. Clinicals faxed to [facility]. CM will continue to follow and will assist as needed with dc plans/needs. DCP- Discharge Planning Updated by [id number]: Enrique Hennessy on 06/13/20 10:[address] Received phone call from spouse of patient, Katina Duarte ([phone]) on 13 June 2020 at 0950. Mrs. Duarte stated that she is worried about bringing her home and would like for him to go to inpatient rehab before coming home. Mrs. Duarte stated that she takes care of grandchildren and cannot at 74 years old lift her . Mrs. Duarte expressed concern about her 's inappropriate behavior at times with undressing and "playing" with feces. Mrs. Duarte stated that he cannot be around the grandchildren if he continues that type of behavior. Mrs. Duarte further expressed concern about her 's lack of eating and the "bland" food at [facility]. CM informed Mrs. Duarte that a psych eval may be needed as well as placement in a SNF. Mrs. Duarte stated that she would like for her to go to Inpatient rehab "downstairs" and if he could not go there, then "...across [facility] on [facility]". JOSE RAUL telephonically signed and placed in chart. Mrs. Duarte stated that she would like to speak to the physician or PRETZEL PACKER regarding her . CM informed Mrs. Duarte that her concerns will be discussed at IDT and the need to discuss SNF placement. Mrs. Duarte is not opposed to psych evaluation for her . DC IMM telephonically explained, signed, and placed on chart per current Isolation protocols. DC IMM will be delivered via certified mail. CM will continue to follow and will assist as needed with dc plans/needs. DCP- Discharge Planning Updated by [email or web address]: Jena Pacheco on 06/12/20 11:[address] SPOKE TO PATIENTS ABOUT REFERRAL TO [facility] REHAB AND SHE IS AGREEABLE TO THAT, I ALSO EXPLAINED TO HER THAT IF THEY DID NOT ACCPET HIM THAT SHE WOULD NEED TO GET WITH HER KIDS AND PICK A SKILLED FACILITY FOR A REFERRAL TO BE SENT TO . CM WILL SEND A REFERRAL TO [facility] DCP- Discharge Planning Updated by [email or web address]: Jena Pacheco on 06/11/20 12:[address] attempted to call patient's about her [facility] to see if this would be ok to send the referral [facility] is not going to accept him at this time. CM will tray again later at this time. DCP- Discharge Planning Updated by [id number]: Jena Pacheco on 06/04/20 4:[address] PATIENTS CALLED AND STATED THAT HE WILL NOT GO TO THE PSYCH UNIT DCP- Discharge Planning Updated by [email or web address]: Jena Pacheco on 06/01/20 9:[address] Patient Name: RENE DUARTE Admission Status: ER Accout number: [id number] Admission Date: 05-24-2020 : 1940 Admission Diagnosis:FRACTURE OF UNSP PART OF NECK OF RIGHT FEMUR, INIT Attending: JULIAN REIS Current LOS: 8 Anticipated DC Date: Planned Disposition: Inpatient Rehab Primary Insurance: MEDICARE A & B Discharge Planning Comments: CM met with patient 's over the phone to complete initial dc planning assessment. CM educated patient on the CM role and verbal consent given by patient to complete assessment. Patient lives at home with his spouse where he was independent with his care. His stated that he has not left his home in the past 7 months. 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 He had not needed any dme at home. She stated he has an ETOH problem and has since she has been to him. He sleeps on the couch at night. She would like for him to go to [facility] inpatient rehab when he is able to. He does not have a PCP, because he does not believe in MD's. She did make the comment that the patient has mentioned the that he has wanted to just . The reports he has been saying that for the past 3 years. I have not spoken with the patient, per NN he is confused and restrained. CM will continue to follow and will assist as needed with dc plans/needs. Edge Plugger: Jena Pacheco DCPIA - Discharge Planning Initial Assessment Updated by [email or web address]: Jena Pacheco on 06/01/20 10:35 am * Is the patient Alert and Oriented? Yes * How many steps to enter\\exit or inside your home? * PCP NONE * Pharmacy [facility] * Preadmission Environment Home with Family * ADLs Independent * Equipment None * List name and contact numbers for known caregivers / representatives who currently or will assist patient after discharge: KATINA ( ) [phone] * Verbal permission to speak to the caregivers and representatives has been obtained from the patient. N/A * Community resources currently utilized None * Additional services required to return to the preadmission environment? Yes * Can the patient safely return to the preadmission environment? No * Has this patient been hospitalized within the prior 30 days at any hospital? No Coverage Notice Reviewer: [id number] Wyatt Pacheco Notice Issued Date-Time: 06/01/2020 10:30 Notice Type: Patient Choice Letter Notice Delivered To: Family Member Relationship to Patient: Spouse Heel Compressor Name: katina Delivery Method: PHONE - Phone Days: Prior Verbal Notification: Yes Recipient Understood Notice: Recipient Signature: Med Rec Note Co-signed by Attending: Coverage Notice Comment: jose raul for inpatient rehab at [facility] per at [facility] Reviewer: [id number] Wyatt Hennessy Notice Issued Date-Time: 06/13/2020 9:50 Notice Type: Patient Choice Letter Notice Delivered To: Family Member Relationship to Patient: Spouse Heel Compressor Name: KATINA Delivery Method: PHONE - Phone Days: Prior Verbal Notification: Recipient Understood Notice: Yes Recipient Signature: Yes Med Rec Note Co-signed by Attending: Coverage Notice Comment: [facility] Reviewer: [id number] Wyatt Hennessy Notice Issued Date-Time: 06/13/2020 9:50 Notice Type: IM Discharge Notice Notice Delivered To: Family Member Relationship to Patient: Spouse Heel Compressor Name: KATINA Delivery Method: PHONE - Phone Days: Prior Verbal Notification: Recipient Understood Notice: Yes Recipient Signature: Yes Med Rec Note Co-signed by Attending: Coverage Notice Comment: DC IMM telephonically explained, signed, and placed on chart per current Isolation protocols. Last DP export: 06/17/20 8:15 a Patient Name: RENE DUARTE Page [phone] at 0943 All edits/amendments must be made on the electronic document DICTATION DATE: 03/10/21 0943 ORCHARDIST: FLOR 06/17/20942 RPT#: [id number] DC DATE: STATUS: ADM IN [facility] [address] [place] [address] END OF REPORT
--- NOTE | 2020-06-17 10:29 | NUR ---
0700 - RECEIVED PATIENT FROM OFFGOING NURSE RESTING QUIETLY IN BED WITH KNEES BENT, NO S/SX OF DISTRESS NOTED AT THIS TIME. WILL CONTINUE TO MONITOR.
[2020-06-17 12:24] VITALS: BP 95/63
--- NOTE | 2020-06-17 13:00 | NUR ---
Nutrition follow-up/reassessment: Diet order: regular mechanical soft with thin liquids PO intake continues to be poor even with feeding assistance Labs reviewed +BM Nutrition diagnosis: Pt now assessed with severe malnutrition of acute illness R/T hip fracture AEB the following criteria: - Pt with charted 14% weight loss since admit (150# on admit - now 129#) - BMI: 20.2 - < 50% intake of estimated energy needs for > 2 weeks Pt continues with poor po intake. Recommendations: Nutrition support will start - NGT for short-term TF vs PEG tube placement for long-term TF due to pts severe malnutrition and continued poor po intake. May consider an appetite stimulant' RDN follow-up: 06/19/20
--- NOTE | 2020-06-17 13:23 | MORECARE ---
CASE MANAGEMENT DISCHARGE SUMMARY PATIENT: RENE DUARTE UNIT: [id number] ADM DATE: 05/24/20 AGE: 79 : 42 SEX: M ROOM/BED: D.2202 AUTHOR: LMDOC PHYSICIAN: REFERRING PHYSICIAN: JULIAN REIS MD DATE OF SERVICE: 06/17/20 Discharge Plan Patient Name: RENE DUARTE Facility: [facility]:[place] : 1940 Planned Disposition: Inpatient Rehab Anticipated Discharge Date: Discharge Date: Expected LOS: Initial Reviewer: [id number] Initial Review Date: 05/24/2020 Generated: 06/17/20 2:22 pm Comments DCP- Discharge Planning Updated by [email or web address]: Jena Pacheco on 06/17/20 12:[address] Linda with [facility] stated that they were not going to be able to accept him. I will send the referral to [place]. DCP- Discharge Planning Updated by [email or web address]: Jena Pacheco on 06/17/20 8:[address] REACHED OUT TO [facility] AND LEFT MESSAGE FOR LINDA ABOUT THE REFERRAL DCP- Discharge Planning Updated by [id number]: Jena Pacheco on 06/17/20 7:[address] REFERRAL SENT TO [facility] SNF DCP- Discharge Planning Updated by [id number]: Jena Pacheco on 06/16/20 6:[address] Received a message from my partner Ema stating that the family called and they now want the patient to go to either [place] or [place], not [facility] I will reach out to the today to see what her 1st choice is now DCP- Discharge Planning Updated by [id number]: Jena Pacheco on 06/15/20 10:[address] Spoke with Nicole at [facility], she will speak to about terminal worker goals and then will come see the patient to assess id they can accept him. CM to follow and assist as needed DCP- Discharge Planning Updated by [email or web address]: Enrique Hennessy on 06/14/20 4:[address] CM team notified by [facility] that patient is not appropriate for admit. CM notified Katina Duarte ( of patient) that patient will not be able to admit to [facility]. CM discussed SNF for rehabilitation. Mrs. Duarte consents to [facility] for rehabilitation. JOSE RAUL telephonically signed and placed in chart. Clinicals faxed to [facility]. CM will continue to follow and will assist as needed with dc plans/needs. DCP- Discharge Planning Updated by [id number]: Enrique Hennessy on 06/13/20 10:[address] Received phone call from spouse of patient, Katina Duarte ([phone]) on 13 June 2020 at 0950. Mrs. Duarte stated that she is worried about bringing her home and would like for him to go to inpatient rehab before coming home. Mrs. Duarte stated that she takes care of grandchildren and cannot at 74 years old lift her . Mrs. Duarte expressed concern about her 's inappropriate behavior at times with undressing and "playing" with feces. Mrs. Duarte stated that he cannot be around the grandchildren if he continues that type of behavior. Mrs. Duarte further expressed concern about her 's lack of eating and the "bland" food at [facility]. CM informed Mrs. Duarte that a psych eval may be needed as well as placement in a SNF. Mrs. Duarte stated that she would like for her to go to Inpatient rehab "downstairs" and if he could not go there, then "...across [facility]". JOSE RAUL telephonically signed and placed in chart. Mrs. Duarte stated that she would like to speak to the physician or WALLCOVERING TEXTURER regarding her . CM informed Mrs. Duarte that her concerns will be discussed at IDT and the need to discuss SNF placement. Mrs. Duarte is not opposed to psych evaluation for her . DC IMM telephonically explained, signed, and placed on chart per current Isolation protocols. DC IMM will be delivered via certified mail. CM will continue to follow and will assist as needed with dc plans/needs. DCP- Discharge Planning Updated by [email or web address]: Jena Pacheco on 06/12/20 11:[address] SPOKE TO PATIENTS ABOUT REFERRAL TO [facility], [facility] REHAB AND SHE IS AGREEABLE TO THAT, I ALSO EXPLAINED TO HER THAT IF THEY DID NOT ACCPET HIM THAT SHE WOULD NEED TO GET WITH HER KIDS AND PICK A SKILLED FACILITY FOR A REFERRAL TO BE SENT TO . CM WILL SEND A REFERRAL TO [facility] INPATIENT REHAB DCP- Discharge Planning Updated by [id number]: Jena Pacheco on 06/11/20 12:[address] attempted to call patient's about her [facility] to see if this would be ok to send the referral [facility] is not going to accept him at this time. CM will tray again later at this time. DCP- Discharge Planning Updated by [id number]: Jena Pacheco on 06/04/20 4:[address] PATIENTS CALLED AND STATED THAT HE WILL NOT GO TO THE PSYCH UNIT DCP- Discharge Planning Updated by [email or web address]: Jena Pacheco on 06/01/20 9:[address] Patient Name: RENE DUARTE Admission Status: ER Accout number: [id number] Admission Date: 05-24-2020 : 1940 Admission Diagnosis:FRACTURE OF UNSP PART OF NECK OF RIGHT FEMUR, INIT Attending: JULIAN REIS Current LOS: 8 Anticipated DC Date: Planned Disposition: Inpatient Rehab Primary Insurance: MEDICARE A & B Discharge Planning Comments: CM met with patient 's over the phone to complete initial dc planning assessment. CM educated patient on the CM role and verbal consent given by patient to complete assessment. Patient lives at home with his spouse where he was independent with his care. His stated that he has not left his home in the past 7 months. 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 He had not needed any dme at home. She stated he has an ETOH problem and has since she has been to him. He sleeps on the couch at night. She would like for him to go to [facility] inpatient rehab when he is able to. He does not have a PCP, because he does not believe in MD's. She did make the comment that the patient has mentioned the that he has wanted to just . The reports he has been saying that for the past 3 years. I have not spoken with the patient, per NN he is confused and restrained. CM will continue to follow and will assist as needed with dc plans/needs. Tapper Bit: Jena Pacheco DCPIA - Discharge Planning Initial Assessment Updated by [id number]: Jena Pacheco on 06/01/20 10:35 am * Is the patient Alert and Oriented? Yes * How many steps to enter\\exit or inside your home? * PCP NONE * Pharmacy [facility] * Preadmission Environment Home with Family * ADLs Independent * Equipment None * List name and contact numbers for known caregivers / representatives who currently or will assist patient after discharge: KATINA ( ) [phone] * Verbal permission to speak to the caregivers and representatives has been obtained from the patient. N/A * Community resources currently utilized None * Additional services required to return to the preadmission environment? Yes * Can the patient safely return to the preadmission environment? No * Has this patient been hospitalized within the prior 30 days at any hospital? No Coverage Notice Reviewer: [id number] - Jena Pacheco Notice Issued Date-Time: 06/01/2020 10:30 Notice Type: Patient Choice Letter Notice Delivered To: Family Member Relationship to Patient: Spouse Log Scaler Name: katina Delivery Method: PHONE - Phone Days: Prior Verbal Notification: Yes Recipient Understood Notice: Recipient Signature: Med Rec Note Co-signed by Attending: Coverage Notice Comment: jose raul for inpatient rehab at [facility] per at [facility] Reviewer: [id number] Wyatt Hennessy Notice Issued Date-Time: 06/13/2020 9:50 Notice Type: Patient Choice Letter Notice Delivered To: Family Member Relationship to Patient: Spouse Log Scaler Name: KATINA Delivery Method: PHONE - Phone Days: Prior Verbal Notification: Recipient Understood Notice: Yes Recipient Signature: Yes Med Rec Note Co-signed by Attending: Coverage Notice Comment: [facility] Reviewer: [id number] Wyatt Hennessy Notice Issued Date-Time: 06/13/2020 9:50 Notice Type: IM Discharge Notice Notice Delivered To: Family Member Relationship to Patient: Spouse Log Scaler Name: KATINA Delivery Method: PHONE - Phone Days: Prior Verbal Notification: Recipient Understood Notice: Yes Recipient Signature: Yes Med Rec Note Co-signed by Attending: Coverage Notice Comment: DC IMM telephonically explained, signed, and placed on chart per current Isolation protocols. Last DP export: 06/17/20 8:43 a Patient Name: RENE DUARTE Page [phone] at 1323 All edits/amendments must be made on the electronic document DICTATION DATE: 06/17/201321 BRAINER: FLOR 06/17/201321 RPT#: [id number] DC DATE: STATUS: ADM IN [facility] [address] [place] [address] END OF REPORT
--- NOTE | 2020-06-17 14:20 | MORECARE ---
CASE MANAGEMENT DISCHARGE SUMMARY PATIENT: RENE DUARTE UNIT: [id number] ADM DATE: 05/24/20 AGE: 79 : 42 SEX: M ROOM/BED: D.2202 AUTHOR: LM,DOC PHYSICIAN: REFERRING PHYSICIAN: JULIAN REIS MD DATE OF SERVICE: 06/17/20 Discharge Plan Patient Name: RENE DUARTE Facility: [facility]:[place] : 1940 Planned Disposition: Inpatient Rehab Anticipated Discharge Date: Discharge Date: Expected LOS: Initial Reviewer: [email or web address] Initial Review Date: 05/24/2020 Generated: 06/17/20 3:19 pm Comments DCP- Discharge Planning Updated by [id number]: Jena Pacheco on 06/17/20 1:[address] [facility] CALLED AND IS REVIEWING HIS CHART AND WILL GET BACK ME DCP- Discharge Planning Updated by [id number]: Jena Pacheco on 06/17/20 12:[address] [facility] stated that they were not going to be able to accept him. I will send the referral to [place]. DCP- Discharge Planning Updated by [id number]: Jena Pacheco on 06/17/20 8:[address] REACHED OUT TO [facility] AND LEFT MESSAGE FOR LINDA ABOUT THE REFERRAL DCP- Discharge Planning Updated by [id number]: Jena Pacheco on 06/17/20 7:[address] REFERRAL SENT TO [facility] DCP- Discharge Planning Updated by [id number]: Jena Pacheco on 06/16/20 6:[address] Received a message from my partner Ema stating that the family called and they now want the patient to go to either [place] or [place], not [facility] I will reach out to the today to see what her 1st choice is now DCP- Discharge Planning Updated by [email or web address]: Jena Pacheco on 06/15/20 10:[address] Spoke with Nicole at [facility], she will speak to about manager intermediate goals and then will come see the patient to assess id they can accept him. CM to follow and assist as needed DCP- Discharge Planning Updated by [id number]: Enrique Hennessy on 06/14/20 4:[address] CM team notified by [facility] that patient is not appropriate for admit. CM notified Katina Duarte ( of patient) that patient will not be able to admit to [facility]. CM discussed SNF for rehabilitation. Mrs. Duarte consents to [facility] for rehabilitation. JOSE RAUL telephonically signed and placed in chart. Clinicals faxed to [facility]. CM will continue to follow and will assist as needed with dc plans/needs. DCP- Discharge Planning Updated by [email or web address]: Enrique Hennessy on 06/13/20 10:[address] Received phone call from spouse of patient, Katina Duarte ([phone]) on 13 June 2020 at 0997. Mrs. Duarte stated that she is worried about bringing her home and would like for him to go to inpatient rehab before coming home. Mrs. Duarte stated that she takes care of grandchildren and cannot at 74 years old lift her . Mrs. Duarte expressed concern about her 's inappropriate behavior at times with undressing and "playing" with feces. Mrs. Duarte stated that he cannot be around the grandchildren if he continues that type of behavior. Mrs. Duarte further expressed concern about her 's lack of eating and the "bland" food at [facility]. CM informed Mrs. Duarte that a psych eval may be needed as well as placement in a SNF. Mrs. Duarte stated that she would like for her to go to Inpatient rehab "downstairs" and if he could not go there, then "...across [facility] on [facility]". JOSE RAUL telephonically signed and placed in chart. Mrs. Duarte stated that she would like to speak to the physician or CLINICAL RESEARCH TECH regarding her . CM informed Mrs. Duarte that her concerns will be discussed at IDT and the need to discuss SNF placement. Mrs. Duarte is not opposed to psych evaluation for her . DC IMM telephonically explained, signed, and placed on chart per current Isolation protocols. DC IMM will be delivered via certified mail. CM will continue to follow and will assist as needed with dc plans/needs. DCP- Discharge Planning Updated by [email or web address]: Jena Pacheco on 06/12/20 11:[address] SPOKE TO PATIENTS ABOUT REFERRAL TO [facility] AND SHE IS AGREEABLE TO THAT, I ALSO EXPLAINED TO HER THAT IF THEY DID NOT ACCPET HIM THAT SHE WOULD NEED TO GET WITH HER KIDS AND PICK A SKILLED FACILITY FOR A REFERRAL TO BE SENT TO . CM WILL SEND A REFERRAL TO [facility]IENT [facility] DCP- Discharge Planning Updated by [id number]: Jena Pacheco on 06/11/20 12:[address] attempted to call patient's about her [facility] to see if this would be ok to send the referral [facility] is not going to accept him at this time. CM will tray again later at this time. DCP- Discharge Planning Updated by [id number]: Jena Pacheco on 06/04/20 4:[address] PATIENTS CALLED AND STATED THAT HE WILL NOT GO TO THE PSYCH UNIT DCP- Discharge Planning Updated by [id number]: Jena Pacheco on 06/01/20 9:[address] Patient Name: RENE DUARTE Admission Status: ER Accout number: [id number] Admission Date: 05-24-2020 : 1940 Admission Diagnosis:FRACTURE OF UNSP PART OF NECK OF RIGHT FEMUR, INIT Attending: JULIAN REIS Current LOS: 8 Anticipated DC Date: Planned Disposition: Inpatient Rehab Primary Insurance: MEDICARE A & B Discharge Planning Comments: CM met with patient 's over the phone to complete initial dc planning assessment. CM educated patient on the CM role and verbal consent given by patient to complete assessment. Patient lives at home with his spouse where he was independent with his care. His stated that he has not left his home in the past 7 months. 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 He had not needed any dme at home. She stated he has an ETOH problem and has since she has been to him. He sleeps on the couch at night. She would like for him to go to [facility] inpatient rehab when he is able to. He does not have a PCP, because he does not believe in MD's. She did make the comment that the patient has mentioned the that he has wanted to just . The reports he has been saying that for the past 3 years. I have not spoken with the patient, per NN he is confused and restrained. CM will continue to follow and will assist as needed with dc plans/needs. Bilingual Customer Service: Jena Pacheco DCPIA - Discharge Planning Initial Assessment Updated by [id number]: Jena Pacheco on 06/01/20 10:35 am * Is the patient Alert and Oriented? Yes * How many steps to enter\\exit or inside your home? * PCP NONE * Pharmacy [facility] * Preadmission Environment Home with Family * ADLs Independent * Equipment None * List name and contact numbers for known caregivers / representatives who currently or will assist patient after discharge: KATINA ( ) [phone] * Verbal permission to speak to the caregivers and representatives has been obtained from the patient. N/A * Community resources currently utilized None * Additional services required to return to the preadmission environment? Yes * Can the patient safely return to the preadmission environment? No * Has this patient been hospitalized within the prior 30 days at any hospital? No Coverage Notice Reviewer: [id number] - Jena Pacheco Notice Issued Date-Time: 06/01/2020 10:30 Notice Type: Patient Choice Letter Notice Delivered To: Family Member Relationship to Patient: Spouse Obstetrics Nurse Name: katina Delivery Method: PHONE - Phone Days: Prior Verbal Notification: Yes Recipient Understood Notice: Recipient Signature: Med Rec Note Co-signed by Attending: Coverage Notice Comment: jose raul for inpatient rehab at [facility] per at [facility] Reviewer: [id number] Wyatt Hennessy Notice Issued Date-Time: 06/13/2020 9:50 Notice Type: Patient Choice Letter Notice Delivered To: Family Member Relationship to Patient: Spouse Obstetrics Nurse Name: KATINA Delivery Method: PHONE - Phone Days: Prior Verbal Notification: Recipient Understood Notice: Yes Recipient Signature: Yes Med Rec Note Co-signed by Attending: Coverage Notice Comment: [facility] Reviewer: [id number] Wyatt Hennessy Notice Issued Date-Time: 06/13/2020 9:50 Notice Type: IM Discharge Notice Notice Delivered To: Family Member Relationship to Patient: Spouse Obstetrics Nurse Name: KATINA Delivery Method: PHONE - Phone Days: Prior Verbal Notification: Recipient Understood Notice: Yes Recipient Signature: Yes Med Rec Note Co-signed by Attending: Coverage Notice Comment: DC IMM telephonically explained, signed, and placed on chart per current Isolation protocols. Last DP export: 06/17/20 12:23 p Patient Name: RENE DUARTE Page [id number] at 1420 All edits/amendments must be made on the electronic document DICTATION DATE: 06/17/201418 SULFUR CHLORIDE OPERATOR: FLOR 06/17/201418 RPT#: [id number] DC DATE: STATUS: ADM IN [facility] [address] [place] [address] END OF REPORT
--- NOTE | 2020-06-17 16:48 | NUR ---
OT NOTE: EXTENSIVE ENCOURAGEMENT TO ATTEMPT TO HAVE PT TRANSFER TO BS COMMODE; PT INITIATES MOVEMENT BUT WHEN R HIP BEGINS TO HURT, HE STOPS, AND BECOMES FRUSTRATED WHEN THERAPIST ATTEMPTS TO ASSIST. ASSISTED PT TO EOB WITH MOD ASSIST. TOLERATED SITTING ON EOB FOR SEVERAL MIN; SEVERAL ATTEMPTS TO SIT TO STAND BUT UNABLE TO PERFORM TODAY. PERFORMED PERINEAL CARE FOR PT HE HAD A SMALL BM; PROVIDED WASHCLOTH FOR PT TO CLEAN NAILS BUT REQUIRED MAX ASSIST FOR THOROUGH CLEANING. PT WAS ABLE TO NIKKI SOCKS TODAY WHILE IN SUPINE POSITION IN BED. JOVITA NASH, OTR/L [phone]
[2020-06-17 17:04] VITALS: BP 82/56
[2020-06-17 20:18] VITALS: BP 88/60
--- NOTE | 2020-06-17 22:50 | NUR ---
REC'D WALKING ROUNDS CHGE. OF SHIFT IN BED AT BEDSIDE.BED ARMED NEUROVASCULAR STATUS TO RIGHT HIP WNL WILL CONTINUE TO MONITOR FOR ANY CHGES NEUROVASCULAR STATUS AND FOLLOW CURRENT PLAN OF CARE.
[2020-06-18 00:29] VITALS: BP 84/65
[2020-06-18 04:00] VITALS: BP 90/56
[2020-06-18 06:55] LABS: BASOPHILS 0.4 % (0-2); EOSINOPHILS 3.2 % (0-7); HEMATOCRIT 37.9 % (42.0-54.0); IMMATURE GRANULOCYTES 0.1 % (0-5); LYMPHOCYTE ABS# 1.47 10x3/uL (1.32-3.57); LYMPHOCYTES 20.4 % (15-50); MCH 31.2 pg (26.0-34.0); MCHC 31.7 g/dL (31.0-37.0); MCV 98.4 fL (80.0-100.0); MEAN PLATELET VOLUME 9.8 fL (7.4-10.4); MONOCYTES 5.7 % (2-11); NEUTROPHIL ABS# 5.07 10x3/uL (1.78-5.38); NEUTROPHILS 70.2 % (40-80); PLATELET COUNT 478 10x3/uL (130-400); RBC 3.85 10x6/uL (4.20-6.10); WBC 7.2 10x3/uL (4.8-10.8)
[2020-06-18 07:15] LABS: ANION GAP 13.9 mmol/L (8-16); CALCIUM 9.4 mg/dL (8.5-10.1); CREATININE - SERUM 1.1 mg/dL (0.6-1.3); POTASSIUM - SERUM 4.9 mmol/L (3.5-5.1)
[2020-06-18 08:31] VITALS: BP 143/68
--- NOTE | 2020-06-18 09:34 | MORECARE ---
CASE MANAGEMENT DISCHARGE SUMMARY PATIENT: RENE DUARTE UNIT: [id number] ADM DATE: 05/24/20 AGE: 79 : 42 SEX: M ROOM/BED: D.2202 AUTHOR: LM,DOC PHYSICIAN: REFERRING PHYSICIAN: JULIAN REIS MD DATE OF SERVICE: 06/18/20 Discharge Plan Patient Name: RENE DUARTE Facility: [facility]:[place] : 1940 Planned Disposition: Inpatient Rehab Anticipated Discharge Date: Discharge Date: Expected LOS: Initial Reviewer: [id number] Initial Review Date: 05/24/2020 Generated: 06/18/20 10:34 am Comments DCP- Discharge Planning Updated by [email or web address]: Jena Pacheco on 06/18/20 8:[address] [facility] CALLED AND STATED THAT THEY WILL ACCEPT THE PATIENT, WILL LET MD KNOW CM TO FOLLOW AND ASSIST NEEDED DCP- Discharge Planning Updated by [id number]: Jena Pacheco on 06/17/20 1:[address] [facility] CALLED AND IS REVIEWING HIS CHART AND WILL GET BACK ME DCP- Discharge Planning Updated by [id number]: Jena Pacheco on 06/17/20 12:[address] [facility] stated that they were not going to be able to accept him. I will send the referral to [place]. DCP- Discharge Planning Updated by [email or web address]: Jena Pacheco on 06/17/20 8:[address] REACHED OUT TO [facility] AND LEFT MESSAGE FOR LINDA ABOUT THE REFERRAL DCP- Discharge Planning Updated by [email or web address]: Jena Pacheco on 06/17/20 7:[address] REFERRAL SENT TO [facility] DCP- Discharge Planning Updated by [id number]: Jena Pacheco on 06/16/20 6:[address] Received a message from my partner Ema stating that the family called and they now want the patient to go to either [place] or [place], not [facility] I will reach out to the today to see what her 1st choice is now DCP- Discharge Planning Updated by [id number]: Jena Pacheco on 06/15/20 10:[address] Spoke with Nicole at [facility], she will speak to about termite control service representative goals and then will come see the patient to assess id they can accept him. CM to follow and assist as needed DCP- Discharge Planning Updated by [id number]: Enrique Hennessy on 06/14/20 4:[address] CM team notified by [facility] that patient is not appropriate for admit. CM notified Katina Duarte ( of patient) that patient will not be able to admit to [facility]. CM discussed SNF for rehabilitation. Mrs. Duarte consents to [facility] for rehabilitation. JOSE RAUL telephonically signed and placed in chart. Clinicals faxed to [facility]. CM will continue to follow and will assist as needed with dc plans/needs. DCP- Discharge Planning Updated by [id number]: Enriquelizzie Martinones on 06/13/20 10:[address] Received phone call from spouse of patient, Katina Duarte ([phone]) on 13 June 2020 at 0979. Mrs. Duarte stated that she is worried about bringing her home and would like for him to go to inpatient rehab before coming home. Mrs. Duarte stated that she takes care of grandchildren and cannot at 74 years old lift her . Mrs. Duarte expressed concern about her 's inappropriate behavior at times with undressing and "playing" with feces. Mrs. Daurte stated that he cannot be around the grandchildren if he continues that type of behavior. Mrs. Duarte further expressed concern about her 's lack of eating and the "bland" food at [facility]. CM informed Mrs. Duarte that a psych eval may be needed as well as placement in a SNF. Mrs. Duarte stated that she would like for her to go to Inpatient rehab "downstairs" and if he could not go there, then "...across [facility] on [facility]". JOSE RAUL telephonically signed and placed in chart. Mrs. Duarte stated that she would like to speak to the physician or FREIGHT UNLOADER regarding her . CM informed Mrs. Duarte that her concerns will be discussed at IDT and the need to discuss SNF placement. Mrs. Duarte is not opposed to psych evaluation for her . DC IMM telephonically explained, signed, and placed on chart per current Isolation protocols. DC IMM will be delivered via certified mail. CM will continue to follow and will assist as needed with dc plans/needs. DCP- Discharge Planning Updated by [id number]: Jena Pacheco on 06/12/20 11:[address] SPOKE TO PATIENTS ABOUT REFERRAL TO [facility] RE[facility] AND SHE IS AGREEABLE TO THAT, I ALSO EXPLAINED TO HER THAT IF THEY DID NOT ACCPET HIM THAT SHE WOULD NEED TO GET WITH HER KIDS AND PICK A SKILLED FACILITY FOR A REFERRAL TO BE SENT TO . CM WILL SEND A REFERRAL TO [facility] INPATIENT REH[facility] DCP- Discharge Planning Updated by [id number]: Jena Pacheco on 06/11/20 12:[address] attempted to call patient's about her [facility] to see if this would be ok to send the referral [facility] is not going to accept him at this time. CM will tray again later at this time. DCP- Discharge Planning Updated by [email or web address]: Jena Pacheco on 06/04/20 4:[address] PATIENTS CALLED AND STATED THAT HE WILL NOT GO TO THE PSYCH UNIT DCP- Discharge Planning Updated by [id number]: Jena Pacheco on 06/01/20 9:[address] Patient Name: RENE DUARTE Admission Status: ER Accout number: [id number] Admission Date: 05-24-2020 : 1940 Admission Diagnosis:FRACTURE OF UNSP PART OF NECK OF RIGHT FEMUR, INIT Attending: JULIAN REIS Current LOS: 8 Anticipated DC Date: Planned Disposition: Inpatient Rehab Primary Insurance: MEDICARE A & B Discharge Planning Comments: CM met with patient 's over the phone to complete initial dc planning assessment. CM educated patient on the CM role and verbal consent given by patient to complete assessment. Patient lives at home with his spouse where he was independent with his care. His stated that he has not left his home in the past 7 months. 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 He had not needed any dme at home. She stated he has an ETOH problem and has since she has been to him. He sleeps on the couch at night. She would like for him to go to [facility] inpatient rehab when he is able to. He does not have a PCP, because he does not believe in MD's. She did make the comment that the patient has mentioned the that he has wanted to just . The reports he has been saying that for the past 3 years. I have not spoken with the patient, per NN he is confused and restrained. CM will continue to follow and will assist as needed with dc plans/needs. Binder Operator: Jena Pacheco DCPIA - Discharge Planning Initial Assessment Updated by [email or web address]: Jena Pacheco on 06/01/20 10:35 am * Is the patient Alert and Oriented? Yes * How many steps to enter\\exit or inside your home? * PCP NONE * Pharmacy [facility] * Preadmission Environment Home with Family * ADLs Independent * Equipment None * List name and contact numbers for known caregivers / representatives who currently or will assist patient after discharge: KATINA ( ) [phone] * Verbal permission to speak to the caregivers and representatives has been obtained from the patient. N/A * Community resources currently utilized None * Additional services required to return to the preadmission environment? Yes * Can the patient safely return to the preadmission environment? No * Has this patient been hospitalized within the prior 30 days at any hospital? No Coverage Notice Reviewer: [id number] - Jena Pacheco Notice Issued Date-Time: 06/01/2020 10:30 Notice Type: Patient Choice Letter Notice Delivered To: Family Member Relationship to Patient: Spouse Quill Stripper Name: katina Delivery Method: PHONE - Phone Days: Prior Verbal Notification: Yes Recipient Understood Notice: Recipient Signature: Med Rec Note Co-signed by Attending: Coverage Notice Comment: jose raul for inpatient rehab at [facility] per at [facility] Reviewer: [id number] Wyatt Hennessy Notice Issued Date-Time: 06/13/2020 9:50 Notice Type: Patient Choice Letter Notice Delivered To: Family Member Relationship to Patient: Spouse Quill Stripper Name: KATINA Delivery Method: PHONE - Phone Days: Prior Verbal Notification: Recipient Understood Notice: Yes Recipient Signature: Yes Med Rec Note Co-signed by Attending: Coverage Notice Comment: [facility] Reviewer: [id number] Wyatt Hennessy Notice Issued Date-Time: 06/13/2020 9:50 Notice Type: IM Discharge Notice Notice Delivered To: Family Member Relationship to Patient: Spouse Quill Stripper Name: KATINA Delivery Method: PHONE - Phone Days: Prior Verbal Notification: Recipient Understood Notice: Yes Recipient Signature: Yes Med Rec Note Co-signed by Attending: Coverage Notice Comment: DC IMM telephonically explained, signed, and placed on chart per current Isolation protocols. Last DP export: 06/17/20 1:20 p Patient Name: RENE DUARTE Page [id number] at 0934 All edits/amendments must be made on the electronic document DICTATION DATE: 06/18/20933 IT PROJECT MANAGER: FLOR 06/18/20933 RPT#: [id number] DC DATE: STATUS: ADM IN [facility] [address] [place] [address] END OF REPORT
--- NOTE | 2020-06-18 10:36 | MORECARE ---
CASE MANAGEMENT DISCHARGE SUMMARY PATIENT: RENE DUARTE UNIT: [id number] ADM DATE: 05/24/20 AGE: 79 : 42 SEX: M ROOM/BED: D.2202 AUTHOR: LM,DOC PHYSICIAN: REFERRING PHYSICIAN: JULIAN REIS MD DATE OF SERVICE: 06/18/20 Discharge Plan Patient Name: RENE DUARTE Facility: [facility]:[place] : 1940 Planned Disposition: Inpatient Rehab Anticipated Discharge Date: Discharge Date: Expected LOS: Initial Reviewer: [id number] Initial Review Date: 05/24/2020 Generated: 06/18/20 11:35 am Comments DCP- Discharge Planning Updated by [email or web address]: Jena Pacheco on 06/18/20 9:[address] I spoke with patient's about dc plan and the acceptance to [facility]. He will be discharging there today to a Skilled Bed. IMM went over with on the phone and a will be mailed to her via certified mail. CM to follow and assist as needed DCP- Discharge Planning Updated by [id number]: Jena Pacheco on 06/18/20 8:[address] [facility] LEFT CALLED AND STATED THAT THEY WILL ACCEPT THE PATIENT, WILL LET MD KNOW CM TO FOLLOW AND ASSIST NEEDED DCP- Discharge Planning Updated by [id number]: Jena Pacheco on 06/17/20 1:[address] O[facility] ARLEN CARMONA CALLED AND IS REVIEWING HIS CHART AND WILL GET BACK ME DCP- Discharge Planning Updated by [id number]: Jena Pacheco on 06/17/20 12:[address] Linda with [facility] stated that they were not going to be able to accept him. I will send the referral to [facility]. DCP- Discharge Planning Updated by [email or web address]: Jena Pacheco on 06/17/20 8:[address] REACHED OUT TO [facility] AND LEFT MESSAGE FOR LINDA ABOUT THE REFERRAL DCP- Discharge Planning Updated by [id number]: Jena Pacheco on 06/17/20 7:[address] REFERRAL SENT TO [facility] DCP- Discharge Planning Updated by [id number]: Jena Pacheco on 06/16/20 6:[address] Received a message from my partner Ema stating that the family called and they now want the patient to go to either [facility] or [facility], not [facility] I will reach out to the today to see what her 1st choice is now DCP- Discharge Planning Updated by [id number]: Jena Pacheco on 06/15/20 10:[address] Spoke with Nicole at [facility], she will speak to about longterm goals and then will come see the patient to assess id they can accept him. CM to follow and assist as needed DCP- Discharge Planning Updated by [id number]: Enrique Hennessy on 06/14/20 4:[address] CM team notified by Joy that patient is not appropriate for admit. CM notified Katina Duarte ( of patient) that patient will not be able to admit to [facility]. CM discussed SNF for rehabilitation. Mrs. Duarte consents to [facility] for rehabilitation. JOSE RAUL telephonically signed and placed in chart. Clinicals faxed to [facility]. CM will continue to follow and will assist as needed with dc plans/needs. DCP- Discharge Planning Updated by [id number]: Enrique Hennessy on 06/13/20 10:[address] Received phone call from spouse of patient, Katina Duarte ([phone]) on 13 June 2020 at 0950. Mrs. Duarte stated that she is worried about bringing her home and would like for him to go to inpatient rehab before coming home. Mrs. Duarte stated that she takes care of grandchildren and cannot at 74 years old lift her . Mrs. Duarte expressed concern about her 's inappropriate behavior at times with undressing and "playing" with feces. Mrs. Duarte stated that he cannot be around the grandchildren if he continues that type of behavior. Mrs. Duarte further expressed concern about her 's lack of eating and the "bland" food at [facility]. CM informed Mrs. Duarte that a psych eval may be needed as well as placement in a SNF. Mrs. Duarte stated that she would like for her to go to Inpatient rehab "downstairs" and if he could not go there, then "...across [facility] on [facility]". JOSE RAUL telephonically signed and placed in chart. Mrs. Duarte stated that she would like to speak to the physician or KNIFE SETTER regarding her . CM informed Mrs. Duarte that her concerns will be discussed at IDT and the need to discuss SNF placement. Mrs. Duarte is not opposed to psych evaluation for her . DC IMM telephonically explained, signed, and placed on chart per current Isolation protocols. DC IMM will be delivered via certified mail. CM will continue to follow and will assist as needed with dc plans/needs. DCP- Discharge Planning Updated by [id number]: Jena Pacheco on 06/12/20 11:[address] SPOKE TO PATIENTS ABOUT REFERRAL TO [facility] AND SHE IS AGREEABLE TO THAT, I ALSO EXPLAINED TO HER THAT IF THEY DID NOT ACCPET HIM THAT SHE WOULD NEED TO GET WITH HER KIDS AND PICK A SKILLED FACILITY FOR A REFERRAL TO BE SENT TO . CM WILL SEND A REFERRAL TO [facility] DCP- Discharge Planning Updated by [id number]: Jena Pacheco on 06/11/20 12:[address] attempted to call patient's about her [facility] to see if this would be ok to send the referral [facility] is not going to accept him at this time. CM will tray again later at this time. DCP- Discharge Planning Updated by [id number]: Jena Pacheco on 06/04/20 4:[address] PATIENTS CALLED AND STATED THAT HE WILL NOT GO TO THE PSYCH UNIT DCP- Discharge Planning Updated by [email or web address]: Jena Pacheco on 06/01/20 9:[address] Patient Name: RENE DUARTE Admission Status: ER Accout number: [id number] Admission Date: 05-24-2020 : 1940 Admission Diagnosis:FRACTURE OF UNSP PART OF NECK OF RIGHT FEMUR, INIT Attending: JULIAN REIS Current LOS: 8 Anticipated DC Date: Planned Disposition: Inpatient Rehab Primary Insurance: MEDICARE A & B Discharge Planning Comments: CM met with patient 's over the phone to complete initial dc planning assessment. CM educated patient on the CM role and verbal consent given by patient to complete assessment. Patient lives at home with his spouse where he was independent with his care. His stated that he has not left his home in the past 7 months. 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 He had not needed any dme at home. She stated he has an ETOH problem and has since she has been to him. He sleeps on the couch at night. She would like for him to go to [facility] inpatient rehab when he is able to. He does not have a PCP, because he does not believe in MD's. She did make the comment that the patient has mentioned the that he has wanted to just . The reports he has been saying that for the past 3 years. I have not spoken with the patient, per NN he is confused and restrained. CM will continue to follow and will assist as needed with dc plans/needs. Survey Rodman: Jena Pacheco DCPIA - Discharge Planning Initial Assessment Updated by [id number]: Jena Pacheco on 06/01/20 10:35 am * Is the patient Alert and Oriented? Yes * How many steps to enter\\exit or inside your home? * PCP NONE * Pharmacy [facility] * Preadmission Environment Home with Family * ADLs Independent * Equipment None * List name and contact numbers for known caregivers / representatives who currently or will assist patient after discharge: KATINA ( ) [phone] * Verbal permission to speak to the caregivers and representatives has been obtained from the patient. N/A * Community resources currently utilized None * Additional services required to return to the preadmission environment? Yes * Can the patient safely return to the preadmission environment? No * Has this patient been hospitalized within the prior 30 days at any hospital? No Coverage Notice Reviewer: [id number] - Jena Pacheco Notice Issued Date-Time: 06/01/2020 10:30 Notice Type: Patient Choice Letter Notice Delivered To: Family Member Relationship to Patient: Spouse Oracle Scm Consultant Name: katina Delivery Method: PHONE - Phone Days: Prior Verbal Notification: Yes Recipient Understood Notice: Recipient Signature: Med Rec Note Co-signed by Attending: Coverage Notice Comment: jose raul for inpatient rehab at [facility] per at [facility] Reviewer: [id number] - Enrique Hennessy Notice Issued Date-Time: 06/13/2020 9:50 Notice Type: Patient Choice Letter Notice Delivered To: Family Member Relationship to Patient: Spouse Oracle Scm Consultant Name: KATINA Delivery Method: PHONE - Phone Days: Prior Verbal Notification: Recipient Understood Notice: Yes Recipient Signature: Yes Med Rec Note Co-signed by Attending: Coverage Notice Comment: [facility] Reviewer: [id number] Wyatt Hennessy Notice Issued Date-Time: 06/13/2020 9:50 Notice Type: IM Discharge Notice Notice Delivered To: Family Member Relationship to Patient: Spouse Oracle Scm Consultant Name: KATINA Delivery Method: PHONE - Phone Days: Prior Verbal Notification: Recipient Understood Notice: Yes Recipient Signature: Yes Med Rec Note Co-signed by Attending: Coverage Notice Comment: DC IMM telephonically explained, signed, and placed on chart per current Isolation protocols. Reviewer: [id number] Wyatt Pacheco Notice Issued Date-Time: 06/18/2020 10:30 Notice Type: IM Discharge Notice Notice Delivered To: Family Member Relationship to Patient: Spouse Oracle Scm Consultant Name: katina Delivery Method: CERT - Certified Mail Days: Prior Verbal Notification: Yes Recipient Understood Notice: Yes Recipient Signature: Med Rec Note Co-signed by Attending: Coverage Notice Comment: via phone with imm Last DP export: 06/18/20 8:34 a Patient Name: RENE DUARTE Page [id number] at 1036 All edits/amendments must be made on the electronic document DICTATION DATE: 06/18/20 1036 TUG BOAT CAPTAIN: FLOR 06/18/20 1036 RPT#: [id number] DC DATE: STATUS: ADM IN [facility] [address] [place] [address] END OF REPORT
[2020-06-18 12:52] VITALS: BP 96/55
--- NOTE | 2020-06-18 15:02 | NUR ---
OT NOTE: PT REQUIRED MAX A FOR HAND/NAIL HYGIENE. PT COMPLETED ORAL CARE WITH MAX A. PT COMPLETED FACE HYGIENE WITH MOD A. [phone] THANK YOU,ALLYSON POTTER
--- NOTE | 2020-06-19 09:53 | MORECARE ---
CASE MANAGEMENT DISCHARGE SUMMARY PATIENT: RENE DUARTE UNIT: [id number] ADM DATE: 05/24/20 AGE: 79 : 42 SEX: M ROOM/BED: D.2202 AUTHOR: LM,DOC PHYSICIAN: REFERRING PHYSICIAN: JULIAN REIS MD DATE OF SERVICE: 06/19/20 Discharge Plan Patient Name: RENE DUARTE Facility: [facility]:[place] : 1940 Planned Disposition: Inpatient Rehab Anticipated Discharge Date: Discharge Date: 06/18/2020 Expected LOS: Initial Reviewer: [id number] Initial Review Date: 05/24/2020 Generated: 06/19/20 10:52 am Comments DCP- Discharge Planning Updated by [id number]: Jena Pacheco on 06/18/20 9:[address] I spoke with patient's about dc plan and the acceptance to [facility]. He will be discharging there today to a Skilled Bed. IMM went over with on the phone and a will be mailed to her via certified mail. CM to follow and assist as needed DCP- Discharge Planning Updated by [id number]: Jena Pacheco on 06/18/20 8:[address] [facility] LEFT CALLED AND STATED THAT THEY WILL ACCEPT THE PATIENT, WILL LET MD KNOW CM TO FOLLOW AND ASSIST NEEDED DCP- Discharge Planning Updated by [id number]: Jena Pacheco on 06/17/20 1:[address] [facility] ARLEN CARMON[facility] CALLED AND IS REVIEWING HIS CHART AND WILL GET BACK ME DCP- Discharge Planning Updated by [id number]: Jena Pacheco on 06/17/20 12:[address] Linda with [facility] stated that they were not going to be able to accept him. I will send the referral to [facility]. DCP- Discharge Planning Updated by [id number]: Jena Pacheco on 06/17/20 8:[address] REACHED OUT TO [facility] AND LEFT MESSAGE FOR LINDA ABOUT THE REFERRAL DCP- Discharge Planning Updated by [id number]: Jena Pacheco on 06/17/20 7:[address] REFERRAL SENT TO [facility] LONGTERM DCP- Discharge Planning Updated by [id number]: Jena Pacheco on 06/16/20 6:[address] Received a message from my partner Ema stating that the family called and they now want the patient to go to either [facility] or [facility], not [facility] I will reach out to the today to see what her 1st choice is now DCP- Discharge Planning Updated by [id number]: Jena Pacheco on 06/15/20 10:[address] Spoke with Nicole at [facility], she will speak to about intermodal customer service goals and then will come see the patient to assess id they can accept him. CM to follow and assist as needed DCP- Discharge Planning Updated by [id number]: Enrique Hennessy on 06/14/20 4:[address] CM team notified by Joy that patient is not appropriate for admit. CM notified Katina Duarte ( of patient) that patient will not be able to admit to [facility]. CM discussed SNF for rehabilitation. Mrs. Duarte consents to [facility] for rehabilitation. JOSE RAUL telephonically signed and placed in chart. Clinicals faxed to [facility]. CM will continue to follow and will assist as needed with dc plans/needs. DCP- Discharge Planning Updated by [id number]: Enrique Hennessy on 06/13/20 10:[address] Received phone call from spouse of patient, Katina Duarte ([phone]) on 13 June 2020 at 0950. Mrs. Duarte stated that she is worried about bringing her home and would like for him to go to inpatient rehab before coming home. Mrs. Duarte stated that she takes care of grandchildren and cannot at 74 years old lift her . Mrs. Duarte expressed concern about her 's inappropriate behavior at times with undressing and "playing" with feces. Mrs. Duarte stated that he cannot be around the grandchildren if he continues that type of behavior. Mrs. Duarte further expressed concern about her 's lack of eating and the "bland" food at [facility]. CM informed Mrs. Duarte that a psych eval may be needed as well as placement in a SNF. Mrs. Duarte stated that she would like for her to go to Inpatient rehab "downstairs" and if he could not go there, then "...[facility]". JOSE RAUL telephonically signed and placed in chart. Mrs. Duarte stated that she would like to speak to the physician or MOTORBOAT MECHANIC HELPER regarding her . CM informed Mrs. Duarte that her concerns will be discussed at IDT and the need to discuss SNF placement. Mrs. Duarte is not opposed to psych evaluation for her . DC IMM telephonically explained, signed, and placed on chart per current Isolation protocols. DC IMM will be delivered via certified mail. CM will continue to follow and will assist as needed with dc plans/needs. DCP- Discharge Planning Updated by [id number]: Jena Pacheco on 06/12/20 11:[address] SPOKE TO PATIENTS ABOUT REFERRAL TO [facility] AND SHE IS AGREEABLE TO THAT, I ALSO EXPLAINED TO HER THAT IF THEY DID NOT ACCPET HIM THAT SHE WOULD NEED TO GET WITH HER KIDS AND PICK A SKILLED FACILITY FOR A REFERRAL TO BE SENT TO . CM WILL SEND A REFERRAL TO [facility] DCP- Discharge Planning Updated by [email or web address]: Jena Pacheco on 06/11/20 12:[address] attempted to call patient's about her [facility] to see if this would be ok to send the referral [facility] is not going to accept him at this time. CM will tray again later at this time. DCP- Discharge Planning Updated by [id number]: Jena Pacheco on 06/04/20 4:[address] PATIENTS CALLED AND STATED THAT HE WILL NOT GO TO THE PSYCH UNIT DCP- Discharge Planning Updated by [email or web address]: Jena Pacheco on 06/01/20 9:[address] Patient Name: RENE DUARTE Admission Status: ER Accout number: [id number] Admission Date: 05-24-2020 : 1940 Admission Diagnosis:FRACTURE OF UNSP PART OF NECK OF RIGHT FEMUR, INIT Attending: JULIAN REIS Current LOS: 8 Anticipated DC Date: Planned Disposition: Inpatient Rehab Primary Insurance: MEDICARE A & B Discharge Planning Comments: CM met with patient 's over the phone to complete initial dc planning assessment. CM educated patient on the CM role and verbal consent given by patient to complete assessment. Patient lives at home with his spouse where he was independent with his care. His stated that he has not left his home in the past 7 months. 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 He had not needed any dme at home. She stated he has an ETOH problem and has since she has been to him. He sleeps on the couch at night. She would like for him to go to [facility] inpatient rehab when he is able to. He does not have a PCP, because he does not believe in MD's. She did make the comment that the patient has mentioned the that he has wanted to just . The reports he has been saying that for the past 3 years. I have not spoken with the patient, per NN he is confused and restrained. CM will continue to follow and will assist as needed with dc plans/needs. Ball Assembler: Jena Pacheco DCPIA - Discharge Planning Initial Assessment Updated by [id number]: Jena Pacheco on 06/01/20 10:35 am * Is the patient Alert and Oriented? Yes * How many steps to enter\\exit or inside your home? * PCP NONE * Pharmacy [facility] * Preadmission Environment Home with Family * ADLs Independent * Equipment None * List name and contact numbers for known caregivers / representatives who currently or will assist patient after discharge: KATINA ( ) [phone] * Verbal permission to speak to the caregivers and representatives has been obtained from the patient. N/A * Community resources currently utilized None * Additional services required to return to the preadmission environment? Yes * Can the patient safely return to the preadmission environment? No * Has this patient been hospitalized within the prior 30 days at any hospital? No Coverage Notice Reviewer: [id number] - Jena Pacheco Notice Issued Date-Time: 06/01/2020 10:30 Notice Type: Patient Choice Letter Notice Delivered To: Family Member Relationship to Patient: Spouse Manager Steel Name: ktaina Delivery Method: PHONE - Phone Days: Prior Verbal Notification: Yes Recipient Understood Notice: Recipient Signature: Med Rec Note Co-signed by Attending: Coverage Notice Comment: jose raul for inpatient rehab at [facility] per at [facility] Reviewer: [id number] - Enrique Hennessy Notice Issued Date-Time: 06/13/2020 9:50 Notice Type: Patient Choice Letter Notice Delivered To: Family Member Relationship to Patient: Spouse Manager Steel Name: KATINA Delivery Method: PHONE - Phone Days: Prior Verbal Notification: Recipient Understood Notice: Yes Recipient Signature: Yes Med Rec Note Co-signed by Attending: Coverage Notice Comment: [facility] Reviewer: [id number] - Enrique Hennessy Notice Issued Date-Time: 06/13/2020 9:50 Notice Type: IM Discharge Notice Notice Delivered To: Family Member Relationship to Patient: Spouse Manager Steel Name: KATINA Delivery Method: PHONE - Phone Days: Prior Verbal Notification: Recipient Understood Notice: Yes Recipient Signature: Yes Med Rec Note Co-signed by Attending: Coverage Notice Comment: DC IMM telephonically explained, signed, and placed on chart per current Isolation protocols. Reviewer: [id number] - Jena Pacheco Notice Issued Date-Time: 06/18/2020 10:30 Notice Type: IM Discharge Notice Notice Delivered To: Family Member Relationship to Patient: Spouse Manager Steel Name: katina Delivery Method: CERT - Certified Mail Days: Prior Verbal Notification: Yes Recipient Understood Notice: Yes Recipient Signature: Med Rec Note Co-signed by Attending: Coverage Notice Comment: via phone with imm Last DP export: 06/18/20 9:36 a Patient Name: RENE DUARTE Page [phone] at 0953 All edits/amendments must be made on the electronic document DICTATION DATE: 06/19/20952 MANUFACTURING ENGINEER PAINT: FLOR 06/19/20 0953 RPT#: [id number] DC DATE:06/18/20 STATUS: DIS IN [facility] [address] [place] [address] END OF REPORT
== END 2020-06-18 15:00 | DRG 480 ==
LOC: D.ER 10:24 → D.MS 14:25 → D.EDHOLD 14:25 → D.MS 15:19
PROVIDERS: Emergency Medicine; Family Medicine; Family Medicine Adult Medicine; Orthopaedic Surgery; ADMIT Emergency Medicine; ATTEND Emergency Medicine
PROC: 0QS604Z Reposition Right Upper Femur with Internal Fixation Device, Open Approach (ICD-10-PCS; principal; 2020-05-25 09:30)
DX: S72.001A Fracture of unspecified part of neck of right femur, initial encounter for closed fracture (principal); J18.9 Pneumonia, unspecified organism; E87.1 Hypo-osmolality and hyponatremia; D62 Acute posthemorrhagic anemia; F03.91 Unspecified dementia, unspecified severity, with behavioral disturbance; W19.XXXA Unspecified fall, initial encounter; I10 Essential (primary) hypertension; S20.219A Contusion of unspecified front wall of thorax, initial encounter; M10.9 Gout, unspecified; R41.0 Disorientation, unspecified; Z66 Do not resuscitate

== ENCOUNTER 2020-07-02 20:05 | Inpatient (IN) | payer MEDICARE, OTHER ==
[~2020-07-02] VITALS: Ht 170.2 cm; Wt 62.4 kg
[2020-07-02 20:00] VITALS: BP 111/67
[~2020-07-02 20:05] MED LIST changes: +BAYER CHEWABLE81 MG PO; +ELIQUIS2.5 MG PO; +MUCINEX600 MG PO; +TESSALON PERLE100 MG PO
[2020-07-02 20:14] VITALS: BP 111/67
[2020-07-02] MEDS ORDERED: MUCINEX600 MG PO (20:15)
--- NOTE | 2020-07-02 20:56 | NUR ---
PATIENT ARRIVED AT 19:00, ALERT AND ORIENTED TO PERSON, BEING IN A HOSPITAL, CONSENT FROM [facility], CODE STATUS IS FULL CODE, ARRIVED FROM [facility] , HISTORY OF FX RIGHT HIP ONE MONTH AGO, AMBULATES WITH ASSIST, UPPER DENTURE, CONFUSION, AGGRESSION, AND SUICIDAL STATEMENTS AT [facility], DENIES SUICIDE HERE, PHYSICIAN AWARE OF ARRIVAL.
[2020-07-03 05:55] LABS: BASOPHILS 0.4 % (0-2); EOSINOPHILS 4.7 % (0-7); HEMATOCRIT 31.8 % (42.0-54.0); HEMOGLOBIN 10.2 g/dL (13.5-17.5); LYMPHOCYTE ABS# 1.07 10x3/uL (1.32-3.57); LYMPHOCYTES 23.7 % (15-50); MCHC 32.1 g/dL (31.0-37.0); MCV 96.7 fL (80.0-100.0); MEAN PLATELET VOLUME 9.3 fL (7.4-10.4); MONOCYTES 11.5 % (2-11); NEUTROPHIL ABS# 2.69 10x3/uL (1.78-5.38); NEUTROPHILS 59.7 % (40-80); RBC 3.29 10x6/uL (4.20-6.10); RDW 13.9 % (11.5-14.5); WBC 4.5 10x3/uL (4.8-10.8)
[2020-07-03 06:20] LABS: PLATELET COUNT 202 10x3/uL (130-400)
[2020-07-03 06:39] LABS: ALBUMIN 2.8 g/dL (3.4-5.0); ALKALINE PHOSPHATASE 86 U/L (30-120); ALT (SGPT) 27 U/L (10-68); BILIRUBIN - TOTAL 0.37 mg/dL (0.2-1.3); CALC OSMOLALITY 266 mosm/kg (275-300); CALCIUM 8.4 mg/dL (8.5-10.1); CARBON DIOXIDE 25.6 mmol/L (21.0-32.0); CHLORIDE - SERUM 105 mmol/L (98-107); CHOL - HDL RATIO 2.4 ratio (2.3-4.9); CHOLESTEROL, TOTAL 100 mg/dL (0-200); CREATININE - SERUM 0.8 mg/dL (0.6-1.3); GLUCOSE 87 mg/dL (74-106); HDL CHOLESTEROL 41 mg/dL (32-96); LDL CHOLESTEROL 50 mg/dL (0-100); LDL-HDL RATIO 1.2 ratio (1.5-3.5); POTASSIUM - SERUM 4.4 mmol/L (3.5-5.1); PROTEIN - SERUM 5.8 g/dL (6.4-8.2); SODIUM 134 mmol/L (136-145); THYROID STIMULATING HORMONE 2.05 uIU/mL (0.36-3.74); TRIGLYCERIDE 45 mg/dL (30-200); UREA NITROGEN 12 mg/dL (7-18); eGFR NON AFRICAN AMERICAN > 90 mL/min (90-120)
[2020-07-03 09:55] VITALS: BP 106/66
--- NOTE | 2020-07-03 13:00 | NUR ---
PASSCODE GIVEN TO THE AT THIS TIME. SHE STATED SHE DID NOT GET THE PASSCODE ON PREVIOUS SHIFT.
[2020-07-03 14:26] VITALS: Ht 170.2 cm; Wt 62.4 kg
--- NOTE | 2020-07-03 15:35 | NUR ---
Patient rec'd this am awake in bed. He is A/O and oriented times 2 to person and situation. He has been med compliant and took meds whole. He has been calm and cooperative today. He has not displayed dago yelling or combative/aggressive behaviors. Nakita GUIDO visted today with med assessment and adjustments. He is able to be directed or redirected. He did one to one in his room due to PUI status today.
[2020-07-03 18:04] LABS: BILIRUBIN NEGATIVE (NEGATIVE); KETONE NEGATIVE (NEGATIVE); NITRITE NEGATIVE (NEGATIVE); UROBILINOGEN NORMAL mg/dL (< 2)
[2020-07-03 20:00] VITALS: BP 109/59
--- NOTE | 2020-07-03 21:06 | NUR ---
PT IS ALERT AND ORIENTED TO SELF ONLY. HE HAS POOR INSIGHT INTO HIS SITUATION. HE IS RECEIVED IN HIS ROOM ON DROPLET ISOLATION PENDING COVID RESULTS. CALM AND COOPERATIVE WITH STAFF. UNABLE TO IDENTIFY WHERE HE IS OR EVEN THE TOWN HE IS IN. COMPLIANT WITH ALL MEDICATIONS. EASY TO REDIRECT. MONITOR FOR SAFETY.
[2020-07-04 06:11] LABS: RAPID PLASMA REAGIN Non Reactive (Non Reactive)
[2020-07-04 08:07] VITALS: BP 95/56
--- NOTE | 2020-07-04 13:00 | NUR ---
PATIENT OFFERED TO GIVE HIS LUNCH TRAY TO PATIENT IN ROOM 1129. STATED,"YOU CAN GIVE MY TRAY TO THE WOMAN NEXT DOOR BECAUSE SHE SAID THAT SHE HAS NOT BEEN GIVEN ANY FOOD TO EAT." EXPLAINED TO PT. THAT HIS NEIGHBOR HAS BEEN ADEQUATELY FED.
--- NOTE | 2020-07-04 14:45 | NUR ---
ALERT, CALM, QUIET, COOPERATIVE, DENIES SUICIDAL IDEATIONS. NO YELLING ALOUD NOTED, NO AGGRESSION OBSERVED. SPOUSE CALLED EARLIER THIS SHIFT TO CHECK ON PATIENT'S CONDITION. MEDS ADMIN PER ORDERS WITH NO ADVERSE REACTION NOTED. CONTINUE PLAN OF CARE, MONITORING OF S.I.
--- NOTE | 2020-07-04 16:10 | NUR ---
PATIENT REMAINS ON ISOLATION IN ROOM AWAITING COVID TEST RESULTS. PATIENT DENIES NEEDS AT THIS TIME.
[2020-07-04 20:00] VITALS: BP 101/67
--- NOTE | 2020-07-04 20:59 | NUR ---
PT IS ALERT AND ORIENTED TO SELF AND PLACE ONLY. HE STATES "IM IN A HOSPITAL." WHEN ASKED WHICH ONE STATES "THE ONE I ALWAYS GO TO." PT UNSURE OF WHY HE IS HERE STATES "IM SICK". FLAT AFFECT AND APPEARS WITHDRAWN. DENIES ANY SI. NO AGGRESSION NOTED. COMPLIANT WITH ALL MEDICATIONS. EASY TO REDIRECT. MONITOR FOR SAFETY.
--- NOTE | 2020-07-05 17:28 | NUR ---
Rec'd patient this am lying in bed. He is A/O times 2 to person and situation. He is med compliant and takes his meds whole. He has been calm and cooperative with care. He has displayed no aggressive or combative behavior to staff or other patients. He is receiving one to one teaching therapy with nurse and MHT in room due to PUI.
[2020-07-05 21:44] VITALS: BP 106/60
--- NOTE | 2020-07-06 00:26 | NUR ---
PT IS ALERT AND ORIENTED TO SELF AND PLACE. RECEIVED IN BED RESTING CALMLY. COMPLIANT WITH ALL MEDICATIONS. PT DID YELL AT TECH WHEN OFFERED A SNACK STATED "I WAS TRYING TO GO TO SLEEP." EASY TO REDIRECT. DENIES ANY SI. MONITOR FOR SAFETY.
[2020-07-06 08:00] VITALS: BP 105/61
--- NOTE | 2020-07-06 14:02 | PSY ---
PATIENT NAME:RENE ZHANG MEDICAL RECORD: [id number] : 44 LOCATION:[facility] ADMISSION DATE: 07/02/20 ACCOUNT: [id number] PSYCHIATRIC EVALUATION DATE OF EVALUATION: 07/03/20 DATE OF ADMISSION: 07/02/2020 DATE OF SERVICE: 07/03/2020 IDENTIFYING DATA: The patient is a 80-year-old male who appears about his stated age, who was admitted here voluntarily from rehabilitation at a long-term care facility. CHIEF COMPLAINT: Aggression. HISTORY OF PRESENT ILLNESS: The patient lived at home, had a fall and then ultimately had ORIF to the right hip. The patient then continued through the medical and was discharged to rehab at [facility]. While he was there, he began yelling out at the long term staff and then he was hitting staff and then he made suicidal statements. The patient reports when discussing this that they were wanting to throw him out because they needed his room. He states that they just threw all his stuff into a bag and will not let him go to bed when he wanted to go to bed. Staff did communicate with . states that he does have a history of making suicidal statements. She reports at one time that he had a brain resection and something was taken out. She reports that the suicidal statements have increased since his history of a stroke. PAST MEDICAL HISTORY: Includes ORIF, hyponatremia, anemia, hypertension and a history of gout. PAST PSYCHIATRIC HISTORY: Includes dementia with behaviors. FAMILY HISTORY: Noncontributory. ALLERGIES: HE HAS A FOOD ALLERGY TO FISH. CURRENT MEDICATIONS: Include Eliquis 2.5, Tessalon Perles 100 mg, allopurinol 300 mg, lisinopril 10 mg, Mucinex 600 mg, aspirin 162 mg. SOCIAL HISTORY: The patient reports that he has been for quite a few years to [place] and he states that he has a backlog of kids. The patient reports that he worked 15 years in a [employer]. The patient states that he used to drink an occasional beer. The patient denies any smoking or marijuana or other drug use. The patient also denies any history of sexual or physical trauma or emotional. MENTAL STATUS EXAMINATION: NEUROLOGIC: The patient is awake, alert and oriented to person, but disoriented to place, time and situation. PSYCHIATRIC: His mood is easily agitated. His affect is constricted. His thought processes have some thought blocking and he has severe impairment of memory, concentration and abstract abilities. He is denying that he would harm himself and denies hallucinations. The patient has poor insight into illness, has high impulsivity and poor judgment. His strengths are ability to communicate his needs and ability to participate in treatment. His weaknesses are his psychosocial. ASSESSMENT: AXIS I: Vascular dementia with behaviors. AXIS II: None. AXIS III: Includes hypertension, gout and recent open reduction and internal fixation to the right hip. AXIS IV: Moderate stressors. AXIS V: Global assessment function is 35. PLAN: At this time, the patient is admitted to the hospital for comprehensive medical, psychological, and social evaluation. He will be treated with both mood stabilizing, thought and memory enhancing medications. His long-term prognosis is guarded. Dictated By: Shayla Martinez APN I have interviewed/examined the above patient and agree with these documented findings. TRANSINT:[id number] Voice Confirmation ID: [id number] DOCUMENT ID: [id number] Dictated By: SHAYLA MARTINEZ I have interviewed/examined the above patient and agree with these documented findings. MARIA FERNANDA BLANKENSHIP MD at 1402 at 1500 CC: [id number] DICTATION DATE: 07/03/20 1234 CEMENTER HELPER: 07/03/20 1307 ADM IN [facility] [address] [place] [id number]
--- NOTE | 2020-07-06 17:30 | NUR ---
RECEIVED IN PATIENT ROOM. SITTING IN WHEELCHAIR. CALM AND COOPERATIVE WITH CARE AND ASSESSMENT. WITHDRAWN AND STAYS TO HIMSELF. NO AGGRESSIVE BEHAVIOR. DENIES SUICIDAL IDEATION. REDIRECT AND REORIENT NEEDED. EATING DINNER AT THIS TIME. CONTINUE PLAN OF CARE.
[2020-07-06 22:16] VITALS: BP 92/59
--- NOTE | 2020-07-07 02:00 | NUR ---
B)RECEIVED PATIENT LYING IN BED. ORIENTED TO PERSON AND PLACE. DELUSIONAL RELATING "WE JUST HAD A REPUBLICAN IN HERE." INFORMED NURSE THE REASON HE IS HERE "BECAUSE I'M NO GETTING THE STUFF THEY ARE PUTTING IN ME." DIFFICULTY FOLLOWING TOPIC OF CONVERSATION. I)ADMINISTER MEDS AND MONITOR COMPLIANCE. OBTAIN VERBAL CONTRACT FOR NO SELF HARM. R)MED COMPLIANT. CONTRACTS VERBALLY FOR NO SELF HARM. NO AGGRESSION OBSERVED. P) CONTINUE POC AND PROVIDE SAFE ENVIRONMENT.
--- NOTE | 2020-07-07 11:00 | NUR ---
Received patient in hallway in wheelchair by nurses station. Calm and cooperative with assessment at this time. Patient is very talkative with other peers at this time. Prescribed medications provided as ordered. Med compliant. No behaviors noted at this time. Redirect and reorient as needed. Fall precautions in place for safety. Will continue plan of care.
--- NOTE | 2020-07-07 16:48 | PN ---
PATIENT:RENE ZHANG MEDICAL RECORD: [id number] LOCATION:[facility] ADMISSION DATE: 07/02/20 PROGRESS NOTE DATE OF SERVICE: 07/06/2020 SUBJECTIVE: The patient's case was discussed with staff. He has no new complaint. OBJECTIVE: The patient is oriented to person and place, but not to time or situation. He has not been significantly disruptive or agitated today. 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 She is attributing many of the changes to a recent stroke which is certainly correct and worsening, but he does have a 50-year history of alcohol abuse that fortunately has stopped now, and given that he will be in a controlled setting, it is not likely to recur. I have started him on Namenda to assist with his cognitive impairment and I will also start him on scheduled dose of Klonopin to assist with any underlying anxiety that might be a precipitant of his behaviors. TRANSINT:[id number] Voice Confirmation ID: [id number] DOCUMENT ID: [id number] MARIA FERNANDA BLANKENSHIP MD at 1648 CC: [id number] DICTATION DATE: 07/06/20 175 FREE LANCE MODEL: 07/07/20 0058 ADM IN [facility] [address] [place] [address]
[2020-07-07 20:00] VITALS: BP 100/58
--- NOTE | 2020-07-07 20:33 | NUR ---
RECEIVED IN BEDROOM. RESTING IN BED WITH EYES CLOSED. RESPONS TO VOICE. CALM AND COOPERATIVE WITH CARE AND ASSESSMENT. NO SIGNS OF AGGRESSION. REDIRECT AND REORIENT NEEDED. CONTINUES TO REST QUIETLY IN BED. CONTINUE PLAN OF CARE.
[2020-07-08 07:05] LABS: BASOPHILS 0.7 % (0-2); EOSINOPHILS 3.3 % (0-7); HEMATOCRIT 33.2 % (42.0-54.0); HEMOGLOBIN 10.9 g/dL (13.5-17.5); LYMPHOCYTE ABS# 1.05 10x3/uL (1.32-3.57); LYMPHOCYTES 24.4 % (15-50); MCH 31.4 pg (26.0-34.0); MCHC 32.8 g/dL (31.0-37.0); MCV 95.7 fL (80.0-100.0); MEAN PLATELET VOLUME 9.3 fL (7.4-10.4); MONOCYTES 7.9 % (2-11); NEUTROPHIL ABS# 2.74 10x3/uL (1.78-5.38); NEUTROPHILS 63.7 % (40-80); PLATELET COUNT 238 10x3/uL (130-400); RBC 3.47 10x6/uL (4.20-6.10); RDW 13.9 % (11.5-14.5); WBC 4.3 10x3/uL (4.8-10.8)
[2020-07-08 08:16] VITALS: BP 115/62
--- NOTE | 2020-07-08 10:38 | NUR ---
Received patient in bed with eyes closed. Responds to verbal stimuli. Calm and cooperative with assessment at this time. Prescribed medications provided as ordered. Med compliant. No aggression noted at this time. Patient has little insight into his situation. Redirect and reorient as needed. Fall precautions in place for safety. Will continue plan of care.
--- NOTE | 2020-07-08 13:42 | NUR ---
Nutrition Re-Assessment Diet: Regular PO intake: 100% x last 9 meals Last BM: 07/07/20 Wt: 132# (07/05/20); Admit Wt: 134.2# (07/02/20) Meds and labs reviewed Estimated nutrition needs remain unchanged from initial nutrition assessment at this time. Patient is progressing towards meeting nutrition goals at this time. Recommendations/Interventions: -Recommend continue current diet. Will continue to honor food preferences. -RD will continue to monitor PO intake and wt trend. -RD will follow-up within 7 days.
--- NOTE | 2020-07-08 13:59 | NUR ---
GT BELT, PATIENT MIN ASST TO STAND AND MIN ASST TO WALK 80 FEET IN RICE.
--- NOTE | 2020-07-08 16:20 | PN ---
PATIENT:RENE ZHANG MEDICAL RECORD: [id number] LOCATION:[facility] ADMISSION DATE: 07/02/20 PROGRESS NOTE DATE OF SERVICE: 07/07/2020 SUBJECTIVE: The patient's case was discussed with staff. He has no new complaint. OBJECTIVE: The patient is partially oriented and has no thoughts of harming himself. He is in good behavioral control, although he has been a little withdrawn. ASSESSMENT: Vascular dementia. PLAN: Current medicines have been reviewed and will be maintained. Long-term prognosis is guarded. TRANSINT:[id number] Voice Confirmation ID: [id number] DOCUMENT ID: [id number] MARIA FERNANDA BLANKENSHIP MD at 1620 CC: [id number] DICTATION DATE: 07/07/20 171 LOGISTICS VICE PRESIDENT: 07/08/20 0026 ADM IN [facility] [address] [place] [address]
[2020-07-08 20:00] VITALS: BP 98/64
--- NOTE | 2020-07-08 21:27 | NUR ---
PT IS ALERT AND ORIENTED TO SELF ONLY. POOR INSIGHT INTO HIS SITUATION. RECEIVED IN HIS ROOM IN BED RESTING CALMLY. COOPERATIVE WITH STAFF. DECLINES HS SNACK. BLUNTED AFFECT. WITHDRAWN AND SELF ISOLATING. REDIRECT AND REORIENT NEEDED. COMPLIANT WITH ALL MEDICATIONS. DENIES ANY SI. MONITOR FOR SAFETY.
[2020-07-09 08:51] VITALS: BP 166/78
--- NOTE | 2020-07-09 13:10 | NUR ---
GT BELT, PATIENT MIN ASST TO STAND AND TO WALK IN RICE 140 FEET.
--- NOTE | 2020-07-09 15:31 | NUR ---
Patient rec'd this am up sitting in hallway. He is A/O times 2 to person and situation. He can be very calm and cooperative but then can become very argumentive and demonstrate aggressive behaviors. He became very upset with the PT when he attempted to question him why the PT had told his he couldn't leave until he (the patient) could walk. The PT attempted to explain that he didn't know patients and then the aggressive beh. began with the patient. He attended group therapy/activities but participated very little. This afternoon he sat very quietly while others were near. He denies any suicidal behavior or self harm.
--- NOTE | 2020-07-09 16:13 | PN ---
PATIENT:RENE ZHANG MEDICAL RECORD: [id number] LOCATION:[facility] ADMISSION DATE: 07/02/20 PROGRESS NOTE DATE OF SERVICE: 07/08/2020 SUBJECTIVE: The patient's case was discussed with staff. He has no new complaint. OBJECTIVE: The patient is in good behavioral control. He has limited insight. He has not been aggressive, but has been mildly agitated with personal care. ASSESSMENT: Vascular dementia. PLAN: The patient's wants to take him home. I think she is not up to the task of doing this, but she insists she wants to try which of course is not only admirable, but her prerogative and right. She does say that he must be able to walk with a walker and transfer. At this point, he is not doing so. He walks with the walker with minimal assist, but only with PT. We will try to progress him further, but again this is a challenging task and physical therapy will do their best to help. TRANSINT:[id number] Voice Confirmation ID: [id number] DOCUMENT ID: [id number] MARIA FERNANDA BLANKENSHIP MD at 1613 CC: [id number] DICTATION DATE: 07/08/20 165 DOCTOR CHIROPRACTIC: 07/08/20 6029 ADM IN [place] [id number] [place] [id number]
[2020-07-09 20:00] VITALS: BP 91/61
--- NOTE | 2020-07-10 02:14 | NUR ---
B) Patient is alert and oriented to person and place, calm and cooperative this shift, self isolated in his own room, I) Administered scheduled medications as ordered, monitored for safety R) Mediation compliant, sleeping quietly , no behaviors to report, P) Continue plan of care.
--- NOTE | 2020-07-10 10:31 | NUR ---
GT BELT, PATIENT MIN-MOD ASST TO STAND, MIN ASST TO WALK 200 FEET WITH WALKER.
--- NOTE | 2020-07-10 11:57 | PN ---
PATIENT:RENE ZHANG MEDICAL RECORD: [id number] LOCATION:[facility] ADMISSION DATE: 07/02/20 PROGRESS NOTE DATE OF SERVICE: 07/09/2020 SUBJECTIVE: The patient's case was discussed with staff. He has no new complaint. OBJECTIVE: The patient is walking better, has no thoughts of self-harm and is working with physical therapy. He is only oriented to person and is severely impaired cognitively. ASSESSMENT: Vascular dementia. PLAN: The patient may be discharged soon if this level of improvement continues. His wants to take him home, but only if he is able to transfer and walk with a walker. TRANSINT:[id number] Voice Confirmation ID: [id number] DOCUMENT ID: [id number] MARIA FERNANDA BLANKENSHIP MD at 1157 CC: [id number] DICTATION DATE: 07/09/201716 COOK FISHING VESSEL: 07/09/20 1843 ADM IN [facility] [address] [place] [address]
[2020-07-10 15:05] VITALS: BP 103/67
--- NOTE | 2020-07-10 15:15 | NUR ---
Patient rec'd this am sitting in a w/c in his room. He is A/O times 2 to person and situation. He did attend and participated some in group activities. No aggressive or aggitated behaviors have been assessed today. No yelling or hitting staff. He is med compliant and takes his meds whole. will continue to encourage him and offer postitive feedback when he participates.
[2020-07-10 20:00] VITALS: BP 92/57
--- NOTE | 2020-07-10 20:29 | NUR ---
RECEIVED PATIENT IN HIS ROOM LYING DOWN, HE IS CONFUSED, HE IS ORIENTED TO PERSON ONLY, HE SAYS THAT HE IS HERE BECAUSE THE PEOPLE WERE HURTING HIM. COMPLIANT WITH MEDS, NO ADVERSE REACTION NOTED. WILL FOLLOW POC
[2020-07-11 09:00] VITALS: BP 106/66
--- NOTE | 2020-07-11 14:43 | NUR ---
PT SITTING IN DAYAREA WATCHING T.V. AT THIS TIME. PT IS CONFUSED. COMPLIANT WITH MEDS, VITALS AND ASSESSMENTS. LIMITED INSIGHT TO SITUATION. NO AGRESSION OR SI STATEMENTS NOTED. PT IS WITHDRAWN FROM STAFF AND PEERS. PT WILL PARTICIPATE WHEN PROMPTED. CAN MAKE NEEDS KNOWN. PT CONT TO WORK WITH PT FOR STRENGTH TRAINING. TOLERATING WELL. CHAIR ALARM IN PLACE AND ACTIVE. WILL CONT PLAN OF CARE.
--- NOTE | 2020-07-11 14:43 | NUR ---
PT CALLED AND STATED SHE WOULD BE HERE FOR VISITATION.
--- NOTE | 2020-07-11 16:54 | NUR ---
pt visited with his daughter at this time. pt had a good visit. daughter wanted to see pts room at this time to look for his glasses. pt floor was sticky and smelled like urine. daughter c/o about room at that time. nurse attempted to reach EVS will attempt again.
--- NOTE | 2020-07-11 22:27 | NUR ---
B)RECEIVED PATIENT LYING IN BED. ISOLATIVE AND WITHDRAWN. INTERACTS WITH STAFF WHEN APPROACHED HOWEVER DOES NOT INITIATE CONVERSATION WITH STAFF NOR PEERS. POOR INSIGHT INTO THE REASON FOR HOSPITALIZATION. COOPERATIVE WITH STAFF REQUEST. I)ADMINISTER MEDS AND MONITOR COMPLIANCE. REORIENT NEEDED. R)MED COMPLIANT. POOR REORIENTATION. FORGETFUL AND DOES NOT RETAIN INFORMATION. COOPERATIVE AND PLEASANT. P)CONTINUE POC AND PROVIDE SAFE ENVIRONMENT.
--- NOTE | 2020-07-12 10:49 | NUR ---
REC'D PT IN ROOM. AWAKE AND ALERT TO PERSON ONLY. CALM AND COOPERATIVE WITH ASSESSMENT AT THIS TIME. PRESCRIBED MEDS PROVIDED ORDERED. MED COMPLIANT. DENIES SI AT THIS TIME. FALL PRECAUTIONS IN PLACE. WILL CPOC.
[2020-07-12 12:10] VITALS: BP 100/64
--- NOTE | 2020-07-12 20:19 | NUR ---
RECEIVED IN BEDROOM. RESTING IN BED WITH EYES CLOSED. RESPONDS TO VOICE. CALM AND COOPERATIVE WITH CARE AND ASSESSMENT. NO STATEMENTS OF SELF HARM VOICED THIS EVENING. ENCOURAGE TO EXPRESS NEEDS. CONTINUES TO REST QUIETLY IN BED. CONTINUE PLAN OF CARE.
[2020-07-12 21:11] VITALS: BP 100/63
[2020-07-13 10:34] VITALS: BP 100/57
--- NOTE | 2020-07-13 10:43 | NUR ---
PATIENT MIN ASST TO STAND AND MIN ASST TO WALK 180 FEET WITH WALKER.
--- NOTE | 2020-07-13 16:45 | NUR ---
QUIET, CALM, COOPERATIVE. NO ADVERSE BEHAVIORS NOTED. MEDS ADMIN PER ORDERS WITH COMPLETE MED COMPLIANCE NOTED. COOPERATIVE WITH SHAVING AND GROOMING. CONT POC OUTLINED.
--- NOTE | 2020-07-13 20:34 | NUR ---
RECEIVED IN BEDROOM. RESTING QUIETLY WITH EYES OPEN. CALM AND COOPERATIVE WITH CARE AND ASSESSMENT. NO STATEMENTS OF ELF HARM VOICED THIS EVENING. ENCOURAGE TO EXPRESS NEEDS. CONTINUES TO REST QUIETLY IN BED. CONTINUE PLAN OF CARE.
[2020-07-13 20:49] VITALS: BP 99/67
[2020-07-14 08:00] VITALS: BP 106/70
--- NOTE | 2020-07-14 10:45 | NUR ---
REC'D PT SITTING IN W/C IN ROOM. AWAKE AND ALERT TO X 1. CALM AND COOPERATIVE WITH ASSESSMENT AT THIS TIME. PRESCRIBED MED PROVIDED ORDERED. MED COMPLIANT. NO BEHAVIORS NOTED AT THIS TIME. FALL PRECAUTIONS IN PLACE. WILL CPOC.
--- NOTE | 2020-07-14 14:25 | NUR ---
PATIENT MIN ASST TO STAND FROM WHEELCHAIR AND MIN ASST TO WALK 200 FEET WITH WALKER.
--- NOTE | 2020-07-14 15:41 | PN ---
PATIENT:RENE ZHANG MEDICAL RECORD: [id number] LOCATION:[facility] ADMISSION DATE: 07/02/20 PROGRESS NOTE DATE OF SERVICE: 07/13/2020 SUBJECTIVE: The patient's case was discussed with staff. He has no new complaint. OBJECTIVE: The patient is in good behavioral control with poor insight about his situation. He has not been disruptive or aggressive to any appreciable degree. I have reviewed his medications and will maintain them. He will be monitored for clinical changes and I anticipate that he can be transitioned out of the hospital soon if this level of improvement continues. TRANSINT:[id number] Voice Confirmation ID: [id number] DOCUMENT ID: [id number] MARIA FERNANDA BLANKENSHIP MD at 1541 CC: [id number] DICTATION DATE: 07/13/20 164 COMMUNICATIONS SPECIALIST: 07/14/20 0024 ADM IN [facility] [address] [place] [address]
--- NOTE | 2020-07-14 16:03 | NUR ---
Nutrition Re-Assessment Diet: Regular PO intake: 100% x 3 meals yesterday Last BM: 07/14/20 Wt: 134.2# (07/12/20); Admit wt: 134.2# (07/02/20) Meds reviewed, no new chem labs Estimated nutrition needs and nutrition diagnosis remain unchanged from initial nutrition assessment at this time. Patient is progressing towards meeting nutrition goals at this time. Recommendations/Interventions: -Recommend continue current diet. -RD will follow-up within 7 days.
--- NOTE | 2020-07-14 20:28 | NUR ---
RECEIVED IN DAYROOM. SITTING IN A CHAIR WITH PEERS AT HIS SIDE. CALM AND COOPERATIVE WITH CARE AND ASSESSMENT. NO SIGNS OF AGGRESSION. REDIRECT AND REORIENT NEEDED. CONTINUES TO SIT QUIETLY IN DAYROOM. CONTINUE PLAN OF CARE.
[2020-07-14 20:29] VITALS: BP 108/57
[2020-07-15 10:34] VITALS: BP 109/58
--- NOTE | 2020-07-15 13:54 | NUR ---
PATIENT MIN ASST TO STAND AND AND MIN ASST TO WALK 130 FEET WITH WALKER.
--- NOTE | 2020-07-15 14:53 | PN ---
PATIENT:RENE ZHANG MEDICAL RECORD: [id number] LOCATION:[facility] ADMISSION DATE: 07/02/20 PROGRESS NOTE DATE OF SERVICE: 07/14/2020 SUBJECTIVE: The patient's case was discussed with staff. He has no new complaint. OBJECTIVE: The patient is in good behavioral control, poor insight about his situation. ASSESSMENT: Vascular dementia. PLAN: Current medicines have been reviewed. Long-term prognosis is guarded. I anticipate he can be transitioned out of the hospital soon. TRANSINT:[id number] Voice Confirmation ID: [id number] DOCUMENT ID: [id number] MARIA FERNANDA BLANKENSHIP MD at 1453 CC: [id number] DICTATION DATE: 07/14/20 173 FORMULA TECHNICIAN: 07/15/20 0216 ADM IN [facility] [address] [place] [address]
--- NOTE | 2020-07-15 15:40 | NUR ---
Patient rec'd this am sitting in a w/c in his room. He is A/O times 2 to person and situation. He is med compliant and takes his meds whole He attended group/activities therary. He particicipated a little. He has to be encouraged to participate otherwise he likes to find an area where he can be alone and to himself. Patients spouse Katina billy this am at 1105 inquiring how he is doing, Password verified. He is for the most time can be directed and redirected. He can easily become aggitated when he feels the staff is pushing him to something but will easily settled down and redirect.
[2020-07-15 20:00] VITALS: BP 82/50
--- NOTE | 2020-07-15 23:46 | NUR ---
B)RECEIVED PATIENT LYING IN BED. ORIENTED TO SELF, PLACE AND MONTH. POOR INSIGHT INTO THE REASON FOR HOSPITALIZATION RELATING "I HURT MY LEGS." WITHDRAWN AROUND PEERS. COOPERATIVE.
--- NOTE | 2020-07-15 23:48 | NUR ---
(B)RECEIVED PATIENT LYING IN BED. ORIENTED TO SELF, PLACE AND MONTH. NO INSIGHT INTO THE REASON FOR HOSPITALIZATION RELATING "I HURT MY LEGS." WITHDRAWN AROUND PEERS. COOPERATIVE WITHSTAFF. I)ADMINISTER MEDS AND MONITOR COMPLIANCE. REORIENT NEEDED. R)MED COMPLIANT. REORIENTS HOWEVER IS FORGETFUL AND DOES NOT RETAIN INFORMATION. P)CONTINUE POC AND PROVIDE SAFE ENVIRONMENT.
[2020-07-16 07:52] VITALS: BP 106/66
--- NOTE | 2020-07-16 09:50 | NUR ---
NURSE ATTEMPTED TO CALL PT TO SPEAK WITH HIS ABOUT COMING TO VISITATION THIS SHIFT. NO ANSWER AT THIS TIME.
--- NOTE | 2020-07-16 10:37 | NUR ---
GT BELT, PATIENT MIN ASST TO STAND FROM WHEELCHAIR AND TO WALK 200 FEET WITH WALKER.
--- NOTE | 2020-07-16 15:29 | NUR ---
pt became agitated when another pt got close to pt stating "enough is enough" peer did not get close to pt expect at this time. redirect pt behavior at this time. pt did not understand redirection.
--- NOTE | 2020-07-16 16:11 | PN ---
PATIENT:RENE ZHANG MEDICAL RECORD: [id number] LOCATION:[facility] ADMISSION DATE: 07/02/20 PROGRESS NOTE DATE OF SERVICE: 07/15/2020 SUBJECTIVE: The patient's case was discussed with staff. He has no new complaint. OBJECTIVE: The patient is significantly better. He is confused, isolative and withdrawn, but he is much more cooperative. There is certainly no aggression or yelling out and I believe he is manageable in a long-term care setting and he may be discharged back to it if this level of improvement continues. ASSESSMENT: Vascular dementia. PLAN: Current medicines and therapies will be maintained. TRANSINT:[id number] Voice Confirmation ID: [id number] DOCUMENT ID: [id number] MARIA FERNANDA BLANKENSHIP MD at 1611 CC: [id number] DICTATION DATE: 07/15/20 1616 LABORER MARINE TERMINAL: 07/16/20 0007 ADM IN [address] [id number]
--- NOTE | 2020-07-16 16:50 | NUR ---
and nurse talked to Jaime social services director about D/C at this time. stated she was not ready to be his 24 hour caregiver. she was not ready to take him home at this time. they made a pact not to put each other in the fdc. i cant do that to him but i have my hands full taking my grandkids to school and 2 of them have therapy appts a couple of days a week. i can not be there fulltime and not leave the house. CARMEN Sandoval stated then the most reliable plan would be to send him back to [place] for rehab to get more strength so he can come home and be able to not be 24 care. then and nurse spoke with pt after speaking with Jaime and together. Pt became very upset stating he hated the nurse and that it was the nurses fault i hate her this is her fault. she told me i was leaving today and she lied. she was suppose to be here today to get me so we could leave. nurse and attempted to explain situation pt did not verbalizied understanding of why he could not go home this shift. pt cont to say that it was not true the nurse was lying and he was going home this shift. thats why she was here was to pick him up so he could go home. pt was upset and his attempted to calm pt at this time. unable to redirected pt at this time. will cont to monitor.
[2020-07-16 20:00] VITALS: BP 108/68
--- NOTE | 2020-07-16 20:01 | NUR ---
B) Patient is alert and oriented to person, calm and cooperative this shift, I) Administered scheduled medications as ordered, monitored for safety R) Mediation compliant, no S.I. noted this shift, denies self harm P) Continue plan of care.
[2020-07-17 07:48] VITALS: BP 120/76
--- NOTE | 2020-07-17 13:33 | NUR ---
NUTRITION FOLLOW UP: COMMENTS: Patient eating well for past 9 meals. Per HARDWOOD SAWYER note, patient does not have any new complaints today and denied having any recent nausea, vomiting, or diarrhea. DIET: Regular ALLERGY: Fish PO INTAKE: 72% avg for last 9 meals WEIGHT: 134.2 lbs on 07/12 BM: x 1 on 07/14 SIG MEDS: Vit D, Vit B12, Milk of Mag SIG LABS: No new labs since 07/03 RECOMMENDATIONS: Continue Regular diet as tolerated Offer nutritional supplements if PO intake becomes <50% avg for meals RD to follow up within 7 days
--- NOTE | 2020-07-17 14:01 | PN ---
PATIENT:RENE ZHANG MEDICAL RECORD: [id number] LOCATION:[facility] ADMISSION DATE: 07/02/20 PROGRESS NOTE DATE OF SERVICE: 07/16/2020 SUBJECTIVE: The patient's case was discussed with staff. He has no new complaint. OBJECTIVE: The patient is participating in treatment and tolerating his medicines reasonably well. He has limited insight about his situation. ASSESSMENT: Dementia. PLAN: The patient's is visiting him again today; hopefully, she can discuss with us what her intentions are. I think she wants to take him home or rather I know she wants to take him home, but he is hesitant about that. She apparently has responsibility for some grandchildren and she is in her 70s as well. I do not think that she is capable of managing him without a significant amount of in-home help. At this point, I think the treatment of his behaviors is largely completed and working out the details about the least restrictive environment that he can be transferred to upon discharge is where we are. TRANSINT:[id number] Voice Confirmation ID: [id number] DOCUMENT ID: [id number] MARIA FERNANDA BLANKENSHIP MD at 1401 CC: [id number] DICTATION DATE: 07/16/20 1621 GOVERNMENT TEACHER: 07/16/20 2330 ADM IN [place] [address] [place] [address]
--- NOTE | 2020-07-17 17:18 | NUR ---
PT SITTING IN CHAIR AT THIS TIME. PT IS CONFUSED AND ALERT TO PERSON, PLACE. LIMITED INSIGHT TO SITUATION NOTED. PT ISOLATES SELF. WILL INTERACT WITH STAFF. PT IS STARTING TO EAT AT MEALS. COMPLIANT WITH MEDS, VITALS AND ASSESSMENTS. PT CAN MAKE NEEDS KNOWN. PT CAN SELF TOILET. PT IN W/C. CHAIR ALARM IN PLACE. WILL CONT PLAN OF CARE.
--- NOTE | 2020-07-17 18:15 | NUR ---
MHT walked in pt room due to hearing something fall. pt was laying in bed messing with something on his bedside table. staff redirected pt from bedside table. bed alarm in place and active. several minutes later staff heard something fall off bedside table and entered the room. noted pt on knees beside the bed by alarm box. staff inquried why he was on the floor. pt did not answer staff questions. pt did allow ROM. pt denies pain. 2x staff assisted pt back into w/c and back in bed. bed alarm in place and active. reeducated on importance of alarms and fall risk precautions in place. pt did not verbalize understanding. yelled at staff "well why not?" staff educated again. pt did not verbalize understanding. will cont to monitor.
--- NOTE | 2020-07-17 18:27 | NUR ---
fall noted, 1811 nurse notified general warehouse worker of 1812 nurse notified Charis SalazarWOOD BUFFER, 1814- nurse notified Katina of pts fall at this time. she verbalizied understanding and decision to wait for coming home so he could be stronger when he came home. vital signs: B/P: 101/56, P: 83, R: 18, T: 98.7, 98%. pt conts to deny pain.
--- NOTE | 2020-07-17 18:36 | NUR ---
This am at approx. 1015 am, I had walked by patients room and saw him sitting by the bedside, bent over, and staring at the alarm box. He wasn't touching it, just staring down at it.
[2020-07-17 20:00] VITALS: BP 116/60
--- NOTE | 2020-07-17 21:03 | NUR ---
PT IS ALERT AND ORIENTED TO SELF ONLY. RECEIVED IN HIS ROOM IN BED RESTING CALMLY. DENIES SI. EDUCATED ON IMPORTANCE OF LEAVING THE BED ALARM ON. DENIES ANY NEEDS AT THIS TIME. COMPLIANT WITH ALL MEDICATONS. MONITOR FOR SAFETY.
[2020-07-18 09:42] VITALS: BP 91/53
--- NOTE | 2020-07-18 10:43 | PN ---
PATIENT:RENE ZHANG MEDICAL RECORD: [id number] LOCATION:[facility] ADMISSION DATE: 07/02/20 PROGRESS NOTE DATE OF SERVICE: 07/17/2020 SUBJECTIVE: The patient's case was discussed with staff. He has no new complaint. OBJECTIVE: The patient is not eating well. He is partially oriented. He denies that he would seek to harm himself or others. ASSESSMENT: Dementia. PLAN: I am going to start the patient on a low dose of an appetite stimulant. He will be monitored for clinical changes associated with its use. TRANSINT:[id number] Voice Confirmation ID: [id number] DOCUMENT ID: [id number] MARIA FERNANDA BLANKENSHIP MD at 1043 CC: [id number] DICTATION DATE: 07/17/20 1541 BAKER HELPER: 07/17/20 2254 ADM IN [place] [id number] [place] [id number]
--- NOTE | 2020-07-18 14:06 | NUR ---
PATIENT WALKED 140 FEET WITH WALKER WITH MIN ASST.
--- NOTE | 2020-07-18 15:50 | NUR ---
SPOUSE HERE TO VISIT PATIENT.
--- NOTE | 2020-07-18 16:30 | NUR ---
RECEIVED THIS AM SITTING UP IN WC.IS ORIENTED TO SELF ONLY.ATTEMPTS TO REORIENT TO PLACE WITH POOR RESPONSE.IS COMPLIANT WITH MEDS AND STAFF.DENIES SUICIDAL THOUGHTS.WILL CONTINUE WITH CURRENT PLAN OF CARE,MONITOR FOR CHANGES AND SAFETY.
--- NOTE | 2020-07-18 17:15 | NUR ---
PATIENT IN ROOM SITTING IN W/C. MAL ALARM SOUNDED. WHEN THIS NURSE ARRIVED TO PATIENT'S ROOM, PATIENT WAS SEEN STANDING BESIDE W/C ATTEMPTING TO TURN OFF MAL ALARM. PATIENT ASSISTED BACK TO CHAIR WITHOUT INCIDENT. EDUCATION PERFORMED INSTRUCTING PATIENT ABOUT THE IMPORTANCE OF KEEPING THE MAL ALARM IN THE "ON" POSITION. PATIENT VOICED UNDERSTANDING. HOWEVER, FURTHER REINFORCEMENT IS NEEDED.
--- NOTE | 2020-07-18 19:06 | NUR ---
PATIENT SITTING CALMLY IN W/C. REMINDED PATIENT TO NOT TURN MAL ALARM OFF AND EDUCATED HIM ON THE IMPORTANCE OF THE ALARM.
[2020-07-18 22:17] VITALS: BP 110/66
--- NOTE | 2020-07-18 23:03 | NUR ---
PT IS ALERT AND ORIENTED TO SELF ONLY. RECEIVED IN HIS ROOM RESTING WITH EYES OPEN. SELF ISOLATING AND WITHDRAWN. COMPLIANT WITH ALL MEDICATIONS. REFUSES HS SNACK. OBSERVED PT TURNING OFF BED ALARM. EDUCATED PT ON IMPORTANCE OF BED ALARM AND PT VERBALIZED UNDERSTANDING. TURNED BED ALARM BACK ON. PT DENIES SI. MONITOR FOR SAFETY.
[2020-07-19 08:00] VITALS: BP 101/58
--- NOTE | 2020-07-19 10:47 | PN ---
PATIENT:RENE ZHANG MEDICAL RECORD: [id number] LOCATION:[facility] ADMISSION DATE: 07/02/20 PROGRESS NOTE DATE OF SERVICE: 07/18/2020 SUBJECTIVE: The patient's case was discussed with staff. He has no new complaint. OBJECTIVE: The patient is oriented to person only and has had no psychotic symptoms. He has no thoughts of self-harm. He is still unsteady with ambulation and isolating somewhat. He is still not eating well, but has been started on Megace. ASSESSMENT: Vascular dementia. PLAN: Current medicines and therapies have been reviewed and will be maintained. Long-term prognosis is guarded. TRANSINT:[id number] Voice Confirmation ID: [id number] DOCUMENT ID: [id number] MARIA FERNANDA BLANKENSHIP MD at 1047 CC: [id number] DICTATION DATE: 07/18/201120 HUMANITIES COORDINATOR: 07/18/201951 ADM IN [facility] [address] [place] [address]
--- NOTE | 2020-07-19 18:11 | NUR ---
ALERT, CALM, COOPERATIVE WITH MEDS. PATIENT WAS SEEN TURNING MAL ALARM OFF SO THAT HE COULD ARISE FROM W/C UN-NOTICED. OFTEN DIFFICULT TO RE-DIRECT. NO ADVERSE REACTION TO MEDS. CONT POC OUTLINED.
--- NOTE | 2020-07-19 20:05 | NUR ---
RECEIVED IN BEDROOM. TURNING OFF MAL ALARM AND ATTEMPTING TO EXIT BED. EDUCATED TO NOT TURN MAL ALARM OFF BECAUSE THAT IS THERE FOR HIS SAFETY. CALM AND COOPERATIVE WITH CARE AND ASSESSMENT. NO SIGNS OF AGGRESSION. NO STATEMENTS OF SELF HARM VOICED. ENCOURAGE TO EXPRESS NEEDS. REDIRECT AND REORIENT NEEDED. RESTING QUIETLY IN BED AT THIS TIME. CONTINUE PLAN OF CARE.
[2020-07-19 21:15] VITALS: BP 110/58
[2020-07-20 08:27] VITALS: BP 110/74
--- NOTE | 2020-07-20 10:55 | NUR ---
PATIENT MIN-MOD ASST TO STAND FROM WHEELCHAIR AND MIN ASST TO WALK 130 FEET WITH WALKER.
--- NOTE | 2020-07-20 13:29 | PN ---
PATIENT:RENE ZHANG MEDICAL RECORD: [id number] LOCATION:[facility] ADMISSION DATE: 07/02/20 PROGRESS NOTE DATE OF SERVICE: 07/19/2020 SUBJECTIVE: The patient's case was discussed with staff. He has no new complaint. OBJECTIVE: The patient is in good behavioral control with poor insight about his situation. ASSESSMENT: Vascular dementia. PLAN: The patient will be maintained on current medicines. I anticipate he can be discharged soon. He remains a very high fall risk, he is quite unsteady on his feet. Although, he is only oriented to person and has an advanced dementia, he has figured out how to turn his bed alarm off and then he gets out of bed. Staff is going to check to make sure the bed alarm is turned on every couple of hours. TRANSINT:[id number] Voice Confirmation ID: [id number] DOCUMENT ID: [id number] MARIA FERNANDA BLANKENSHIP MD at 1329 CC: [id number] DICTATION DATE: 07/19/20 1112 RUBBER ENGRAVER: 07/19/20 1432 ADM IN [place] [id number] [place] [address]
--- NOTE | 2020-07-20 17:30 | NUR ---
RECEIVED IN PATIENT ROOM. CALM AND COOPERATIVE WITH CARE AND ASSESSMENT. NO AGGRESSION NOTED. REDIRECT AND REORIENT NEEDED. EATING DINNER AT THIS TIME. CONTINUE PLAN OF CARE.
[2020-07-20 20:00] VITALS: BP 94/59
--- NOTE | 2020-07-21 01:28 | NUR ---
RECEIVED IN BEDROOM. RESTING IN BED WITH EYES OPEN. CALM AND COOPERATIVE WITH CARE AND ASSESSMENT. NO SIGNS OF AGGRESSION. NO STATEMENTS OF SELF HARM VOICED. ENCOURAGE TO EXPRESS NEEDS. REDIRECT AND REORIENT NEEDED. RESTING IN BED WITH EYES CLOSED AT THIS TIME. CONTINUE PLAN OF CARE.
--- NOTE | 2020-07-21 15:30 | PN ---
PATIENT:RENE ZHANG MEDICAL RECORD: [id number] LOCATION:[facility] ADMISSION DATE: 07/02/20 PROGRESS NOTE DATE OF SERVICE: 07/20/2020 SUBJECTIVE: The patient's case was discussed with staff. He has no new complaint. OBJECTIVE: The patient is oriented to person only. He is eating well and sleeping well. He is still intermittently turning off his bed alarm much to the distress of everyone trying to prevent him from falling. He is a very high fall risk. ASSESSMENT: Vascular dementia. PLAN: Current medicines have been reviewed and will be maintained along with current therapies. Placement at the [facility] is being sought and hopefully that will be arranged soon. TRANSINT:[id number] Voice Confirmation ID: [id number] DOCUMENT ID: [id number] MARIA FERNANDA BLANKENSHIP MD at 1530 CC: [id number] DICTATION DATE: 07/20/20 1620 CHESTNUT TANNER: 07/21/20 0107 ADM IN [facility] [address] [place] [address]
--- NOTE | 2020-07-21 17:40 | NUR ---
RECEIVED IN PATIENT ROOM. SITTING ON SIDE OF BED. CALM AND COOPERATIVE WITH CARE AND ASSESSMENT. NO AGGRESSIVE BEHAVIOR. REDIRECT AND REORIENT NEEDED. EATING DINNER AT THIS TIME. CONTINUE PLAN OF CARE.
[2020-07-21 20:00] VITALS: BP 80/48
--- NOTE | 2020-07-21 21:04 | NUR ---
RECEIVED IN BEDROOM. RESTING IN BED WITH EYES OPEN. CALM AND COOPERATIVE WITH CARE AND ASSESSMENT. NO SIGNS OF AGGRESSION. NO STATEMENTS OF SELF HARM VOICED. MORE ALERT AND ORIENTED X2 THIS EVENING. REDIRECT AND REORIENT NEEDED. RESTING IN BED WITH EYES CLOSED. CONTINUE PLAN OF CARE.
[2020-07-22 08:32] VITALS: BP 111/70
--- NOTE | 2020-07-22 14:38 | NUR ---
PATIENT MIN-MOD ASST TO STAND FROM WHEELCHAIR AND MIN ASST TO WALK 130 FEET WITH WALKER.
--- NOTE | 2020-07-22 16:06 | PN ---
PATIENT:RENE ZHANG MEDICAL RECORD: [id number] LOCATION:[facility] ADMISSION DATE: 07/02/20 PROGRESS NOTE DATE OF SERVICE: 07/21/2020 SUBJECTIVE: The patient's case was discussed with staff. He has no new complaint. OBJECTIVE: The patient is in good behavioral control. He has poor insight about his situation. He does tolerate his medicines well. ASSESSMENT: Dementia. PLAN: The patient is ready for discharge. The office of long-term care has not given approval. Once they do, he can be discharged. TRANSINT:[id number] Voice Confirmation ID: [id number] DOCUMENT ID: [id number] MARIA FERNANDA BLANKENSHIP MD at 1606 CC: [id number] DICTATION DATE: 07/21/201715 WELD FITTER: 07/22/20 0029 ADM IN [facility] [address] [place] [id number]
--- NOTE | 2020-07-22 16:26 | NUR ---
Nutrition Re-Assessment Diet: Regular PO intake: 100% x last 9 meals Last BM: 07/14/20 (per nursing flowsheet) Wt: 137# (07/19/20); Admit Wt: 134.2# (07/02/20) Meds noted: megace No new chem labs Estimated nutrition needs and nutrition diagnosis remain unchanged from initial nutrition assessment at this time. Patient is progressing towards meeting nutrition goals at this time. Recommendations/Interventions: -Recommend continue current diet. Will continue to honor food preferences. -Recommend MD to consider increase in bowel regimen to promote BM regularity and help preserve appetite. -RD will follow-up within 7 days.
--- NOTE | 2020-07-22 17:13 | NUR ---
CALM AND COOPERATIVE.COMPLIANT WITH STAFF AND MEDS.NO AGGRESSION ,DENIES THOUGHTS OF SELF HARM.WILL CONTINUE WITH CURRENT PLAN OF CARE,MONITOR FOR CHANGES AND SAFETY.PARTICIPATES IN ACTIVITIES.
--- NOTE | 2020-07-22 17:40 | NUR ---
RECEIVED IN PATIENT ROOM. RESTING IN BED WITH EYES OPEN. CALM AND COOPERATIVE WITH CARE AND ASSESSMENT. NO AGGRESSION NOTED. REDIRECT AND REORIENT NEEDED. EATING DINNER AT THIS TIME. CONTINUE PLAN OF CARE.
[2020-07-22 20:00] VITALS: BP 112/67
--- NOTE | 2020-07-22 21:43 | NUR ---
PT IS ALERT AND ORIENTED TO SELF ONLY. RECEIVED IN DAYROOM. WITHDRAWN FROM PEERS. COMPLIANT WITH ALL MEDICATIONS. COOPERATIVE WITH STAFF. MONITOR FOR SAFETY.
[2020-07-23 09:42] VITALS: BP 106/66
--- NOTE | 2020-07-23 10:55 | NUR ---
PATIENT MIN-MOD ASST TO STAND FROM WHEELCHAIR AND MIN ASST TO WALK 140 FEET USING WALKER.
--- NOTE | 2020-07-23 11:31 | NUR ---
SW SPOKE TO PT'S TO DISCUSS DISCHARGE PLANS FOR TOMORROW. PT WILL DISCHARGE BACK TO [facility] THAT REFERRED HIM. THIS WAS 'S FIRST CHOICE FOR PT TO RETURN TO [facility]. NO OTHER NEEDS WERE EXPRESSED AT THIS TIME.
--- NOTE | 2020-07-23 13:09 | PN ---
PATIENT:RENE ZHANG MEDICAL RECORD: [id number] LOCATION:[facility] ADMISSION DATE: 07/02/20 PROGRESS NOTE DATE OF SERVICE: 07/22/2020 SUBJECTIVE: The patient's case was discussed with staff. He has no new complaint. OBJECTIVE: The patient denies intent to harm himself or others. He does tolerate his medicines well. ASSESSMENT: Vascular dementia. PLAN: The patient's approval from the office of long-term care is back and as expected they have approved him for penitentiary placement. [facility] is the penitentiary the has selected. They will be contacted and from a clinical standpoint he is ready for discharge if they will take him. TRANSINT:[id number] Voice Confirmation ID: [id number] DOCUMENT ID: [id number] MARIA FERNANDA BLANKENSHIP MD at 1309 CC: [id number] DICTATION DATE: 07/22/201811 HULL MOLDER: 07/23/20 0007 ADM IN [facility] [address] [place] [address]
--- NOTE | 2020-07-23 13:24 | NUR ---
ADDITIONAL PAPERWORK SENT TO [facility] PER REQUEST FROM FACILITY.
[2020-07-23] MEDS ORDERED: ZOLOFT50 MG PO (14:49)
[2020-07-23] MEDS ORDERED: NAMENDA5 MG PO (14:49)
[2020-07-23] MEDS ORDERED: VITAMIN B-121000 MCG PO (14:50)
[2020-07-23] MEDS ORDERED: MEGACE40 MG PO (14:50)
[2020-07-23] MEDS ORDERED: ERGOCALCIF50000 UNIT PO (14:50)
[2020-07-23] MEDS ORDERED: KLONOPIN0.5 MG PO (14:50)
[2020-07-23] MEDS ORDERED: THERAGRAN M [BK1 TAB PO (14:51)
--- NOTE | 2020-07-23 18:32 | NUR ---
Rec'd patient this am up in his w/c. He can self propel. he is A/O times 3 to person, place, and situation. He is med compliant and takes meds whole without difficulty. He has shown no aggressive or aggitated behaviors towards staff or other patients. He sat in group activities/theray but participated very little. He is somewhat confused at times. He is directable and redirectable. He has been observed to either turn his bed/chair alarm off or unplug it if he is in bed. He is high risk for falls.
[2020-07-23 20:00] VITALS: BP 102/62
--- NOTE | 2020-07-23 21:22 | NUR ---
PT IS ALERT AND ORIENTED TO SELF ONLY. RECEIVED IN DAYROOM IN WHEELCHAIR. PT DENIES SI. FLAT AND WITHDRAWN. AGITATED WITH STAFF. COMPLIANT WITH ALL MEDICATIONS. EASY TO REDIRECT. MONITOR FOR SAFETY.
[2020-07-24 06:40] LABS: SARS-CoV-2 ANTIGEN NEGATIVE- SARS-COV-2 (NEGATIVE)
--- NOTE | 2020-07-24 09:10 | NUR ---
PT SITTING IN W/C AT THIS TIME. PT IS ALERT AND ORIENTED TO PERSON ONLY. CONFUSION NOTED. REDIRECT AND REORIENT NEEDED. DENIES SI. NO AGGRESSIVE BEHAVIORS NOTED. PT CAN BE WITHDRAWN FROM STAFF AND PEERS. CALM AND COOPERATIVE WITH ALL THINGS ASKED OF PT. COMPLIANT WITH MEDS, VITALS AND ASSESSMENTS. PT CAN MAKE NEEDS KNOWN. PT COVID SWAB WAS NEGATIVE AND FAXED TO [facility] THIS A.M. PER [facility] REQUEST. CHAIR ALARM IN PLACE AND ACTIVE. REEDUCATE ON ALARM SAFETY NEEDED. WILL CONT PLAN OF CARE.
[2020-07-24 09:34] VITALS: BP 108/87
--- NOTE | 2020-07-24 09:57 | NUR ---
NURSE CALLED REPORT TO PHILLIP AT [facility]. NURSE GAVE UPDATE ON BEHAVIORS, VITALS, HX. PT HAD PREVIOUSLY BEEN AT FACILITY BEFORE. NURSE SPOKE WITH [facility] FOR A PICKUP TIME. SHE STATED SHE WOULD GET BACK WITH A PICKIUP TIME.
--- NOTE | 2020-07-24 11:48 | NUR ---
PT D/C THIS SHIFT WITH [facility]. ALL PERSONAL BELONGINGS SENT WITH PT AT THIS TIME. PT IS CALM AND COOPERATIVE WITH W/C TRANSFER AND LEAVING TO A NEW FACILITY. NO AGRESSION OR BEHAVIORS NOTED. PAPERCOPY SENT WITH PT AND FAXED TO THE FACILITY WELL. RIANA ZHANG MADE AWARE OF PT LEAVING THIS UNIT AND D/C BACK TO [facility]. CALLBACK NUMBER LEFT WITH FACILITY AT THIS TIME.
--- NOTE | 2020-07-27 13:46 | PN ---
PATIENT:RENE ZHANG MEDICAL RECORD: [id number] LOCATION:[facility] ADMISSION DATE: 07/02/20 PROGRESS NOTE DATE OF SERVICE: 07/23/2020 SUBJECTIVE: The patient's case was discussed with staff. He has no new complaint. OBJECTIVE: The patient is in good behavioral control, but impaired cognitively. He is cooperative. ASSESSMENT: Dementia. PLAN: The patient will be transitioned out of the hospital tomorrow. He will be going to the [facility] for rehabilitative services. TRANSINT:[id number] Voice Confirmation ID: [id number] DOCUMENT ID: [id number] MARIA FERNANDA BLANKENSHIP MD at 1346 CC: [id number] DICTATION DATE: 07/23/20 160 GREEN PRIZE PACKER: 07/23/202131 DIS IN 07/24/20 [place] [address] [place] [address]
--- NOTE | 2020-07-27 13:46 | DS ---
PATIENT:RENE ZHANG :44 MEDICAL RECORD: [id number] DISCHARGE SUMMARY ADMISSION DATE: 07/02/20 DISCHARGE DATE: 07/24/20 DATE OF ADMISSION: 07/02/2020 DATE OF DISCHARGE: 07/24/2020 HISTORY OF PRESENT ILLNESS: The patient is a 80-year-old male who appears about his stated age and he admitted voluntarily. HISTORY OF PRESENT ILLNESS: The patient lived at home, had a fall, had an ORIF to the right hip, was then continued to medical and was discharged to rehab at [facility]. While he was there, he began yelling out at the nurses and then he was hitting staff and then made suicidal statements. The patient was agitated and aggressive and thought that they just threw out his stuff and he ended up here for suicidal ideation and aggressive behavior. During the hospital course, the patient was admitted to the hospital and was fully evaluated from both a medical, psychological, and social standpoint. He was found to primarily be suffering from dementia and was treated with both mood, thought and memory enhancing medications. He did show improvement, but was impaired cognitively and then was transferred back to [facility] for rehabilitation services. DIAGNOSES: AXIS I: Vascular dementia with behaviors. AXIS II: None. AXIS III: Hypertension, gout, ORIF to the right hip. AXIS IV: Moderate stressors. AXIS V: Global assessment of functioning is 35. PLAN: At the time of discharge, the patient was in good behavioral control. He was impaired cognitively. He was cooperative. He did not appear to be attending to any external stimuli. He was denying any suicidal ideation. He was tolerating his medications. His long-term prognosis is guarded and he was returned to [facility] to continue his rehabilitation. Dictated by: Shayla Martinez APN I have interviewed/examined the above patient and agree with these documented findings. TRANSINT:[id number] Voice Confirmation ID: [id number] DOCUMENT ID: [id number] Dictated By: SHAYLA MARTINEZ I have interviewed/examined the above patient and agree with these documented findings. DISCHARGE SUMMARY REPORT [id number] RENE ZHANGLONNY BLAKNENSHIP, MARIA FERNANDA SANCHES at 1346 CC: [id number] DICTATION DATE: 07/26/20 1111 SANITATION TRUCK CLEANER: 07/26/202041 DIS IN 07/24/20 [facility] [address] [facility]
== END 2020-07-24 11:25 | DRG 57 ==
LOC: D.PSYCH 20:05
PROVIDERS: Family Medicine; ADMIT Psychiatry & Neurology Psychiatry; ATTEND Psychiatry & Neurology Psychiatry
DX: G30.1 Alzheimer's disease with late onset (principal); F02.81 Dementia in other diseases classified elsewhere, unspecified severity, with behavioral disturbance; I10 Essential (primary) hypertension; E55.9 Vitamin D deficiency, unspecified; D64.9 Anemia, unspecified; M10.9 Gout, unspecified; R05 Cough; E53.8 Deficiency of other specified B group vitamins

== ENCOUNTER 2020-08-30 11:05 | Emergency (ER) | payer MEDICARE, OTHER ==
[~2020-08-30] VITALS: Ht 170.2 cm; Wt 75.0 kg
[~2020-08-30 11:05] MED LIST changes: +ERGOCALCIF50000 UNIT PO; +KLONOPIN0.5 MG PO; +MEGACE40 MG PO; +NAMENDA5 MG PO; +THERAGRAN M [BK1 TAB PO; +VITAMIN B-121000 MCG PO; +ZOLOFT50 MG PO
[2020-08-30 11:08] VITALS: Ht 170.2 cm; Wt 75.0 kg
[2020-08-30 11:55] LABS: APTT 29.7 SECONDS (22.8-39.4); CALC OSMOLALITY 266 mosm/kg (275-300); CALCIUM 8.4 mg/dL (8.5-10.1); CARBON DIOXIDE 23.7 mmol/L (21.0-32.0); CHLORIDE - SERUM 99 mmol/L (98-107); CREATININE - SERUM 1.2 mg/dL (0.6-1.3); GLUCOSE 104 mg/dL (74-106); INR 1.36 (0.85-1.17); POTASSIUM - SERUM 4.6 mmol/L (3.5-5.1); PROTIME 15.5 SECONDS (11.6-15.0); SODIUM 131 mmol/L (136-145); UREA NITROGEN 25 mg/dL (7-18); eGFR NON AFRICAN AMERICAN 62 mL/min (90-120)
[2020-08-30 12:03] LABS: BASOPHILS 0.4 % (0-2); MCH 31.1 pg (26.0-34.0)
[2020-08-30 12:08] LABS: EOSINOPHILS 0.9 % (0-7); HEMATOCRIT 33.7 % (42.0-54.0); HEMOGLOBIN 11.3 g/dL (13.5-17.5); LYMPHOCYTES 8.2 % (15-50); MCHC 33.6 g/dL (31.0-37.0); MCV 92.5 fL (80.0-100.0); MEAN PLATELET VOLUME 7.3 fL (7.4-10.4); MONOCYTES 8.8 % (2-11); NEUTROPHILS 81.7 % (40-80); PLATELET COUNT 279 10x3/uL (130-400); RBC 3.64 10x6/uL (4.20-6.10); RDW 14.3 % (11.5-14.5); WBC 8.1 10x3/uL (4.8-10.8)
[2020-08-30 12:13] LABS: ALKALINE PHOSPHATASE 80 U/L (30-120); ALT (SGPT) 24 U/L (10-68); BILIRUBIN - TOTAL 0.39 mg/dL (0.2-1.3); CKMB 0.4 U/L (0.0-3.6); CREATINE KINASE 58 UL (21-232); MAGNESIUM - SERUM 2.2 mg/dL (1.8-2.4); PROTEIN - SERUM 6.1 g/dL (6.4-8.2)
[2020-08-30 12:14] LABS: TROPONIN-I < 0.017 ng/mL (0.000-0.060)
[2020-08-30 12:21] LABS: BILIRUBIN NEGATIVE (NEGATIVE); KETONE NEGATIVE (NEGATIVE); NITRITE NEGATIVE (NEGATIVE); UROBILINOGEN NORMAL mg/dL (< 2)
[2020-08-30 12:22] LABS: BACTERIA RARE HPF (NONE SEEN); SQUAMOUS EPITHELIAL NONE SEEN HPF (0-4); WHITE CELLS - URINE 0-5 HPF (0-1)
[2020-08-30 14:39] VITALS: BP 109/76
== END 2020-08-30 15:37 | disposition other institution (70) ==
LOC: D.ER 11:05
PROVIDERS: Family Medicine
DX: I95.9 Hypotension, unspecified (principal); J18.9 Pneumonia, unspecified organism; I10 Essential (primary) hypertension